=== PATIENT | female | born 1960 | race Caucasian/White ===

== ENCOUNTER → 2017-09-02 10:33 | Outpatient (CLI) | payer OTHER, SELFPAY ==
[2017-09-02 10:50] LABS: Potassium 5.1 mmol/L (3.5-5.1)
== END ==
PROVIDERS: Family Provider Internal Medicine; PCP Internal Medicine; Visit Provider Internal Medicine
DX: E87.5 Hyperkalemia (principal)
CPT/HCPCS: 84132

== ENCOUNTER 2017-10-19 11:31 | Emergency (ER) | payer OTHER, SELFPAY ==
[2017-10-19 11:33] VITALS: BP 125/74; PULSE 93; RESP 22; TEMP 36.5; O2SAT 97; BMI 22.4
--- NOTE | 2017-10-19 11:58 | US_ITS ---
STUDY: ABDOMINAL ULTRASOUND - RIGHT UPPER QUADRANT REASON FOR VISIT: Female, 57 years old. Abdominal pain. Nausea and vomiting. TECHNIQUE: Ultrasound evaluation of the right upper quadrant was performed with real-time and static hopper-scale imaging. TECHNICAL QUALITY: Adequate. COMPARISON: None. FINDINGS: Liver: The liver measures 12.0 cm. There is normal echogenicity of the liver. The bile ducts are within normal limits. There is hepatic color flow. The direction of portal flow is hepatopetal. There is no demonstrated mass lesion. Gallbladder: Normal distended gallbladder. The gallbladder wall measures 2.4 mm. There is a negative sonographic Stuart's sign. There is no pericholecystic fluid. There are no gallstones. Common Bile Duct (C.B.D.): The common bile duct measures 5.3 mm. Pancreas: Normal size of the head, body of the pancreas. The tail portion was obscured due to overlying bowel gas. There is normal echogenicity of the pancreas. There is no demonstrated pancreatic mass or cyst. Right Kidney: Normal size of the right kidney. The right kidney measures 10.4 cm x 4.4 cm x 5.6 cm. Normal renal cortex. The right cortex measures 1.6 cm. There is no demonstrated renal mass or cyst. There is no right hydronephrosis. US/Gallbladder IMPRESSION: Normal right upper quadrant ultrasound examination. Electronically Signed: Harsh Almeida MD at 12:56 EDT Tel [phone], Service support ,
[2017-10-19] MEDS: proMETHazine 25 MG/ML Syringe 12.5 MG IV (12:04)
[2017-10-19] MEDS: Ketorolac 30 MG/ML Syringe 15 MG IV (12:07)
[2017-10-19] MEDS: Morphine 4 MG/ML Syringe IV (12:07)
[2017-10-19 12:11] LABS: Absolute Lymphocyte Count 1.53 X10^3/ul (0.83-4.51); Absolute Neutrophil Count 8.6 X10^3/uL (2.0-7.7); Basophil# 0.02 X10^3/uL; Basophil% 0.2 % (0-1); Eosinophil# 0.02 X10^3/uL; Eosinophils% 0.2 % (0-5); Hemoglobin 15.5 g/dl (12.0-15.0); Lymphocyte # 1.53 X10^3/ul (4.0); Lymphocyte % 14.1 % (19-41); Mean Corp Hgb Conc 33.7 g/gl (32-36); Mean Corpuscular Hgb 27.3 pg (27.0-32.0); Mean Corpuscular Volume 81.1 fL (81-99); Mean Platelet Vol. 10.5 fl (6.2-12.0); Monocyte# 0.66 X10^3/uL; Monocyte% 6.1 % (0-10); Neutrophil # 8.59 X10^3/uL (2.7-7.7); Platelet Count 282 K/mm3 (150-450); RBC Distribution Width CV 14.3 % (11.6-14.6); RBC Distribution Width SD 42.7 fl (35.1-43.9); Red Blood Count 5.67 M/mm3 (4.2-5.4); White Blood Count 10.9 K/mm3 (4.4-11.0)
[2017-10-19] MEDS: 0.9% Normal Saline 1,000 ML 1000 ML IV (12:14)
--- NOTE | 2017-10-19 12:15 | ED.DCSUM_ITS ---
History of Present Illness Chief Complaint: Abd Pain Informant: Patient Onset: Days - 2 Context: Sudden Onset - woke her up at 1 AM Timing: Continuous Quality: dull. constant w/ colicky exac's at times. Location: RUQ Current Severity: Severe Maximum Severity: Severe Worsened by: nothing. has not been eating. Relieved by: nothing. has tried no meds. Associated Symptoms: n/v/d Narrative: Patient states the day before the onset, she felt bloated and decreased appetite , and some heartburn which she has a history of and takes no medication for. That night, 2 nights ago, she woke up in the middle the night with this pain that she did not have before, as well as intense vomiting. Yesterday she basically ate nothing but a cracker, when she ate that she vomited immediately but it did not do much more pain. Her pain has worsened however. She denies any radiation into the back or shoulder. She has had a prior but no other prior abdominal surgeries or excisions. No chest discomfort now. No dyspnea. Prior similar symptoms: No - Past Medical History (1) DM type 2 (diabetes mellitus, type 2) Status: Chronic (2) GERD (gastroesophageal reflux disease) Status: Chronic (3) COPD (chronic obstructive pulmonary disease) Status: Chronic (4) Factor V Leiden Status: Chronic Past Medical History - Allergies and Home Meds Allergies/Adverse Reactions: Allergies No Known Allergies Allergy (Verified 10/19/17 11:35) Home Medications: Home Medications Medication Instructions Recorded Sertraline HCl [Zoloft] 25 mg PO DAILY 01/31/17 Apixaban [Eliquis] 1 tab PO BID 03/10/17 Amlodipine [Norvasc] 2.5 mg PO DAILY 10/19/17 Budesonide/Formoterol 160/4.5 2 puff IH BID 10/19/17 [Symbicort 160/4.5 Mcg Inhaler (SP)] Empagliflozin [Jardiance] 1 tab PO DAILY 10/19/17 Metformin HCl 500 mg PO DAILY 10/19/17 Metformin HCl [Glucophage] 1,000 mg PO QHS 10/19/17 Omeprazole 20 mg PO DAILY #14 capsule. 10/19/17 Ondansetron [Zofran Odt] 8 mg PO Q8H PRN PRN #12 10/19/17 Risedronate Sodium [Risedronate 1 tab PO QMONTH 10/19/17 Sodium] Rosuvastatin Calcium 10 mg PO DAILY 10/19/17 Primary Care Physician: Rosemary Danielle DO [Primary Care Provider] - Surgical History: - - c-sections Smoking Status: Current every day smoker Drugs: None Review of Systems All systems negative except as indicated General: Reports: Malaise. Denies: Fever Cardiovascular: Denies: Chest pain Respiratory: Reports: Cough - chronic, no chg. Denies: Dyspnea Gastrointestinal: Reports: Abdominal pain, Nausea, Vomiting, Diarrhea. Denies: Melena, Hematochezia Genitourinary: Denies: Dysuria, Hematuria Musculoskeletal: Denies: Neck pain, Back pain Skin: Denies: Rash, Abscess Neurological: Denies: Headache, Weakness, Parasthesia, Numbness Psych: Denies: Suicidal thoughts, Suicidal ideations Endocrine: Denies: Polyuria, Polydipsia Hematologic: Denies: Easy bruising, Easy bleeding Physical Exam Vital Signs/Narrative: Vital Signs Temp Pulse Resp BP Pulse Ox 10/19/17 11:33 97.7 F L 93 22 H 125/74 H 97 Inital Vital Signs reviewed: Yes General: Well nourished, Well developed, - - in mild acute painful distress Head: Normocephalic, Atraumatic Eyes: Perrl, EOMI ENT: Moist mucous membranes, No rhinorrhea Neck: Supple, Nontender Cardiovascular: Regular rate, Regular rhythm, No murmurs Respiratory: No distress, CTA bilaterally, Chest nontender Abdomen: Soft, Nondistended, Normal bowel sounds, Tender - RUQ > epigast. otherwise, nontender., Guarding - RUQ. Negative for: Rebound tenderness Back: Nontender, Normal Inspection. Negative for: CVA tenderness Extremities: Nontender, No edema Skin: Normal color, No rash Neurological: Alert, Oriented x3, Cranial nerves II-XII grossly intact, Normal Strength, Normal Sensation Psychological: Normal affect Diagnostic/Tx/Re-eval Impressions Gallbladder Ultrasound 10/19/17 11:58 IMPRESSION: Normal right upper quadrant ultrasound examination. Electronically Signed: Harsh Almeida MD at 12:56 EDT Tel [phone], Service support , Abdomen/Pelvis CT 10/19/17 13:15 IMPRESSION: No acute abnormality is seen. Electronically Signed: Harsh Almeida MD at 14:13 EDT Tel [phone], Service support , 10/19/17 11:58 Gallbladder [US] Stat 10/19/17 13:15 CT Abd [Abdomen/Pelvis without Cont] [CT] Stat Laboratory Results 10/19/17 10/19/17 10/19/17 Range/Units 11:50 11:50 13:00 WBC 10.9 (4.4-11.0) K/mm3 RBC 5.67 H (4.2-5.4) M/mm3 Hgb 15.5 H (12.0-15.0) g/dl Hct 46.0 (37-47) % MCV 81.1 (81-99) fL MCH 27.3 (27.0-32.0) pg MCHC 33.7 (32-36) g/gl RDW 14.3 (11.6-14.6) % RDW Differential 42.7 (35.1-43.9) fl Plt Count 282 (150-450) K/mm3 MPV 10.5 (6.2-12.0) fl Immature Gran % (Auto) 0.400 (0.0-0.9) % Neut % (Auto) 79.0 H (47-70) % Lymph % (Auto) 14.1 L (19-41) % [place] % (Auto) 6.1 (0-10) % Eos % (Auto) 0.2 (0-5) % Baso % (Auto) 0.2 (0-1) % Absolute Neuts (auto) 8.6 H (2.0-7.7) X10^3/uL Absolute Lymphs (auto) 1.53 (0.83-4.51) X10^3/ul Total Counted Not Reportable Sodium 136 (136-145) mmol/L Potassium 3.8 (3.5-5.1) mmol/L Chloride 98 (98-107) mmol/L Carbon Dioxide 25.0 (21.0-32.0) mmol/L Anion Gap 13 (5-15) BUN 23 H (7-18) mg/dL Creatinine 0.88 (0.55-1.02) mg/dL Estim Creat Clear Calc 58.35 ml/min Est GFR (MDRD) Af Amer 85 (>60) mL/min Est GFR (MDRD) Non-Af 70 (>60) mL/min BUN/Creatinine Ratio 26.0 H (10-20) RATIO Glucose 164 H (74-106) mg/dL Calcium 9.1 (8.5-10.1) mg/dL Total Bilirubin 0.60 (0.20-1.00) mg/dL AST 14 L (15-37) U/L ALT 16 (13-56) U/L Alkaline Phosphatase 103 (45-117) U/L Total Protein 8.3 H (6.4-8.2) g/dL Albumin 3.7 (3.2-5.0) g/dL Globulin 4.6 H (2.2-4.2) g/dL Albumin/Globulin Ratio 0.8 L (0.9-2.4) RATIO Lipase 112 (73-393) U/L Urine Color Yellow (Yellow) Urine Clarity Sl. Cloudy (Clear) Urine pH 6.0 (5.0 - 8.0) Ur Specific [place] 1.020 (1.002-1.030) Urine Protein 100 H (Negative) mg/dl Urine Glucose (UA) 1000 H (Normal) mg/dl Urine Ketones 150 H (Negative) mg/dl Urine Occult Blood 250 H (Negative) /ul Urine Nitrite Negative (Negative) Urine Bilirubin Negative (Negative) mg/dL Urine Urobilinogen Normal (Normal) mg/dl Ur Leukocyte Esterase Negative (Negative) /ul Urine RBC 25-50 SEEN (0-5) /hpf Urine WBC 0-5 SEEN (0-5) /hpf Ur Squamous Epith Cells 0-5 SEEN (5-10) /hpf Urine Bacteria 0 SEEN (None Seen) /hpf Urine Mucus 0 SEEN (<or=2+) /hpf Urine Yeast 1+ (None Seen) /hpf - Medical Decision Making Labs are unremarkable, there is a slight leftward shift but the white blood count is within normal limits, and LFTs and lipase are all within normal limits. Urinalysis shows blood but no signs of infection. Right upper quadrant ultrasound is normal aside from a distended gallbladder, there is a negative sonographic Stuart's. No stones are seen. The right kidney is within normal limits. Patient was treated with morphine and Toradol and Phenergan, she is drastically improved on reevaluation. I sent her for CT, it shows no acute abnormalities except for some retroperitoneal lymphadenopathy. She is feeling much better drinking fluids without difficulty. She has history of reflux and it is untreated right now because she has not had many symptoms of that recently. Peptic ulcer/duodenal ulcer disease is in the differential diagnosis here, I think it is reasonable to put her on a two-week course of a PPI and advised that she follow-up with her doctor. She is comfortable with this plan. Of note, we also discussed the possibility of a calculus biliary pain, and the need for advanced outpatient testing in order to determine that. She does not have acute cholecystitis at this time. Also in the differential diagnosis is viral gastritis. ED Disposition - Plan for ED Patient: Disposition: Home or Assisted Living Chief Complaint: Abd Pain Diagnosis: RUQ abdominal pain, GERD (gastroesophageal reflux disease) Instructions: ED Abdominal Pain Unkn Cause Prescriptions: Ondansetron [Zofran Odt] 8 mg PO Q8H PRN PRN #12 PRN Reason: Nausea Omeprazole 20 mg PO DAILY #14 capsule. Referrals: Rosemary Danielle DO [Primary Care Provider] - 3-5 Days if not improving
[2017-10-19 12:16] LABS: POSITIVE COUNT NO; POSITIVE DIFFERENTIAL NO; POSITIVE MORPHOLOGY NO
[2017-10-19 12:20] LABS: ALB/GLOB Ratio 0.8 RATIO (0.9-2.4); AST(SGOT) 14 U/L (15-37); Alanine Aminotransfer ALT/SGPT 16 U/L (13-56); Albumin, Serum 3.7 g/dL (3.2-5.0); Alkaline Phosphatase 103 U/L (45-117); Anion Gap 13 (5-15); BUN 23 mg/dL (7-18); Calcium,Total 9.1 mg/dL (8.5-10.1); Chloride 98 mmol/L (98-107); Creatinine, Serum 0.88 mg/dL (0.55-1.02); EST Glomerular Filtration Rate 70 mL/min (>60); Est Glom Filt Rate - Afr Amer 85 mL/min (>60); Estimated Creatinine Clearance 58.35 ml/min; Globulin 4.6 g/dL (2.2-4.2); Glucose 164 mg/dL (74-106); Lipase 112 U/L (73-393); Potassium 3.8 mmol/L (3.5-5.1); Protein, Total 8.3 g/dL (6.4-8.2); Sodium Level 136 mmol/L (136-145)
[2017-10-19 13:09] LABS: Bacteria 0 SEEN /hpf (None Seen); Mucous, Urine 0 SEEN /hpf (<or=2+)
--- NOTE | 2017-10-19 13:15 | CT_ITS ---
STUDY: CT ABDOMEN AND PELVIS WITHOUT CONTRAST REASON FOR EXAM: Female, 57 years old. Right upper abdominal pain and nausea. Right flank pain. RADIATION DOSAGE (If Supplied By Facility): CTDIvol = ( 6.3 ) mGy, DLP = ( 276.91 ) mGycm TECHNIQUE: Transaxial images were obtained from the dome of the diaphragm to the symphysis pubis without oral contrast, and without intravenous contrast. Sagittal and coronal images were reconstructed. Individualized dose optimization techniques were used for this CT. COMPARISON: Comparison is made with prior study dated March 10, 2017. FINDINGS: The visualized lung bases are unremarkable. The visualized portions of the heart are within normal limits. Normal liver. Normal gallbladder and extrahepatic biliary system. Normal spleen. Normal pancreas. Normal bilateral adrenal glands. Normal right kidney. Normal left kidney. Normal visualized stomach. Normal small intestine. Normal colon. The appendix is visualized and appears normal. There is scattered atherosclerotic calcification of the abdominal aorta, without a demonstrated aneurysm. 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 There is borderline retroperitoneal lymphadenopathy with enlarged nodes no greater than 10mm in the short axis diameter. Normal urinary bladder. Findings in keeping with enlarged fibroid uterus. Normal abdominal wall. Normal osseous structures. CT/Abdomen/Pelvis without Cont IMPRESSION: No acute abnormality is seen. Electronically Signed: Harsh Almeida MD at 14:13 EDT Tel [phone], Service support ,
[2017-10-19 13:18] LABS: Color, Urine Yellow (Yellow); Glucose, Dipstick 1000 mg/dl (Normal); Leukocyte Esterase-Dipstick Negative /ul (Negative); Nitrite-Dipstick Negative (Negative); Occult Blood-Urine 250 /ul (Negative); Protein-Dipstick 100 mg/dl (Negative); Urine Bilirubin Dipstick Negative (Negative); Urine Clarity Sl. Cloudy (Clear); Urine Urobilinogen Normal (Normal)
[2017-10-19 13:19] LABS: Ketone-Dipstick 150 mg/dl (Negative)
--- NOTE | 2017-10-19 13:21 | ED.RN ---
DR. RIOS NOTIFIED OF CRITICAL LAB RESULTS. PT HAS 150 KETONES IN URINE. NO ORDERS RECEIVED.
[2017-10-19 13:27] LABS: Red Blood Cells-Urine 25-50 SEEN /hpf (0-5); Squamous Epithelial Cells - UA 0-5 SEEN /hpf (5-10); White Blood Cells 0-5 SEEN /hpf (0-5); Yeast-Urine 1+ /hpf (None Seen)
[2017-10-19 16:48] VITALS: BP 132/57; PULSE 81; RESP 16; O2SAT 96
== END 2017-10-19 16:50 | disposition home or self-care (01) ==
PROVIDERS: Emergency Provider Emergency Medicine; Family Provider Internal Medicine; PCP Internal Medicine
DX: K21.9 Gastro-esophageal reflux disease without esophagitis (principal); R10.11 Right upper quadrant pain; E11.9 Type 2 diabetes mellitus without complications; J44.9 Chronic obstructive pulmonary disease, unspecified; D68.51 Activated protein C resistance; F17.200 Nicotine dependence, unspecified, uncomplicated; Z79.02 Long term (current) use of antithrombotics/antiplatelets; Z79.51 Long term (current) use of inhaled steroids; Z79.84 Long term (current) use of oral hypoglycemic drugs; Z79.899 Other long term (current) drug therapy
CPT/HCPCS: 74176; 76705; 80053; 81001; 83690; 85025; 96361; 96374; 96375; 99284; J7030; A4216

== ENCOUNTER → 2017-10-20 13:52 | Outpatient (CLI) | payer OTHER, SELFPAY ==
[2017-10-20 14:12] LABS: Absolute Lymphocyte Count 1.84 X10^3/ul (0.83-4.51); Absolute Neutrophil Count 7.7 X10^3/uL (2.0-7.7); Basophil# 0.02 X10^3/uL; Basophil% 0.2 % (0-1); Eosinophil# 0.06 X10^3/uL; Eosinophils% 0.6 % (0-5); Hematocrit 44.5 % (37-47); Hemoglobin 14.6 g/dl (12.0-15.0); Lymphocyte # 1.84 X10^3/ul (4.0); Lymphocyte % 17.4 % (19-41); Mean Corp Hgb Conc 32.8 g/gl (32-36); Mean Corpuscular Hgb 27.1 pg (27.0-32.0); Mean Corpuscular Volume 82.6 fL (81-99); Monocyte# 0.99 X10^3/uL; Monocyte% 9.4 % (0-10); Neutrophil # 7.65 X10^3/uL (2.7-7.7); Neutrophil % 72.2 % (47-70); Platelet Count 258 K/mm3 (150-450); RBC Distribution Width CV 13.9 % (11.6-14.6); RBC Distribution Width SD 41.4 fl (35.1-43.9); Red Blood Count 5.39 M/mm3 (4.2-5.4); White Blood Count 10.6 K/mm3 (4.4-11.0)
[2017-10-20 14:13] LABS: POSITIVE COUNT NO; POSITIVE DIFFERENTIAL NO; POSITIVE MORPHOLOGY NO
[2017-10-20 14:26] LABS: AST(SGOT) 14 U/L (15-37); Alanine Aminotransfer ALT/SGPT 13 U/L (13-56); Albumin, Serum 3.2 g/dL (3.2-5.0); Alkaline Phosphatase 85 U/L (45-117); Anion Gap 9 (5-15); BUN 21 mg/dL (7-18); Calcium,Total 8.2 mg/dL (8.5-10.1); Chloride 102 mmol/L (98-107); EST Glomerular Filtration Rate 92 mL/min (>60); Est Glom Filt Rate - Afr Amer 111 mL/min (>60); Globulin 3.3 g/dL (2.2-4.2); Glucose 100 mg/dL (74-106); Potassium 4.3 mmol/L (3.5-5.1); Protein, Total 6.5 g/dL (6.4-8.2); Sodium Level 137 mmol/L (136-145)
== END ==
PROVIDERS: Family Provider Internal Medicine; PCP Internal Medicine; Visit Provider Internal Medicine
DX: R11.2 Nausea with vomiting, unspecified (principal)
CPT/HCPCS: 80053; 85025

== ENCOUNTER → 2018-02-17 13:08 | Outpatient (CLI) | payer OTHER, SELFPAY ==
[2018-02-17 13:15] LABS: Bacteria 0 SEEN /hpf (None Seen); Mucous, Urine 0 SEEN /hpf (<or=2+); White Blood Cells 0 SEEN /hpf (0-5)
[2018-02-17 13:18] LABS: Color, Urine Yellow (Yellow); Glucose, Dipstick 1000 mg/dl (Normal); Ketone-Dipstick Negative (Negative); Leukocyte Esterase-Dipstick Negative /ul (Negative); Nitrite-Dipstick Negative (Negative); Occult Blood-Urine 250 /ul (Negative); Protein-Dipstick 500 mg/dl (Negative); Urine Bilirubin Dipstick Negative (Negative); Urine Clarity Clear (Clear); Urine Urobilinogen Normal (Normal)
[2018-02-17 13:22] LABS: Absolute Lymphocyte Count 2.05 X10^3/ul (0.83-4.51); Absolute Neutrophil Count 7.1 X10^3/uL (2.0-7.7); Basophil# 0.03 X10^3/uL; Basophil% 0.3 % (0-1); Eosinophil# 0.14 X10^3/uL; Eosinophils% 1.4 % (0-5); Hematocrit 43.5 % (37-47); Hemoglobin 13.9 g/dl (12.0-15.0); Lymphocyte # 2.05 X10^3/ul (4.0); Lymphocyte % 20.7 % (19-41); Mean Corpuscular Hgb 27.4 pg (27.0-32.0); Mean Corpuscular Volume 85.8 fL (81-99); Mean Platelet Vol. 10.3 fl (6.2-12.0); Monocyte# 0.58 X10^3/uL; Monocyte% 5.9 % (0-10); Neutrophil % 71.6 % (47-70); POSITIVE COUNT NO; POSITIVE DIFFERENTIAL NO; POSITIVE MORPHOLOGY NO; Platelet Count 271 K/mm3 (150-450); RBC Distribution Width CV 14.6 % (11.6-14.6); RBC Distribution Width SD 45.4 fl (35.1-43.9); Red Blood Count 5.07 M/mm3 (4.2-5.4); White Blood Count 9.9 K/mm3 (4.4-11.0)
[2018-02-17 13:23] LABS: Red Blood Cells-Urine 0-5 SEEN /hpf (0-5); Squamous Epithelial Cells - UA 0-5 SEEN /hpf (5-10)
[2018-02-17 13:24] LABS: Fine Granular Cast- Urine 0-5 SEEN /lpf (0-5)
[2018-02-17 13:40] LABS: ALB/GLOB Ratio 0.8 RATIO (0.9-2.4); AST(SGOT) 15 U/L (15-37); Alanine Aminotransfer ALT/SGPT 20 U/L (13-56); Albumin, Serum 2.8 g/dL (3.2-5.0); Alkaline Phosphatase 105 U/L (45-117); Anion Gap 9 (5-15); BUN 15 mg/dL (7-18); BUN/Creat Ratio 20.2 RATIO (10-20); Calcium,Total 8.4 mg/dL (8.5-10.1); Chloride 99 mmol/L (98-107); Creatinine, Serum 0.74 mg/dL (0.55-1.02); EST Glomerular Filtration Rate 85 mL/min (>60); Est Glom Filt Rate - Afr Amer 103 mL/min (>60); Globulin 3.7 g/dL (2.2-4.2); Glucose 192 mg/dL (74-106); Potassium 4.1 mmol/L (3.5-5.1); Protein, Total 6.5 g/dL (6.4-8.2); Sodium Level 137 mmol/L (136-145); Thyroid Stim Hormone (TSH) 1.07 uIU/mL (0.358-3.74)
== END ==
PROVIDERS: Family Provider Internal Medicine; PCP Internal Medicine; Visit Provider Internal Medicine
DX: R60.9 Edema, unspecified (principal)
CPT/HCPCS: 80053; 81001; 83880; 84443; 85025

== ENCOUNTER → 2018-02-18 14:39 | Outpatient (CLI) | payer OTHER, SELFPAY ==
--- NOTE | 2018-02-18 14:42 | VDLE_ITS ---
Reason For Study: LEG SWELLING RIGHT LEFT GSV is normal. GSV is normal. CFV is partially compressible with bright CFV is partially compressible with bright intraluminal echoes consistant with chronic intraluminal echoes consistant with chronic clot. clot. FV is compressible, spontaneous, phasic, FV is compressible, spontaneous, phasic, competent and demonstrates normal competent and demonstrates normal augmentation. augmentation. POP V is compressible, spontaneous, phasic, POP V is compressible, spontaneous, phasic, competent and demonstrates normal competent and demonstrates normal augmentation. augmentation. T/P Trunk is compressible. T/P Trunk is compressible. PTV is compressible. PTV is compressible. RT PerV is compressible. LT PerV is compressible. Procedure Exam performed in department. A preliminary report was called and/or faxed to Dr. Danielle. Interpretation Summary Chronic venous changes are noted in the common femoral veins bilaterally, which are partially compressible and demonstrate bright intraluminal echogenicity. The remainder of the deep venous system is patent and compressible bilaterally. The femoral veins and popliteal veins are competent bilaterally. The greater saphenous veins appear bilaterally patent and compressible segmentally. Ordering Physician: Rosemary Danielle Referring Physician: Rosemary Danielle Performed By: Saritha Dominguez RVT
== END ==
PROVIDERS: Family Provider Internal Medicine; PCP Internal Medicine; Visit Provider Internal Medicine
DX: R60.9 Edema, unspecified (principal)
CPT/HCPCS: 93970

== ENCOUNTER → 2018-03-16 13:37 | Outpatient (CLI) | payer OTHER, SELFPAY ==
--- NOTE | 2018-03-16 13:40 | ECHOD_ITS ---
Reason For Study: Edema of both legs Procedure This was a 2D Doppler, Color Flow transthoracic echocardiogram. The exam was of adequate technical quality. Exam performed in department. Left Ventricle Normal LV size. Left ventricular systolic function is normal. The estimated ejection fraction is 65 %. Transmitral doppler flow suggestive of impaired relaxation of left ventricle. No regional wall motion abnormalities noted. Right Ventricle Normal RV size. Normal systolic function. Atria Normal left atrium. Normal right atrium. No doppler evidence for ASD. Mitral Valve There is no mitral annular calcification. Normal mitral valve. Trivial mitral valve insufficiency. Tricuspid Valve Normal tricuspid valve. Trivial tricuspid valve insufficiency. Right ventricular systolic pressure estimated to be 28 mmHg. Aortic Valve Trisinus/trileaflet aortic valve. Normal aortic valve. Pulmonic Valve The pulmonic valve is not well visualized. Great Vessels Normal sized aortic root. Pericardium/Pleural Trivial pericardial effusion. There are no echocardiographic indications of cardiac tamponade. MMode/2D Measurements & Calculations LVIDd: 4.9 cm IVSd: 1.0 cm LVOT diam: 2.0 cm LVIDs: 3.1 cm LVPWd: 1.0 cm LVOT area: 3.0 cm2 FS: 35.8 % Ao root diam: 3.0 cm LAV(MOD-bp): 53.7 ml LVAd ap4: 23.8 cm2 LA dimension: 3.5 cm LAV(MOD-bp) Indexed: 32.5 ml/m2 EDV(MOD-sp4): 67.9 ml LAV(MOD-sp2): 46.3 ml EDV(sp4-el): 70.0 ml LAV(MOD-sp4): 52.9 ml LVAs ap4: 12.2 cm2 ESV(MOD-sp4): 23.2 ml ESV(sp4-el): 22.4 ml EF(MOD-sp4): 65.8 % EF(sp4-el): 68.0 % SV(MOD-sp4): 44.7 ml SV(sp4-el): 47.6 ml LA A4 area: 17.0 cm2 RA A4 area: 14.6 cm2 Time Measurements MV dec time: 0.17 sec Doppler Measurements & Calculations MV E max allan: 77.2 cm/sec Lat Peak E' Allan: 11.4 cm/sec Med Peak E' Allan: 7.3 cm/sec MV A max allan: 101.4 cm/sec E/E' lat: 6.8 E/E' med: 10.6 MV E/A: 0.76 MV V2 max: 114.0 cm/sec MV P1/2t max allan: 96.6 cm/sec Ao V2 max: 143.8 cm/sec MV max P.2 mmHg MV P1/2t: 49.6 msec Ao max P.3 mmHg MV V2 mean: 75.0 cm/sec MV dec slope: 570.7 cm/sec2 Ao V2 mean: 92.3 cm/sec MV mean P.6 mmHg MVA(P1/2t): 4.4 cm2 Ao mean P.9 mmHg MV V2 VTI: 20.8 cm Ao V2 VTI: 29.2 cm MVA(VTI): 3.8 cm2 TRAVIS(I,D): 2.7 cm2 TRAVIS(V,D): 2.5 cm2 LV V1 max: 116.5 cm/sec SV(LVOT): 78.7 ml PA V2 max: 90.5 cm/sec LV V1 max P.4 mmHg LV V1 mean P.7 mmHg LV V1 mean: 77.5 cm/sec LV V1 VTI: 25.8 cm TR max allan: 251.4 cm/sec TR max P.3 mmHg Interpretation Summary Left ventricular systolic function is normal. The estimated ejection fraction is 65 %. Trivial mitral valve insufficiency. Trivial tricuspid valve insufficiency. Trivial pericardial effusion. There are no echocardiographic indications of cardiac tamponade. Right ventricular systolic pressure estimated to be 28 mmHg. Transmitral doppler flow suggestive of impaired relaxation of left ventricle Ordering Physician: Rosemary Danielle Referring Physician: Rosemary Danielle Performed By: Moris Perez RCS
== END ==
PROVIDERS: Family Provider Internal Medicine; PCP Internal Medicine; Referring Provider Internal Medicine; Visit Provider Internal Medicine
DX: R60.0 Localized edema (principal)
CPT/HCPCS: 93306

== ENCOUNTER → 2018-03-25 14:30 | Outpatient (CLI) | payer OTHER, SELFPAY ==
--- NOTE | 2018-03-25 14:31 | BI_ITS ---
MAMMOGRAPHY - BILATERAL SCREENING REASON FOR EXAM: Female, 58 years old. Routine annual screening examination. PERTINENT HISTORY: Non-contributory. TECHNIQUE: Digital bilateral breast thiago (3D mammographic acquisition) in the CC and MLO projections. 2-D mediolateral oblique (MLO) and craniocaudad (CC) views of both breasts were obtained. CAD: Full Field Digital Mammography with Computer Added Detection was performed. COMPARISON: Comparison is made with prior study dated March 24, 2017. FINDINGS: Breast Composition: There are scattered areas of fibroglandular density. There are no dominant masses or suspicious calcifications. No other significant abnormalities are identified. There has been no significant change since the prior study. BI/SCREENING MAMM (CAD), BILAT IMPRESSION: Stable bilateral screening mammogram. Yearly follow-up mammogram recommended. (A) ASSESSMENT CATEGORY: BIRADS Category 1: Negative. A letter regarding these results will be sent to the patient by the facility within 30 days. Approximately 10% of breast cancers are not detected by mammography. A normal mammogram should not delay biopsy of a clinically suspicious abnormality. [id number] Electronically Signed: Harsh Almeida MD at 10:29 EDT Tel [phone], Service support ,
== END ==
PROVIDERS: Family Provider Internal Medicine; PCP Internal Medicine; Referring Provider Internal Medicine; Visit Provider Internal Medicine
DX: Z12.31 Encounter for screening mammogram for malignant neoplasm of breast (principal)
CPT/HCPCS: 77063; 77067

== ENCOUNTER 2018-07-12 15:25 | Inpatient (IN) | payer OTHER, SELFPAY ==
[2018-07-12] VITALS (10 sets, daily range): BP systolic 98–145; BP diastolic 56–85; PULSE 92–115; RESP 16–31; TEMP 36.6–37.2; O2SAT 81–96; BMI 23.2; BMI 23.0
--- NOTE | 2018-07-12 15:34 | EKG12_ITS ---
Test Reason : Blood Pressure : / mmHG Vent. Rate : 095 BPM Atrial Rate : 095 BPM P-R Int : 138 ms QRS Dur : 088 ms QT Int : 368 ms P-R-T Axes : 071 -13 063 degrees QTc Int : 462 ms Normal sinus rhythm Normal ECG Confirmed by DANYELL LORA, BREN ([id number]), scientific editor PHILIPPE BARNES ([id number]) on 07/14/2018 2:00:20 PM Referred By: JOHNNY Confirmed By:BREN CHILD MD
--- NOTE | 2018-07-12 16:10 | RAD_ITS ---
STUDY: X-RAY CHEST REASON FOR EXAM: Female, 58 years old. Shortness of breath. Dyspnea. TECHNIQUE: Single AP portable view of the chest. COMPARISON: February 02, 2017. FINDINGS: There are reticulonodular and groundglass increased opacities of the lower lungs. There is no demonstrated pleural abnormality. Normal size heart. Normal mediastinum and eben. Normal visualized pulmonary arteries. Normal visualized aortic arch and descending thoracic aorta. Normal visualized thoracic spine. Normal visualized ribs, clavicles, and shoulders. There is no demonstrated abnormality of the visualized soft tissue structures of the upper abdomen. RAD/Chest 1 View (Portable) IMPRESSION: Lower lung infiltrates or edema. Electronically Signed: Jersey Pires MD at 16:54 EST , Service support ,
[2018-07-12 16:16] LABS: Anion Gap 10 (5-15); BUN 21 mg/dL (7-18); BUN/Creat Ratio 17.4 RATIO (10-20); Calcium,Total 8.2 mg/dL (8.5-10.1); Chloride 89 mmol/L (98-107); Creatinine, Serum 1.21 mg/dL (0.55-1.02); EST Glomerular Filtration Rate 49 mL/min (>60); Est Glom Filt Rate - Afr Amer 59 mL/min (>60); Estimated Creatinine Clearance 41.92 ml/min; Glucose 284 mg/dL (74-106); Potassium 3.9 mmol/L (3.5-5.1); Sodium Level 125 mmol/L (136-145)
[2018-07-12] MEDS: Ipratropium/Albuterol Sulfate 3 ML AMPUL.NEB INHALATION (16:16)
[2018-07-12] MEDS: MethylPREDNISolone 125 MG/2 ML Vial IV (16:23)
[2018-07-12] MEDS: 0.9% Normal Saline 1,000 ML 150 ML IV (16:23)
[2018-07-12 16:29] LABS: Lactic Acid 1.6 mmol/L (0.4-2.0)
[2018-07-12 16:32] LABS: Absolute Lymphocyte Count 0.83 X10^3/ul (0.83-4.51); Basophil# 0.01 X10^3/uL; Basophil% 0.1 % (0-1); Eosinophil# 0.01 X10^3/uL; Eosinophils% 0.1 % (0-5); Hematocrit 41.5 % (37-47); Hemoglobin 13.8 g/dl (12.0-15.0); Lymphocyte # 0.83 X10^3/ul (4.0); Lymphocyte % 6.4 % (19-41); Mean Corp Hgb Conc 33.3 g/gl (32-36); Mean Corpuscular Hgb 26.5 pg (27.0-32.0); Mean Corpuscular Volume 79.7 fL (81-99); Mean Platelet Vol. 10.3 fl (6.2-12.0); Monocyte# 0.97 X10^3/uL; Monocyte% 7.5 % (0-10); Neutrophil # 11.01 X10^3/uL (2.7-7.7); Neutrophil % 85.6 % (47-70); POSITIVE COUNT NO; POSITIVE DIFFERENTIAL NO; POSITIVE MORPHOLOGY NO; Platelet Count 205 K/mm3 (150-450); RBC Distribution Width CV 15.2 % (11.6-14.6); RBC Distribution Width SD 44.1 fl (35.1-43.9); Red Blood Count 5.21 M/mm3 (4.2-5.4); White Blood Count 12.9 K/mm3 (4.4-11.0)
[2018-07-12 16:35] LABS: Mucous, Urine 0 SEEN /hpf (<or=2+)
[2018-07-12 16:42] LABS: Color, Urine Yellow (Yellow); Glucose, Dipstick 1000 mg/dl (Normal); Ketone-Dipstick Negative (Negative); Leukocyte Esterase-Dipstick Negative /ul (Negative); Nitrite-Dipstick Negative (Negative); Occult Blood-Urine 150 /ul (Negative); Protein-Dipstick 500 mg/dl (Negative); Urine Bilirubin Dipstick Negative (Negative); Urine Clarity Sl. Cloudy (Clear); Urine Urobilinogen 1 mg/dl (Normal)
[2018-07-12 17:14] LABS: Red Blood Cells-Urine 0-5 SEEN /hpf (0-5); Squamous Epithelial Cells - UA 5-10 SEEN /hpf (5-10); White Blood Cells 0-5 SEEN /hpf (0-5)
[2018-07-12 17:15] LABS: Bacteria 2+ /hpf (None Seen); Fine Granular Cast- Urine 0-5 SEEN /lpf (0-5)
[2018-07-12] MEDS: levoFLOXacin IV 750 MG/150 ML BAG 100 MG IV (17:40)
--- NOTE | 2018-07-12 17:41 | HP.PCM_ITS ---
<Vani Hill - Last Filed: 07/12/18 17:56> Problem List (1) DM type 2 (diabetes mellitus, type 2) Status: Chronic (2) GERD (gastroesophageal reflux disease) Status: Chronic (3) COPD (chronic obstructive pulmonary disease) Status: Chronic (4) Factor V Leiden Status: Chronic (5) HTN (hypertension) Status: Chronic (6) Depression Status: Chronic (7) Tobacco dependence Status: Chronic (8) HLD (hyperlipidemia) Status: Chronic History of Present Illness Date of Admission: 07/12/18 Chief Complaint: Hypoxia, shortness of breath, cough. The patient is a 58 year old F who presents emergency room due to cough, shortness of breath since Thursday. Patient reports she has had increased fatigue. She states she has been caring for her granddaughter who has had an upper respiratory illness. She reports productive cough with green sputum. She denies fever, chills. Reports increased shortness of breath. Patient states she has oxygen available at home which she uses as needed. She has been wearing her oxygen at home but states she is not able to breathe through her nose and feels it is ineffective. Patient saw her primary care physician today and was reported to have significant hypoxia and referred to the emergency room for further evaluation. She has a past medical history of COPD with chronic hypoxic respiratory failure, tobacco dependence reporting she typically smokes up to 2 packs/day, hypertension, hyperlipidemia, factor V deficiency, type 2 diabetes mellitus, depression. Past Medical History Past Medical History (Chronic Problems): Chronic Problems DM type 2 (diabetes mellitus, type 2) (Chronic) GERD (gastroesophageal reflux disease) (Chronic) COPD (chronic obstructive pulmonary disease) (Chronic) Factor V Leiden (Chronic) HTN (hypertension) (Chronic) Depression (Chronic) Tobacco dependence (Chronic) HLD (hyperlipidemia) (Chronic) Allergies No Known Allergies Allergy (Verified 07/12/18 15:28) Home Medications: Ambulatory Orders Medication Instructions Recorded Apixaban [Eliquis] 1 tab PO BID 03/10/17 Amlodipine [Norvasc] 2.5 mg PO DAILY 10/19/17 Budesonide/Formoterol 160/4.5 2 puff IH BID 10/19/17 [Symbicort 160/4.5 Mcg Inhaler (SP)] Atorvastatin Calcium [Lipitor] 20 mg PO QHS 07/12/18 Empagliflozin [Jardiance] 25 mg PO DAILY 07/12/18 Furosemide [Lasix] 40 mg PO DAILY 07/12/18 Insulin Glargine [Lantus SoloStar 25 units SQ QHS 07/12/18 Pen] Lisinopril 5 mg PO DAILY 07/12/18 Metformin(XR) [Glucophage Xr] 1,000 mg PO DAILY 07/12/18 Metformin(XR) [Glucophage Xr] 500 mg PO QHS 07/12/18 Multivitamin [Multiple Vitamins] 1 each PO DAILY 07/12/18 Potassium Chloride [K-Dur] 20 meq PO DAILY 07/12/18 Sertraline HCl 50 mg PO DAILY 07/12/18 Surgical History: - - c-sections x3 Psychiatric History: Depression 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 Paternal History Items: - - Denies paternal cardiac history. Review of Systems Constitutional: Reports: Malaise, Fatigue. Denies: Chills, Fever, Weight Change HEENT: Reports: Nasal Congestion. Denies: Head Aches, Sinus Drainage, Sore Throat Cardiovascular: Denies: Chest Pain, Edema, Light Headedness, Palpitations, Syncope Respiratory: Reports: Cough, Shortness of Breath, Sputum production, Wheezing Gastrointestinal: Denies: Abdominal Pain, Nausea, Vomiting Genitourinary: Denies: Dysuria Musculoskeletal: Denies: Joint Pain, Joint Tenderness Skin: Denies: Rash, Wounds Neurological: Denies: Numbness, Tingling, Focal weakness Psychiatric: Reports: Depression Hematologic/ Lymphatic: Denies: Easy Bruising, Easy Bleeding VTE Information - Inpt Only VTE Present on Admission: No VTE Mechan Device Prophylaxis: None VTE Pharm Prophylaxis ordered?: Yes - Physical Exam General: Alert, Oriented x3, Cooperative HEENT: Atraumatic, PERRLA, EOMI, Normocephalic Neck: Supple, No JVD, Negative Carotid Bruits Lungs: Diminished, Rhonchi, Wheezes Cardiovascular: Regular rate, Regular Rhythm, Normal S1, Normal S2, No murmurs Abdomen: Bowel Sounds Present, Soft, Non Tender, Non-Distended Extremities: No clubbing, No cyanosis, No edema, Capillary Refill Less than 3 Seconds Skin: No rashes, No breakdown Musculoskeletal: No Tenderness to Palpation of Joints or Extremities Neurological: Cranial nerves II-XII grossly intact, Neuro grossly intact Psych/Mental Status: Normal Affect, Appropriate Vital Signs Temp Pulse Resp BP Pulse Ox 98.9 F 92 18 145/70 H 95 07/12/18 15:26 07/12/18 17:00 07/12/18 17:00 07/12/18 17:00 07/12/18 17:00 Oxygen Flow Rate (L/min) 2 Oxygen Delivery Method Nasal Cannula Weight: 131 lb 2.801 oz Body Mass Index (BMI) 23.2 Microbiology Past 72 Hours 07/12/18 16:20 Influenza Types A,B Direct FA (RACHEL) - Final Mucosa - Nose Laboratory Tests Past 24 Hrs 07/12/18 07/12/18 07/12/18 15:30 15:30 15:49 WBC 12.9 H RBC 5.21 Hgb 13.8 Hct 41.5 MCV 79.7 L MCH 26.5 L MCHC 33.3 RDW 15.2 H RDW Differential 44.1 H Plt Count 205 MPV 10.3 Immature Gran % (Auto) 0.300 Neut % (Auto) 85.6 H Lymph % (Auto) 6.4 L [place] % (Auto) 7.5 Eos % (Auto) 0.1 Baso % (Auto) 0.1 Absolute Neuts (auto) 11.0 H Absolute Lymphs (auto) 0.83 Total Counted Not Reportable Sodium 125 L Potassium 3.9 Chloride 89 L Carbon Dioxide 26.0 Anion Gap 10 BUN 21 H Creatinine 1.21 H Estim Creat Clear Calc 41.92 Est GFR (MDRD) Af Amer 59 L Est GFR (MDRD) Non-Af 49 L BUN/Creatinine Ratio 17.4 Glucose 284 H Lactic Acid 1.6 Calcium 8.2 L Urine Color Urine Clarity Urine pH Ur Specific [place] Urine Protein Urine Glucose (UA) Urine Ketones Urine Occult Blood Urine Nitrite Urine Bilirubin Urine Urobilinogen Ur Leukocyte Esterase Urine RBC Urine WBC Ur Squamous Epith Cells Urine Bacteria Fine Granular Casts Urine Mucus 07/12/18 16:30 WBC RBC Hgb Hct MCV MCH MCHC RDW RDW Differential Plt Count MPV Immature Gran % (Auto) Neut % (Auto) Lymph % (Auto) [place] % (Auto) Eos % (Auto) Baso % (Auto) Absolute Neuts (auto) Absolute Lymphs (auto) Total Counted Sodium Potassium Chloride Carbon Dioxide Anion Gap BUN Creatinine Estim Creat Clear Calc Est GFR (MDRD) Af Amer Est GFR (MDRD) Non-Af BUN/Creatinine Ratio Glucose Lactic Acid Calcium Urine Color Yellow Urine Clarity Sl. Cloudy Urine pH 5.0 Ur Specific [place] 1.020 Urine Protein 500 H Urine Glucose (UA) 1000 H Urine Ketones Negative Urine Occult Blood 150 H Urine Nitrite Negative Urine Bilirubin Negative Urine Urobilinogen 1 H Ur Leukocyte Esterase Negative Urine RBC 0-5 SEEN Urine WBC 0-5 SEEN Ur Squamous Epith Cells 5-10 SEEN Urine Bacteria 2+ Fine Granular Casts 0-5 SEEN Urine Mucus 0 SEEN Assessment/Plan 1. Acute hypoxic respiratory insufficiency on chronic hypoxic respiratory failure secondary to COPD exacerbation as a result of suspected community- acquired pneumonia with possible concurrent viral URI- Chest x-ray admission with lower lung infiltrates. Mild leukocytosis. Afebrile. Started on IV Levaquin in ER, continue. IV Solu-Medrol. Albuterol and DuoNeb aerosols. Continue supplement oxygen to maintain O2 at or above 90%. Patient will need walking pulse ox prior to discharge. She does have supplemental oxygen available at home. Check respiratory panel. Send sputum for culture. Urine for strep and Legionella. Check BNP, possible component of CHF? Echo in March 2018 with EF 65%. Patient does not currently follow-up with pulmonary medicine. Recommend outpatient follow-up with pulmonary medicine for repeat pulmonary function testing and ongoing management of COPD with chronic hypoxic respiratory failure. 2. Acute kidney injury-secondary to dehydration from poor oral intake. IV fluids. Trend BMP. 3. Hyponatremia, secondary to volume depletion-IV fluids. Trend BMP. 4. Tobacco dependence-continues to smoke up to 2 packs/day. Encourage smoking cessation. 5. Hypertension-stable, continue home amlodipine. Hold lisinopril given MARTHA. 6. Hyperlipidemia-continue statin. 7. Factor V deficiency-continue Eliquis regimen. 8. Type 2 diabetes [id number] ACHS with sliding scale insulin. C ontinue home metformin, Lantus, Jardiance regimen. 9. Depression-continue home sertraline regimen. DVT prophylaxis-Eliquis This patient was seen by Vani Sergio, MANAGER STYLE-C under the supervision of Dr. Armas. <Evangelina Armas - Last Filed: 07/12/18 20:53> History of Present Illness The patient is a 58 year old F [] Past Medical History Allergies No Known Allergies Allergy (Verified 07/12/18 15:28) - Physical Exam Vital Signs Temp Pulse Resp BP Pulse Ox 97.9 F 100 18 144/85 H 88 07/12/18 18:37 07/12/18 20:19 07/12/18 20:19 07/12/18 18:37 07/12/18 20:19 Oxygen Flow Rate (L/min) 4 Oxygen Delivery Method Room Air Weight: 58.967 kg Body Mass Index (BMI) 23.0 Microbiology Past 72 Hours 07/12/18 16:20 Influenza Types A,B Direct FA (RACHEL) - Final Mucosa - Nose Laboratory Tests Past 24 Hrs 07/12/18 07/12/18 07/12/18 15:30 15:30 15:49 WBC 12.9 H RBC 5.21 Hgb 13.8 Hct 41.5 MCV 79.7 L MCH 26.5 L MCHC 33.3 RDW 15.2 H RDW Differential 44.1 H Plt Count 205 MPV 10.3 Immature Gran % (Auto) 0.300 Neut % (Auto) 85.6 H Lymph % (Auto) 6.4 L [place] % (Auto) 7.5 Eos % (Auto) 0.1 Baso % (Auto) 0.1 Absolute Neuts (auto) 11.0 H Absolute Lymphs (auto) 0.83 Total Counted Not Reportable Sodium 125 L Potassium 3.9 Chloride 89 L Carbon Dioxide 26.0 Anion Gap 10 BUN 21 H Creatinine 1.21 H Estim Creat Clear Calc 41.92 Est GFR (MDRD) Af Amer 59 L Est GFR (MDRD) Non-Af 49 L BUN/Creatinine Ratio 17.4 Glucose 284 H Lactic Acid 1.6 Calcium 8.2 L B-Natriuretic Peptide Urine Color Urine Clarity Urine pH Ur Specific [place] Urine Protein Urine Glucose (UA) Urine Ketones Urine Occult Blood Urine Nitrite Urine Bilirubin Urine Urobilinogen Ur Leukocyte Esterase Urine RBC Urine WBC Ur Squamous Epith Cells Urine Bacteria Fine Granular Casts Urine Mucus 07/12/18 07/12/18 15:49 16:30 WBC RBC Hgb Hct MCV MCH MCHC RDW RDW Differential Plt Count MPV Immature Gran % (Auto) Neut % (Auto) Lymph % (Auto) [place] % (Auto) Eos % (Auto) Baso % (Auto) Absolute Neuts (auto) Absolute Lymphs (auto) Total Counted Sodium Potassium Chloride Carbon Dioxide Anion Gap BUN Creatinine Estim Creat Clear Calc Est GFR (MDRD) Af Amer Est GFR (MDRD) Non-Af BUN/Creatinine Ratio Glucose Lactic Acid Calcium B-Natriuretic Peptide 44.6 Urine Color Yellow Urine Clarity Sl. Cloudy Urine pH 5.0 Ur Specific [place] 1.020 Urine Protein 500 H Urine Glucose (UA) 1000 H Urine Ketones Negative Urine Occult Blood 150 H Urine Nitrite Negative Urine Bilirubin Negative Urine Urobilinogen 1 H Ur Leukocyte Esterase Negative Urine RBC 0-5 SEEN Urine WBC 0-5 SEEN Ur Squamous Epith Cells 5-10 SEEN Urine Bacteria 2+ Fine Granular Casts 0-5 SEEN Urine Mucus 0 SEEN Assessment/Plan This patient was seen in conjunction with Vani Hill NP. I have independently interviewed and examined the patient and reviewed pertinent historical, laboratory, and other data. Please refer to her note for patient's presentation, findings, and recommendations. 58-year-old female with past medical history of hypertension, type II DM, GERD, COPD, factor V [place], on Eliquis, hyperlipidemia, chronic smoker who comes in with progressive shortness of breath and cough as well as lethargy ongoing for about 5 days. Admits to sick contacts from her grandchildren. 1 of the grandchildren had croup, the other one had fever, upper respiratory infection but unknown etiology. She has been having progressive worsening shortness of breath, and lethargy. She denied any fever or chills. She has been producing initially clear sputum, now greenish in the ED. Denied any chest pain no dizziness or palpitations. She saw her primary care doctor and was found to have SPO2 of 81%, referred to the emergency department for further evaluation. Patient denies being on oxygen at home. She smokes about 2 packs of cigarettes a day. PMHx: as discussed per HPI PSHX: 3 sections FHX: No pertinent history SHX: , lives with her , smokes 2 packs of cigarettes a day, denies any use of alcohol or illicit drugs ROS: Per HPI except for ongoing fatigue, malaise, nasal congestion Physical Exam: Weight and vital show temperature of 98.9F, heart rate is 101, blood pressure of 98/61, respiratory rate was 24, she was saturating 81% on room air Gen: Looks in some discomfort, on 3 L of oxygen, not pale, not jaundiced, alert oriented x3 CVS:HS I +II, regular, tachycardic, no murmurs RESP: Diminished at lung bases, no wheezes heard GI: Bowel ounds present, soft, nontender, no palpable organs EXT:No edema Labs reviewed -RBC count is 12.9, hemoglobin 13.8, platelet is 205, sodium 125, potassium 3.9, chloride 89, bicarbonate 26, BUN 21, creatinine 1.21, glucose 284, BN pep 44.6, lactic acid 1.6 Influenza screen was negative ASSESSMENT: 1. Acute hypoxic respiratory failure 2. Possible community-acquired pneumonia vs atelectasis 3. Possible acute bronchitis 4. Leukocytosis 5. Hyponatremia 6. Acute kidney injury, previous creatinine was normal at 0.74 7. Hypertension 8. Type II DM 9. Nicotine dependence Plan: Admit to MedSurg floor, continue on oxygen therapy, Doubt pneumonia, started on IV Levaquin in the ED, will continue for now Doubt COPD exacerbation Droplet precautions, respiratory panel stat Repeat chest x-ray in the morning, DC antibiotics if patient does not have pneumonia We will not continue on IV steroids as no wheezes on exam; may resume steroids if patient has worsening wheezes Encourage use of incentive spirometer Breathing treatments as needed Continue IV fluids Repeat blood work in a.m. Continue on home blood pressure medications Continue on home insulin with insulin sliding scale with Accu-Cheks Advised to stop smoking, Nicotine patches; refused nicotine gum Code Visit Inpatient E&M: 61674 Init Hosp L3
--- NOTE | 2018-07-12 17:52 | ED.DCSUM_ITS ---
- ER Visit Summary Date of Service: 07/12/18 Chief Complaint: Cough and shortness of breath History of Present Illness: The patient is a [address] denton. She reports that she has cough and shortness of breath began approximate 5 days ago. She reports that the shortness of breath is mild at rest and severe while she is coughing. States is unchanged with exertion. Is relieved by oxygen and albuterol. Patient complains of subjective fever and chills. She reports that her cough is productive clear sputum without blood. She denies any chest pain. She has been nauseated. She denies abdominal pain or vomiting. She has dysuria that began today. Patient reports that she saw Dr. denton in the office and got a steroid shot IM before coming in today. She is also given prescription for nebulizer. She has 2 L of oxygen that she uses at night as needed. Physical Examination: Vitals: 98.9, 98/61, 101, 24, 81% on room air which is hypoxic.. General: Well-nourished and well-developed. Head: Normocephalic atraumatic. Neck: Supple, no lymphadenopathy. No JVD. Nontender. Cardiovascular: Regular rate and rhythm. No murmurs. Respiratory: No respiratory distress. Clear to auscultation bilaterally. Abdominal: Soft, nontender, nondistended, normal bowel sounds. No guarding, rebound, or peritoneal signs. Back: Nontender. Extremities: Nontender, no edema. Prominent clubbing. Skin: Normal color, no rash. Neurologic: Alert and oriented ?3. Cranial nerves II through XII are intact. Normal strength and sensation. Psych: Normal affect. Test Results: EKG is sinus at [address] changes. CBC is more for white count 12.9 with 86 7 neutrophils 6 lymphs lites. Chem-7 is more for sodium 125, chloride of 89, BUN 21, creatinine 1.21, glucose 284, calcium 8.2. Lactic acid is 1.6. UA is negative. Chest x-ray shows lower lung infiltrates. Emergency Department Course and Treatment: Patient was treated oxygen and albuterol/Atrovent aerosols. She was given Solu-Medrol IV. She was given Levaquin IV. Her pulse ox is in the low 90s on oxygen. She looks much improved. Treatment Plan: Patient will be discussed the hospitalist admitted for further evaluation and treatment. Disposition: Admitted in improved condition. Impression: 1. Pneumonia, community acquired. 2. Hypoxia. 3. Coagulopathy on Eliquis. This note was generated with [employer] dictation software. It may contain incorrect words, spelling, and punctuation that were not noted in review of the chart prior to signing
[2018-07-12 19:03] LABS: BNP,B-Type NATRIURETIC PEPTIDE 44.6 pg/mL (0-100)
[2018-07-12] MEDS: Budesonide Respules 0.5 MG/2 ML AMPUL.NEB. INHALATION (20:19)
[2018-07-12] MEDS: Albuterol 2.5 MG/3 ML VIAL.NEB. INHALATION (20:19)
--- NOTE | 2018-07-12 20:33 | CPS ---
pt placed on 2 lpm O2
[2018-07-12] MEDS: APIXABAN 2.5 MG TABLET PO (21:28)
[2018-07-12] MEDS: Atorvastatin Calcium 20 MG Tablet PO (21:28)
[2018-07-12] MEDS: Glucerna Shake 120 ML LIQUID PO (21:28)
[2018-07-12] MEDS: Fluticasone 0.05% 1 SPRAY NASAL.SRY NASAL (21:28)
[2018-07-12] MEDS: Insulin Lispro 100 UNIT/ML INSULN.PEN 16 UNIT SC (21:44)
[2018-07-12 21:51] LABS: Bedside Glucose > 500 mg/dL (70-110)
[2018-07-12 21:58] LABS: Glucose 554 mg/dL (74-106)
[2018-07-12 23:27] LABS: Bedside Glucose > 500 mg/dL (70-110)
[2018-07-13] VITALS (15 sets, daily range): BP systolic 112–140; BP diastolic 57–80; PULSE 82–110; RESP 18–22; TEMP 36.6–37.1; O2SAT 91–94
[2018-07-13] MEDS: 0.9% NaCl Peripheral Flush Adult/Peds IV ×3 (00:05→22:24)
[2018-07-13] MEDS: 0.9% Normal Saline 1,000 ML 150 ML IV ×2 (00:05→06:42)
[2018-07-13 00:20] LABS: Glucose 456 mg/dL (74-106)
[2018-07-13 05:52] LABS: Absolute Lymphocyte Count 0.49 X10^3/ul (0.83-4.51); Absolute Neutrophil Count 10.8 X10^3/uL (2.0-7.7); Basophil# 0.02 X10^3/uL; Basophil% 0.2 % (0-1); Hematocrit 38.2 % (37-47); Hemoglobin 12.6 g/dl (12.0-15.0); Lymphocyte # 0.49 X10^3/ul (4.0); Lymphocyte % 4.2 % (19-41); Mean Corpuscular Hgb 26.4 pg (27.0-32.0); Mean Corpuscular Volume 80.1 fL (81-99); Mean Platelet Vol. 10.5 fl (6.2-12.0); Monocyte% 2.6 % (0-10); Neutrophil # 10.79 X10^3/uL (2.7-7.7); Neutrophil % 92.7 % (47-70); Platelet Count 205 K/mm3 (150-450); RBC Distribution Width SD 43.3 fl (35.1-43.9); Red Blood Count 4.77 M/mm3 (4.2-5.4); White Blood Count 11.6 K/mm3 (4.4-11.0)
[2018-07-13 05:53] LABS: Differential Indicated SCAN CRITERIA MET; POSITIVE COUNT NO; POSITIVE DIFFERENTIAL YES; POSITIVE MORPHOLOGY NO
--- NOTE | 2018-07-13 05:55 | RAD_ITS ---
STUDY: X-RAY CHEST REASON FOR EXAM: Female, 58 years old. Cough. TECHNIQUE: PA and lateral views of the chest. COMPARISON: Comparison is made with prior study dated July 12, 2018. FINDINGS: EKG electrodes are seen. Increased markings at the lung bases. This has progressed as compared to prior study. Follow-up is recommended. Hyperinflation. There is no demonstrated pleural abnormality. Normal size heart. Normal mediastinum and eben. Normal visualized pulmonary arteries. Normal visualized aortic arch and descending thoracic aorta. Normal visualized thoracic spine. Normal visualized ribs, clavicles, and shoulders. There is no demonstrated abnormality of the visualized soft tissue structures of the upper abdomen. RAD/Chest PA and Lateral IMPRESSION: Progressive increased markings at the lung bases suggestive of early infiltrates. Follow-up is recommended. Electronically Signed: Harsh Almeida MD at 14:36 EST , Service support ,
[2018-07-13 06:14] LABS: Anion Gap 13 (5-15); BUN 20 mg/dL (7-18); Calcium,Total 8.2 mg/dL (8.5-10.1); Chloride 97 mmol/L (98-107); EST Glomerular Filtration Rate 61 mL/min (>60); Est Glom Filt Rate - Afr Amer 73 mL/min (>60); Estimated Creatinine Clearance 50.73 ml/min; Glucose 360 mg/dL (74-106); Potassium 4.3 mmol/L (3.5-5.1); Sodium Level 131 mmol/L (136-145)
[2018-07-13] MEDS: Insulin Lispro 100 UNIT/ML INSULN.PEN SQ ×4 (06:41→22:19)
[2018-07-13 06:47] LABS: Bedside Glucose 394 mg/dL (70-110)
[2018-07-13] MEDS: Budesonide Respules 0.5 MG/2 ML AMPUL.NEB. INHALATION ×2 (07:17→18:55)
[2018-07-13] MEDS: Albuterol 2.5 MG/3 ML VIAL.NEB. INHALATION ×3 (07:18→18:55)
--- NOTE | 2018-07-13 09:25 | CASEMGMT ---
FARHANA MENDIETA Face to Face with patient for initial transition planning/care coordination assessment. RN ANAM introduced self and role at [facility]. Patient lying in bed, alert and oriented. Patient willing to participate in assessment and is able to answer all questions appropriately. Care providers, pharmacy, and demographics verified. Patient wishes to discharge home, denies need for home health at this time. Patient states she has no further needs or concerns at this time. CM to follow for discharge planning needs that may arise. PCP: Shashi Specialists: None Preferred Pharmacy: [facility] Insurance: MMO Prescription Benefit: Yes Living Will/HPOA: yes but is old and states sister in law is HPOA LNOK: and children Living Arrangements: Patient lives with in 1 story home with 3 steps to enter the home. Patient independent at home. Transportation: self/ DME/HHC: Patient states that she has oxygen at home at night 2lpm that was setup with [facility] but believes was transferred to [place]. Dr Danielle just gave patient script for nebulizer machine that he is setting up. Updated patient that [facility] is in-network with insurance and could setup nebulizer, location information given for [facility]. Disposition Plan: Patient to discharge home with family support and follow-up plans in place. Will monitor for need for continuous home oxygen. Alanna PITTMAN, RN, CM
[2018-07-13] MEDS: Glucerna Shake 120 ML LIQUID PO ×4 (10:30→22:17)
[2018-07-13] MEDS: APIXABAN 2.5 MG TABLET PO ×2 (10:30→22:18)
[2018-07-13] MEDS: Sertraline 50 MG Tablet PO (10:30)
[2018-07-13] MEDS: amLODIPine 2.5 MG Tablet PO (10:30)
[2018-07-13] MEDS: Fluticasone 0.05% 1 SPRAY NASAL.SRY NASAL ×2 (10:31→22:17)
[2018-07-13 11:16] LABS: Bedside Glucose 280 mg/dL (70-110)
[2018-07-13] MEDS: Oseltamivir Phosphate 75 MG Capsule PO (14:49)
--- NOTE | 2018-07-13 15:10 | PCM.PROGNOTE ---
<Vani Hill - Last Filed: 07/13/18 15:16> Subjective: Patient seen and examined. Reports shortness of breath and cough is improved. Denies fever, chills. - Physical Exam General: Alert, Oriented x3, Cooperative HEENT: Atraumatic, PERRLA, EOMI, Normocephalic Neck: Supple, No JVD, Negative Carotid Bruits Lungs: Diminished, Wheezes Cardiovascular: Regular Rhythm, Normal S1, Normal S2, No murmurs, Tachycardic Abdomen: Bowel Sounds Present, Soft, Non Tender, Non-Distended Extremities: No clubbing, No cyanosis, No edema, Capillary Refill Less than 3 Seconds Skin: No rashes, No breakdown Musculoskeletal: No Tenderness to Palpation of Joints or Extremities Neurological: Cranial nerves II-XII grossly intact, Neuro grossly intact Psych/Mental Status: Normal Affect, Appropriate Vital Signs Temp Pulse Resp BP Pulse Ox 97.9 F 90 18 112/69 93 07/13/18 14:00 07/13/18 14:00 07/13/18 14:00 07/13/18 14:00 07/13/18 14:00 Oxygen Flow Rate (L/min) 3 Oxygen Delivery Method Nasal Cannula Weight: 132 lb 0.91 oz Body Mass Index (BMI) 23.0 Intake and Output for Last 24 Hours 07/11/18 07/12/18 07/13/18 23:59 23:59 23:59 Intake Total 4139 / 4139 Balance 4139 / 4139 Microbiology Past 72 Hours 07/12/18 16:30 Respiratory Panel (PCR) - Final Mucosa - Nasopharyngeal Influenza A (Subtype H3) 07/12/18 16:20 Influenza Types A,B Direct FA (RACHEL) - Final Mucosa - Nose Laboratory Tests Past 24 Hrs 07/12/18 07/12/18 07/12/18 15:30 15:30 15:49 WBC 12.9 H RBC 5.21 Hgb 13.8 Hct 41.5 MCV 79.7 L MCH 26.5 L MCHC 33.3 RDW 15.2 H RDW Differential 44.1 H Plt Count 205 MPV 10.3 Immature Gran % (Auto) 0.300 Neut % (Auto) 85.6 H Lymph % (Auto) 6.4 L [place] % (Auto) 7.5 Eos % (Auto) 0.1 Baso % (Auto) 0.1 Absolute Neuts (auto) 11.0 H Absolute Lymphs (auto) 0.83 Total Counted Not Reportable Differential Comment Sodium 125 L Potassium 3.9 Chloride 89 L Carbon Dioxide 26.0 Anion Gap 10 BUN 21 H Creatinine 1.21 H Estim Creat Clear Calc 41.92 Est GFR (MDRD) Af Amer 59 L Est GFR (MDRD) Non-Af 49 L BUN/Creatinine Ratio 17.4 Glucose 284 H Lactic Acid 1.6 Calcium 8.2 L B-Natriuretic Peptide Urine Color Urine Clarity Urine pH Ur Specific [place] Urine Protein Urine Glucose (UA) Urine Ketones Urine Occult Blood Urine Nitrite Urine Bilirubin Urine Urobilinogen Ur Leukocyte Esterase Urine RBC Urine WBC Ur Squamous Epith Cells Urine Bacteria Fine Granular Casts Urine Mucus 07/12/18 07/12/18 07/12/18 15:49 16:30 21:32 WBC RBC Hgb Hct MCV MCH MCHC RDW RDW Differential Plt Count MPV Immature Gran % (Auto) Neut % (Auto) Lymph % (Auto) [place] % (Auto) Eos % (Auto) Baso % (Auto) Absolute Neuts (auto) Absolute Lymphs (auto) Total Counted Differential Comment Sodium Potassium Chloride Carbon Dioxide Anion Gap BUN Creatinine Estim Creat Clear Calc Est GFR (MDRD) Af Amer Est GFR (MDRD) Non-Af BUN/Creatinine Ratio Glucose 554 H* Lactic Acid Calcium B-Natriuretic Peptide 44.6 Urine Color Yellow Urine Clarity Sl. Cloudy Urine pH 5.0 Ur Specific [place] 1.020 Urine Protein 500 H Urine Glucose (UA) 1000 H Urine Ketones Negative Urine Occult Blood 150 H Urine Nitrite Negative Urine Bilirubin Negative Urine Urobilinogen 1 H Ur Leukocyte Esterase Negative Urine RBC 0-5 SEEN Urine WBC 0-5 SEEN Ur Squamous Epith Cells 5-10 SEEN Urine Bacteria 2+ Fine Granular Casts 0-5 SEEN Urine Mucus 0 SEEN 07/12/18 07/13/18 07/13/18 23:50 05:24 05:24 WBC 11.6 H RBC 4.77 Hgb 12.6 Hct 38.2 MCV 80.1 L MCH 26.4 L MCHC 33.0 RDW 15.0 H RDW Differential 43.3 Plt Count 205 MPV 10.5 Immature Gran % (Auto) 0.300 Neut % (Auto) 92.7 H Lymph % (Auto) 4.2 L [place] % (Auto) 2.6 Eos % (Auto) 0.0 Baso % (Auto) 0.2 Absolute Neuts (auto) 10.8 H Absolute Lymphs (auto) 0.49 L Total Counted Not Reportable Differential Comment Sodium 131 L Potassium 4.3 Chloride 97 L Carbon Dioxide 21.0 Anion Gap 13 BUN 20 H Creatinine 1.00 Estim Creat Clear Calc 50.73 Est GFR (MDRD) Af Amer 73 Est GFR (MDRD) Non-Af 61 BUN/Creatinine Ratio 20.0 Glucose 456 H* 360 H Lactic Acid Calcium 8.2 L B-Natriuretic Peptide Urine Color Urine Clarity Urine pH Ur Specific [place] Urine Protein Urine Glucose (UA) Urine Ketones Urine Occult Blood Urine Nitrite Urine Bilirubin Urine Urobilinogen Ur Leukocyte Esterase Urine RBC Urine WBC Ur Squamous Epith Cells Urine Bacteria Fine Granular Casts Urine Mucus POC Glucose 07/13/18 07/13/18 07/12/18 11:06 06:39 23:22 POC Glucose 280 H 394 H > 500 H* 07/12/18 21:23 POC Glucose > 500 H* Medical Necessity - Tobacco Use Smoking Status: Current every day smoker Tobacco Use: Cigarettes Assessment/Plan 1. Acute hypoxic respiratory insufficiency on chronic hypoxic respiratory failure secondary to COPD exacerbation as a result of influenza A as well as suspected community-acquired pneumonia- Chest x-ray admission with lower lung infiltrates. Mild leukocytosis. Afebrile. Continue IV Levaquin in ER. Albuterol and DuoNeb aerosols. Continue supplement oxygen to maintain O2 at or above 90%. Patient will need walking pulse ox prior to discharge. She does have supplemental oxygen available at home. Patient does not currently follow-up with pulmonary medicine. Recommend outpatient follow-up with pulmonary medicine for repeat pulmonary function testing and ongoing management of COPD with chronic hypoxic respiratory failure. Tamiflu 30 mg twice daily added. Will add prednisone 40 mg x 5 days as well. 2. Acute kidney injury-secondary to dehydration from poor oral intake. IV fluids. Trend BMP. MARTHA resolved. 3. Hyponatremia, secondary to volume depletion-IV fluids. Trend BMP. Sodium improving. 4. Tobacco dependence-continues to smoke up to 2 packs/day. Encourage smoking cessation. 5. Hypertension-stable, continue home amlodipine. Hold lisinopril given MARTHA. 6. Hyperlipidemia-continue statin. 7. Factor V deficiency-continue Eliquis regimen. 8. Type 2 diabetes [id number] ACHS with sliding scale insulin. Continue home metformin, Lantus, Jardiance regimen. 9. Depression-continue home sertraline regimen. DVT prophylaxis-Eliquis This patient was seen by Vani Hill NP-C under the supervision of Dr. Lowe. <ChrissyKeesha E - Last Filed: 07/13/18 15:37> - Physical Exam Vital Signs Temp Pulse Resp BP Pulse Ox 97.9 F 84 20 H 112/69 93 07/13/18 14:00 07/13/18 14:00 07/13/18 14:00 07/13/18 14:00 07/13/18 14:00 Oxygen Flow Rate (L/min) 4 Oxygen Delivery Method Nasal Cannula Weight: 132 lb 0.91 oz Body Mass Index (BMI) 23.0 Intake and Output for Last 24 Hours 07/11/18 07/12/18 07/13/18 23:59 23:59 23:59 Intake Total 4139 / 4139 Balance 4139 / 4139 Microbiology Past 72 Hours 07/12/18 16:30 Respiratory Panel (PCR) - Final Mucosa - Nasopharyngeal Influenza A (Subtype H3) 07/12/18 16:20 Influenza Types A,B Direct FA (RACHEL) - Final Mucosa - Nose Laboratory Tests Past 24 Hrs 07/12/18 07/12/18 07/12/18 15:30 15:30 15:49 WBC 12.9 H RBC 5.21 Hgb 13.8 Hct 41.5 MCV 79.7 L MCH 26.5 L MCHC 33.3 RDW 15.2 H RDW Differential 44.1 H Plt Count 205 MPV 10.3 Immature Gran % (Auto) 0.300 Neut % (Auto) 85.6 H Lymph % (Auto) 6.4 L [place] % (Auto) 7.5 Eos % (Auto) 0.1 Baso % (Auto) 0.1 Absolute Neuts (auto) 11.0 H Absolute Lymphs (auto) 0.83 Total Counted Not Reportable Differential Comment Sodium 125 L Potassium 3.9 Chloride 89 L Carbon Dioxide 26.0 Anion Gap 10 BUN 21 H Creatinine 1.21 H Estim Creat Clear Calc 41.92 Est GFR (MDRD) Af Amer 59 L Est GFR (MDRD) Non-Af 49 L BUN/Creatinine Ratio 17.4 Glucose 284 H Lactic Acid 1.6 Calcium 8.2 L B-Natriuretic Peptide Urine Color Urine Clarity Urine pH Ur Specific [place] Urine Protein Urine Glucose (UA) Urine Ketones Urine Occult Blood Urine Nitrite Urine Bilirubin Urine Urobilinogen Ur Leukocyte Esterase Urine RBC Urine WBC Ur Squamous Epith Cells Urine Bacteria Fine Granular Casts Urine Mucus 07/12/18 07/12/18 07/12/18 15:49 16:30 21:32 WBC RBC Hgb Hct MCV MCH MCHC RDW RDW Differential Plt Count MPV Immature Gran % (Auto) Neut % (Auto) Lymph % (Auto) [place] % (Auto) Eos % (Auto) Baso % (Auto) Absolute Neuts (auto) Absolute Lymphs (auto) Total Counted Differential Comment Sodium Potassium Chloride Carbon Dioxide Anion Gap BUN Creatinine Estim Creat Clear Calc Est GFR (MDRD) Af Amer Est GFR (MDRD) Non-Af BUN/Creatinine Ratio Glucose 554 H* Lactic Acid Calcium B-Natriuretic Peptide 44.6 Urine Color Yellow Urine Clarity Sl. Cloudy Urine pH 5.0 Ur Specific [place] 1.020 Urine Protein 500 H Urine Glucose (UA) 1000 H Urine Ketones Negative Urine Occult Blood 150 H Urine Nitrite Negative Urine Bilirubin Negative Urine Urobilinogen 1 H Ur Leukocyte Esterase Negative Urine RBC 0-5 SEEN Urine WBC 0-5 SEEN Ur Squamous Epith Cells 5-10 SEEN Urine Bacteria 2+ Fine Granular Casts 0-5 SEEN Urine Mucus 0 SEEN 07/12/18 07/13/18 07/13/18 23:50 05:24 05:24 WBC 11.6 H RBC 4.77 Hgb 12.6 Hct 38.2 MCV 80.1 L MCH 26.4 L MCHC 33.0 RDW 15.0 H RDW Differential 43.3 Plt Count 205 MPV 10.5 Immature Gran % (Auto) 0.300 Neut % (Auto) 92.7 H Lymph % (Auto) 4.2 L [place] % (Auto) 2.6 Eos % (Auto) 0.0 Baso % (Auto) 0.2 Absolute Neuts (auto) 10.8 H Absolute Lymphs (auto) 0.49 L Total Counted Not Reportable Differential Comment Sodium 131 L Potassium 4.3 Chloride 97 L Carbon Dioxide 21.0 Anion Gap 13 BUN 20 H Creatinine 1.00 Estim Creat Clear Calc 50.73 Est GFR (MDRD) Af Amer 73 Est GFR (MDRD) Non-Af 61 BUN/Creatinine Ratio 20.0 Glucose 456 H* 360 H Lactic Acid Calcium 8.2 L B-Natriuretic Peptide Urine Color Urine Clarity Urine pH Ur Specific [place] Urine Protein Urine Glucose (UA) Urine Ketones Urine Occult Blood Urine Nitrite Urine Bilirubin Urine Urobilinogen Ur Leukocyte Esterase Urine RBC Urine WBC Ur Squamous Epith Cells Urine Bacteria Fine Granular Casts Urine Mucus POC Glucose 07/13/18 07/13/18 07/12/18 11:06 06:39 23:22 POC Glucose 280 H 394 H > 500 H* 07/12/18 21:23 POC Glucose > 500 H* Assessment/Plan Hospitalist note: I am seeing this patient in conjunction with Vani Hill. I independently seen and examined the patient. Progress note above, laboratory data and imaging studies reviewed and I concur with the above treatment plan. Patient seen and examined today. Reported some improvement in her shortness of breath, still having cough. Denies fever chills. She has been afebrile, blood pressure and heart rate are stable, pulse ox is 92% on 3 L. - Physical Exam General: Alert, Oriented x3, Cooperative, minimally short of breath. HEENT: Atraumatic, PERRLA, EOMI. Neck: Supple, No JVD, Negative Carotid Bruits, Trachea Midline, Thyroid Normal. Lungs: Decreased breath sounds bilateral, occasional wheezes, No rhonchi, No rales. Cardiovascular: Regular rate, Regular Rhythm, Normal S1, Normal S2, PMI Normal. Abdomen: Bowel Sounds Present, Soft, Non Tender, Non-Distended, No Hepato-splenomegaly. Extremities: No clubbing, No cyanosis, No edema Skin: No rashes, No breakdown Neurological: Neuro grossly intact Assessment and plan: #1 acute hypoxic respiratory insufficiency on chronic hypoxic respiratory failure: Multifactorial secondary to COPD exacerbation, influenza A and suspected pneumonia. She is on IV Levaquin and bronchodilators as well as p.o. steroids. She reported mild improvement of her symptoms. She remains on oxygen at 3 L, other vital signs are stable. She is on Tamiflu for influenza A. Plan to continue same treatment, possible DC home tomorrow. #2 COPD exacerbation: She is on IV steroids, antibiotics and bronchodilators. Plan as above. #3 suspected community acquired pneumonia: She is on IV Levaquin. Chest x-ray reviewed. She has been afebrile, white blood cell count is trending down. Blood and urine cultures are pending. #4 acute kidney injury/hyponatremia: Most recent creatinine was 0.74, admission creatinine was 1.21 she has been on IV fluids, both serum creatinine and sodium are improving. #5 other chronic medical problems: Stable, continue current medications as above. This note was generated with [employer] dictation software. It may contain incorrect words, spelling, and punctuation that were not noted in checking the note before signing. Code Visit Inpatient E&M: 79572 Subs Hosp L2
[2018-07-13] MEDS: predniSONE 20 MG Tablet 40 MG PO (15:45)
--- NOTE | 2018-07-13 15:57 | CHAPLAIN ---
Type of Pastoral Visit _x__ Initial Visit ___ Follow-up Visit ___ On-call Visit ___ General Patient Visit ___ Spiritual Assessment ___ Family Conference ___ Bereavement ___ Rapid Response ___ Code Blue ___ Other (describe below) Pastoral Care Referral From _x__ Patient ___ Family ___ Nurse ___ Physician ___ Aviation Operations Specialist ___ Public Relations Officer ___ Other (describe below) Sacrament/Intervention _x__ Active listening ___ Anointing ___ Gnosticist ___ Bereavement ___ Communion ___ Namita exploration ___ _x__ Life review _x__ Prayer ___ Reconciliation ___ Sacrament of Sick ___ Supportive presence ___ Wedding ___ Other (describe below) Pastoral Comments
[2018-07-13 16:41] LABS: Bedside Glucose 312 mg/dL (70-110)
[2018-07-13] MEDS: MELATONIN 10 MG TABLET 5 MG PO (22:17)
[2018-07-13] MEDS: Oseltamivir Phosphate 30 MG Capsule PO (22:18)
[2018-07-13] MEDS: Atorvastatin Calcium 20 MG Tablet PO (22:18)
[2018-07-13 22:31] LABS: Bedside Glucose 332 mg/dL (70-110)
[2018-07-14] VITALS (9 sets, daily range): BP systolic 128–144; BP diastolic 69–79; PULSE 77–98; RESP 18–20; TEMP 36.9–38; O2SAT 90–95
[2018-07-14 06:11] LABS: Hematocrit 37.7 % (37-47); Hemoglobin 12.5 g/dl (12.0-15.0); Mean Corp Hgb Conc 33.2 g/gl (32-36); Mean Corpuscular Hgb 26.4 pg (27.0-32.0); Mean Corpuscular Volume 79.7 fL (81-99); Platelet Count 248 K/mm3 (150-450); RBC Distribution Width CV 15.2 % (11.6-14.6); RBC Distribution Width SD 44.6 fl (35.1-43.9); Red Blood Count 4.73 M/mm3 (4.2-5.4); White Blood Count 16.7 K/mm3 (4.4-11.0)
[2018-07-14 06:20] LABS: Scan Indicated on CBC? Y/N NO
[2018-07-14 06:39] LABS: Anion Gap 8 (5-15); BUN 23 mg/dL (7-18); BUN/Creat Ratio 27.7 RATIO (10-20); Chloride 102 mmol/L (98-107); Creatinine, Serum 0.83 mg/dL (0.55-1.02); EST Glomerular Filtration Rate 75 mL/min (>60); Est Glom Filt Rate - Afr Amer 91 mL/min (>60); Estimated Creatinine Clearance 61.12 ml/min; Glucose 202 mg/dL (74-106); Potassium 4.3 mmol/L (3.5-5.1); Sodium Level 135 mmol/L (136-145)
[2018-07-14] MEDS: Insulin Lispro 100 UNIT/ML INSULN.PEN SQ ×2 (06:44→11:47)
[2018-07-14 06:52] LABS: Bedside Glucose 176 mg/dL (70-110)
[2018-07-14] MEDS: Albuterol 2.5 MG/3 ML VIAL.NEB. INHALATION (07:01)
[2018-07-14] MEDS: Budesonide Respules 0.5 MG/2 ML AMPUL.NEB. INHALATION (07:01)
[2018-07-14] MEDS: predniSONE 20 MG Tablet 40 MG PO (07:51)
[2018-07-14] MEDS: Fluticasone 0.05% 1 SPRAY NASAL.SRY NASAL (09:54)
[2018-07-14] MEDS: amLODIPine 2.5 MG Tablet PO (09:55)
[2018-07-14] MEDS: Oseltamivir Phosphate 30 MG Capsule PO (09:55)
[2018-07-14] MEDS: APIXABAN 2.5 MG TABLET PO (09:55)
[2018-07-14] MEDS: Sertraline 50 MG Tablet PO (09:56)
--- NOTE | 2018-07-14 11:23 | DCINST_ITS ---
- Discharge Diagnoses Current Active Problems: Current Active and Chronic Problems HTN (hypertension) (Chronic) Depression (Chronic) Tobacco dependence (Chronic) HLD (hyperlipidemia) (Chronic) You will use the following diet at home:: Other - Carb control. Discharge Activity: Return to Normal Activity, - - Use oxygen as needed to maintain O2 at or above 90%. Call your doctor if you observe: Fever of 101 or Higher, Shortness of breath, Dizziness, Fainting spells Allergies/Adverse Reactions: Allergies No Known Allergies Allergy (Verified 07/12/18 15:28) Medications to take at Discharge Apixaban [Eliquis] 1 tab PO BID 03/10/17 Amlodipine [Norvasc] 2.5 mg PO DAILY 10/19/17 Budesonide/Formoterol 160/4.5 [Symbicort 160/4.5 Mcg Inhaler (SP)] 2 puff IH BID 10/19/17 Atorvastatin Calcium [Lipitor] 20 mg PO QHS 07/12/18 Empagliflozin [Jardiance] 25 mg PO DAILY 07/12/18 Furosemide [Lasix] 40 mg PO DAILY 07/12/18 Insulin Glargine [Lantus SoloStar Pen] 25 units SQ QHS 07/12/18 Lisinopril 5 mg PO DAILY 07/12/18 Metformin(XR) [Glucophage Xr] 1,000 mg PO DAILY 07/12/18 Metformin(XR) [Glucophage Xr] 500 mg PO QHS 07/12/18 Multivitamin [Multiple Vitamins] 1 each PO DAILY 07/12/18 Potassium Chloride [K-Dur] 20 meq PO DAILY 07/12/18 Sertraline HCl 50 mg PO DAILY 07/12/18 Albuterol Aerosols [Ventolin Aerosols] 2.5 mg INHALATION Q2H PRN #90 vial.neb. 07/14/18 Levofloxacin [Levaquin] 750 mg PO DAILY #5 tablet 07/14/18 Oseltamivir Phosphate [Tamiflu] 30 mg PO BID #7 capsule 07/14/18 predniSONE tablet 40 mg PO DAILY@0800 #6 tablet 07/14/18 The following prescriptions were given: Albuterol Aerosols [Ventolin Aerosols] 2.5 mg INHALATION Q2H PRN #90 vial.neb. PRN Reason: Shortness Of Breath Levofloxacin [Levaquin] 750 mg PO DAILY #5 tablet predniSONE tablet 40 mg PO DAILY@0800 #6 tablet Oseltamivir Phosphate [Tamiflu] 30 mg PO BID #7 capsule Primary Care Physician: Rosemary Danielle DO [Primary Care Provider] - Please follow up with your Primary Care Physician in: 1 Week Test Results: Test results from this visit will be discussed in further detail at your follow- up appointment, if applicable. Proposed Discharge Date: 07/14/18
--- NOTE | 2018-07-14 11:28 | DS.PCM_ITS ---
<Vani Hill - Last Filed: 07/14/18 11:35> Discharge Date and Diagnosis Date of Admission: 07/12/18 Date of Discharge: 07/14/18 - Primary Discharge Diagnosis 1. Acute hypoxic respiratory insufficiency on chronic hypoxic respiratory failure secondary to COPD exacerbation as a result of influenza A as well as suspected community-acquired pneumonia 2. Acute kidney injury 3. Hyponatremia, secondary to volume depletion 4. Tobacco dependence 5. Hypertension 6. Hyperlipidemia 7. Factor V deficiency 8. Type 2 diabetes mellitus 9. Depression - Secondary Discharge Diagnosis Chronic Problems DM type 2 (diabetes mellitus, type 2) (Chronic) GERD (gastroesophageal reflux disease) (Chronic) COPD (chronic obstructive pulmonary disease) (Chronic) Factor V Leiden (Chronic) HTN (hypertension) (Chronic) Depression (Chronic) Tobacco dependence (Chronic) HLD (hyperlipidemia) (Chronic) Hospital Course and Treatment Imaging Results: Diagnostic Data Chest X-Ray 07/13/18 05:55 IMPRESSION: Progressive increased markings at the lung bases suggestive of early infiltrates. Follow-up is recommended. Electronically Signed: Harsh Almeida MD at 14:36 EST , Service support , Operations: None Procedures: None Summary of Care Provided: The patient is a 58 year old F admitted 07/12/18 due to hypoxia, shortness of breath, cough. 1. Acute hypoxic respiratory insufficiency on chronic hypoxic respiratory failu re secondary to COPD exacerbation as a result of influenza A as well as suspected community-acquired pneumonia- Chest x-ray admission with lower lung infiltrates. Breathing improved. Patient has supplemental oxygen available at home. Walking pulse ox prior to discharge demonstrated stable oxygen on room air with ambulation and at rest. Patient can continue supplement oxygen as needed to maintain O2 at or above 90%. Discharge on oral Levaquin X5 days. Patient recently obtained a nebulizer order from primary care physician. Given albuterol nebulizer solution for as needed use for shortness of breath. Continue Tamiflu course. Continue prednisone 40 mg x 5 days. Recommend follow- up with pulmonary medicine at discharge given no recent pulmonary function testing. Follow-up with primary care physician in 1 week. 2. Acute kidney injury-secondary to dehydration from poor oral intake. MARTHA resolved. 3. Hyponatremia, secondary to volume depletion-Resolved. 4. Tobacco dependence-continues to smoke up to 2 packs/day. Encouraged smoking cessation. 5. Hypertension-stable, continue home amlodipine, lisinopril regimen. 6. Hyperlipidemia-continue statin. 7. Factor V deficiency-continue Eliquis regimen. 8. Type 2 diabetes mellitus- Continue home metformin, Lantus, Jardiance, metformin regimen. 9. Depression-continue home sertraline regimen. General: Alert, Oriented x3, Cooperative HEENT: Atraumatic, PERRLA, EOMI, Normocephalic Neck: Supple, No JVD, Negative Carotid Bruits Lungs: Diminished, Wheezes Cardiovascular: Regular Rhythm, regular rate, normal S1, Normal S2, No murmurs Abdomen: Bowel Sounds Present, Soft, Non Tender, Non-Distended Extremities: No clubbing, No cyanosis, No edema, Capillary Refill Less than 3 Seconds Skin: No rashes, No breakdown Musculoskeletal: No Tenderness to Palpation of Joints or Extremities Neurological: Cranial nerves II-XII grossly intact, Neuro grossly intact Psych/Mental Status: Normal Affect, Appropriate Patient seen and examined prior to discharge. Physical assessment as noted above. Patient is stable for discharge with follow up recommendations as noted above. This patient was seen by NESTOR Ahumada under the supervision of Dr. Lowe. - Physical Exam Vital Signs Temp Pulse Resp BP Pulse Ox 98.5 F 82 18 144/79 H 93 07/14/18 07:49 07/14/18 07:49 07/14/18 07:49 07/14/18 07:49 07/14/18 09:21 Oxygen Flow Rate (L/min) 1 Oxygen Delivery Method Nasal Cannula Weight: 131 lb 6.328 oz Body Mass Index (BMI) 23.0 Intake and Output for Last 24 Hours 07/12/18 07/13/18 07/14/18 23:59 23:59 23:59 Intake Total 5039 / 5039 1130 / 1130 Balance 5039 / 5039 1130 / 1130 Microbiology Past 72 Hours 07/12/18 16:30 Urine Culture - Final Urine, Clean Catch Mixed Gram Positive Organisms 07/12/18 16:30 Respiratory Panel (PCR) - Final Mucosa - Nasopharyngeal Influenza A (Subtype H3) 07/12/18 16:20 Influenza Types A,B Direct FA ([facility]) - Final Mucosa - Nose Laboratory Tests Past 24 Hrs 07/14/18 07/14/18 06:00 06:00 WBC 16.7 H RBC 4.73 Hgb 12.5 Hct 37.7 MCV 79.7 L MCH 26.4 L MCHC 33.2 RDW 15.2 H RDW Differential 44.6 H Plt Count 248 MPV 10.0 Sodium 135 L Potassium 4.3 Chloride 102 Carbon Dioxide 25.0 Anion Gap 8 BUN 23 H Creatinine 0.83 Estim Creat Clear Calc 61.12 Est GFR (MDRD) Af Amer 91 Est GFR (MDRD) Non-Af 75 BUN/Creatinine Ratio 27.7 H Glucose 202 H Calcium 8.0 L POC Glucose 07/14/18 07/13/18 07/13/18 06:41 22:15 16:36 POC Glucose 176 H 332 H 312 H Discharge Diet: Carb Control Diet Discharge Activity: Return to Normal Activity, - - Use oxygen as needed to maintain O2 at or above 90%. Call your doctor if you observe: Fever of 101 or Higher, Shortness of breath, Dizziness, Fainting spells Home Medications: Medications to take at Discharge Apixaban [Eliquis] 1 tab PO BID 03/10/17 Amlodipine [Norvasc] 2.5 mg PO DAILY 10/19/17 Budesonide/Formoterol 160/4.5 [Symbicort 160/4.5 Mcg Inhaler (SP)] 2 puff IH BID 10/19/17 Atorvastatin Calcium [Lipitor] 20 mg PO QHS 07/12/18 Empagliflozin [Jardiance] 25 mg PO DAILY 07/12/18 Furosemide [Lasix] 40 mg PO DAILY 07/12/18 Insulin Glargine [Lantus SoloStar Pen] 25 units SQ QHS 07/12/18 Lisinopril 5 mg PO DAILY 07/12/18 Metformin(XR) [Glucophage Xr] 1,000 mg PO DAILY 07/12/18 Metformin(XR) [Glucophage Xr] 500 mg PO QHS 07/12/18 Multivitamin [Multiple Vitamins] 1 each PO DAILY 07/12/18 Potassium Chloride [K-Dur] 20 meq PO DAILY 07/12/18 Sertraline HCl 50 mg PO DAILY 07/12/18 Albuterol Aerosols [Ventolin Aerosols] 2.5 mg INHALATION Q2H PRN #90 vial.neb. 07/14/18 Levofloxacin [Levaquin] 750 mg PO DAILY #5 tablet 07/14/18 Oseltamivir Phosphate [Tamiflu] 30 mg PO BID #7 capsule 07/14/18 predniSONE tablet 40 mg PO DAILY@0800 #6 tablet 07/14/18 Following Prescrptions Were Given to Patient: Albuterol Aerosols [Ventolin Aerosols] 2.5 mg INHALATION Q2H PRN #90 vial.neb. PRN Reason: Shortness Of Breath Levofloxacin [Levaquin] 750 mg PO DAILY #5 tablet predniSONE tablet 40 mg PO DAILY@0800 #6 tablet Oseltamivir Phosphate [Tamiflu] 30 mg PO BID #7 capsule Primary Care Physician: Rosemary Danielle DO [Primary Care Provider] - Please follow up with your Primary Care Physician in: 1 Week Please Follow Up With: Rj Guaman MD When: Please call to establish with Pulmonary Medicine Disposition: Home Minutes spent on discharge:: 35 Patient Condition:: Stable Medical Necessity - Tobacco Use Smoking Status: Current every day smoker Tobacco Use: Cigarettes Meaningful Use Info Meaningful Use Diagnoses (Choose all that apply): None applicable <Keesha Lowe E - Last Filed: 07/14/18 12:39> Discharge Date and Diagnosis - Secondary Discharge Diagnosis Chronic Problems DM type 2 (diabetes mellitus, type 2) (Chronic) GERD (gastroesophageal reflux disease) (Chronic) COPD (chronic obstructive pulmonary disease) (Chronic) Factor V Leiden (Chronic) HTN (hypertension) (Chronic) Depression (Chronic) Tobacco dependence (Chronic) HLD (hyperlipidemia) (Chronic) Hospital Course and Treatment Summary of Care Provided: Hospitalist note: Discharge summary above reviewed and I agree with above discharge and treatment plan. Patient was admitted for shortness of breath, cough and she was found to have acute hypoxic respiratory insufficiency on chronic hypoxic respiratory failure secondary to COPD exacerbation triggered by influenza A as well as suspected community acquired pneumonia. Initial chest x-ray upon admission revealed questionable left lower lung infiltrate. She was found to have acute kidney injury with hypovolemic hyponatremia which was treated with IV fluids. She was treated with bronchodilators, IV steroids and Levaquin. Respiratory panel for viruses came back positive for influenza A which was treated with Tamiflu. Blood culture showed no growth up to the time of discharge. With IV fluid therapy, her serum creatinine and serum sodium improved and creatinine came back to normal. With steroids, antibiotics and bronchodilators, her symptoms improved and she was able to come off oxygen. Today, walking pulse oximeter was 92% on room air with ambulation and she did not qualify for home oxygen. Patient discharged home in a stable medical condition, discharged on oral Levaquin to complete 7 days of treatment, discharged on fixed dose of prednisone for total of 5 days, discharged on Tamiflu to complete 5 days of treatment, recommended follow-up with PCP in 1 week and follow-up with pulmonology in 4-6 weeks. - Physical Exam General: Alert, Oriented x3, Cooperative, minimally short of breath. HEENT: Atraumatic, PERRLA, EOMI. Neck: Supple, No JVD, Negative Carotid Bruits, Trachea Midline, Thyroid Normal. Lungs: Decreased breath sounds bilateral, occasional wheezes, No rhonchi, No rales. Cardiovascular: Regular rate, Regular Rhythm, Normal S1, Normal S2, PMI Normal. Abdomen: Bowel Sounds Present, Soft, Non Tender, Non-Distended, No Hepato- splenomegaly. Extremities: No clubbing, No cyanosis, No edema Skin: No rashes, No breakdown Neurological: Neuro grossly intact. This note was generated with [employer] dictation software. It may contain incorrect words, spelling, and punctuation that were not noted in checking the note before signing. - Physical Exam Vital Signs Temp Pulse Resp BP Pulse Ox 98.6 F 84 18 128/69 H 93 07/14/18 11:23 07/14/18 11:23 07/14/18 11:23 07/14/18 11:23 07/14/18 11:23 Oxygen Flow Rate (L/min) 1 Oxygen Delivery Method Room Air Weight: 131 lb 6.328 oz Body Mass Index (BMI) 23.0 Intake and Output for Last 24 Hours 07/12/18 07/13/18 07/14/18 23:59 23:59 23:59 Intake Total 5039 / 5039 1130 / 1130 Balance 5039 / 5039 1130 / 1130 Microbiology Past 72 Hours 07/12/18 16:30 Urine Culture - Final Urine, Clean Catch Mixed Gram Positive Organisms 07/12/18 16:30 Respiratory Panel (PCR) - Final Mucosa - Nasopharyngeal Influenza A (Subtype H3) 07/12/18 16:20 Influenza Types A,B Direct FA ([facility]) - Final Mucosa - Nose Laboratory Tests Past 24 Hrs 07/14/18 07/14/18 06:00 06:00 WBC 16.7 H RBC 4.73 Hgb 12.5 Hct 37.7 MCV 79.7 L MCH 26.4 L MCHC 33.2 RDW 15.2 H RDW Differential 44.6 H Plt Count 248 MPV 10.0 Sodium 135 L Potassium 4.3 Chloride 102 Carbon Dioxide 25.0 Anion Gap 8 BUN 23 H Creatinine 0.83 Estim Creat Clear Calc 61.12 Est GFR (MDRD) Af Amer 91 Est GFR (MDRD) Non-Af 75 BUN/Creatinine Ratio 27.7 H Glucose 202 H Calcium 8.0 L POC Glucose 07/14/18 07/14/18 07/13/18 11:29 06:41 22:15 POC Glucose 262 H 176 H 332 H 07/13/18 16:36 POC Glucose 312 H Disposition: Home Minutes spent on discharge:: 32 Patient Condition:: Stable Meaningful Use Info Meaningful Use Diagnoses (Choose all that apply): None applicable Code Visit Inpatient E&M: 97648 Disch Hosp
[2018-07-14 11:37] LABS: Bedside Glucose 262 mg/dL (70-110)
== END 2018-07-14 12:15 | disposition home or self-care (01) | DRG 190 ==
LOC: ED 16:48 → MS2 17:35
PROVIDERS: Emergency Medicine; Family Medicine; Nurse Practitioner Family; Admitting Provider Internal Medicine; Emergency Provider Emergency Medicine; Family Provider Internal Medicine; PCP Internal Medicine; Visit Provider Hospitalist
DX: J44.1 Chronic obstructive pulmonary disease with (acute) exacerbation (principal); J96.01 Acute respiratory failure with hypoxia; J96.11 Chronic respiratory failure with hypoxia; N17.9 Acute kidney failure, unspecified; E87.1 Hypo-osmolality and hyponatremia; D68.2 Hereditary deficiency of other clotting factors; J09.X2 Influenza due to identified novel influenza A virus with other respiratory manifestations; E86.0 Dehydration; I10 Essential (primary) hypertension; E78.5 Hyperlipidemia, unspecified; E11.9 Type 2 diabetes mellitus without complications; F32.9 Major depressive disorder, single episode, unspecified; Z79.02 Long term (current) use of antithrombotics/antiplatelets; Z79.4 Long term (current) use of insulin; Z79.899 Other long term (current) drug therapy; F17.210 Nicotine dependence, cigarettes, uncomplicated; D72.829 Elevated white blood cell count, unspecified
CPT/HCPCS: 36415; 71045; 71046; 80048; 81001; 82947; 82962; 83605; 83880; 85025; 85027; 87040; 87086; 87088; 87633; 87804; 93005; 94640; 94760; 97802; 99285; 99406; J7030; A4216

== ENCOUNTER 2019-06-09 13:09 | Emergency (ER) | payer OTHER, SELFPAY ==
[2018-07-12 18:37] VITALS: BMI 23.0
[2019-06-09 13:10] VITALS: BP 140/74; PULSE 81; RESP 17; TEMP 36.6; O2SAT 94; BMI 24.3
--- NOTE | 2019-06-09 13:45 | RAD_ITS ---
STUDY: X-RAY - UNILATERAL RIBS ( RIGHT ) WITH CHEST REASON FOR EXAM: Female, 59 years old. FALL LAST WEEK RT AXILLARY RIB PAIN FROM HITTING TABLE TECHNIQUE - RIBS: 3 view(s) of the ribs. TECHNIQUE - CHEST: Single PA view. COMPARISON: Chest exam dated July 13, 2018. FINDINGS - RIBS: Transverse irregular fracture lucency involves the anterolateral right sixth rib. FINDINGS - CHEST: There is new, linear, obliquely oriented opacity overlying the left lung base. There is no evident pleural effusion or pneumothorax. Normal size heart. There is no demonstrated mediastinal lymphadenopathy or mediastinal mass lesion. Normal visualized pulmonary arteries. Normal visualized aortic arch and descending thoracic aorta. Normal visualized thoracic spine. There is no demonstrated abnormality of the visualized soft tissue structures of the upper abdomen. RAD/Ribs Uni Min 3V w/PA Chest IMPRESSION: RIBS: Nondisplaced fracture of the anterolateral right sixth rib. CHEST: Subsegmental atelectasis versus early pneumonia within the left lung base. Electronically Signed: Hai England MD at 14:34 EST , Service support ,
[2019-06-09 15:23] VITALS: PULSE 84; RESP 18; TEMP 36.9; O2SAT 94
--- NOTE | 2019-06-09 15:24 | ED.VISSUMM ---
- ER Visit Summary Date of Service: 06/09/19 Chief Complaint: Right rib pain History of Present Illness: The patient is a 59 F who presents with right rib pain that began after a fall 1 week ago. Patient states she landed on the right side of her chest. Patient states the pain is over the right lower chest area. Patient states her pain is worse with coughing and deep breathing. Patient describes her pain is constant aching but sharp at times. Patient denies any head injury or loss of consciousness. Patient denies any other injuries. Physical Examination: Vital signs are stable. Patient is afebrile. Patient is in no acute distress. Oral mucosa is pink and moist. Neck is supple. Trachea is midline. There is no JVD. Heart was regular rate and rhythm. Lungs were clear and equal bilaterally. There is tenderness over the right lower chest wall. There is no bony crepitance or step-off. Abdomen is soft. Bowel sounds are normal. There is no tenderness. Cranial nerves II through XII are intact. There are no focal motor or sensory deficits noted. There is full range of motion of all extremities. Test Results: X-rays of the right ribs were obtained. There is a fracture of the right sixth rib. There is left basilar atelectasis versus infiltrate. This was interpreted by the radiologist and myself. Emergency Department Course and Treatment: Since the patient is afebrile and has only a mild cough, I do not feel the atelectasis is an infiltrate. Patient was given a prescription for [place]. Patient was given an incentive spirometer. Patient was instructed to take 10-15 deep breaths every hour while awake to prevent atelectasis and pneumonia. Patient was instructed to follow-up with her primary care physician in 5 to 7 days. Patient understood and was agreeable with the plan. All questions were answered. Disposition: Discharge home Impression: Right rib fracture This note was generated with [employer] dictation software. It may contain incorrect words, spelling, and punctuation that were not noted in review of the chart prior to signing ED Disposition - Plan for ED Patient: Disposition: Home or Assisted Living Diagnosis: Right rib fracture Instructions: FRACTURE, Rib Prescriptions: Hydrocodone Bitart/Apap 5-325 [[place] 5MG-325MG] 1 tab PO Q6H PRN PRN 3 Days #10 tab PRN Reason: Pain Prescription Printed Referrals: Fast,Rosemary, DO [Primary Care Provider] - 3-5 Days
[2019-06-09] MEDS: HYDROcodone Bitartrate/Apap 5/325 Tablet PO (15:49)
[2019-06-09 15:50] VITALS: PULSE 84; RESP 18; O2SAT 94
== END 2019-06-09 15:52 | disposition home or self-care (01) ==
PROVIDERS: Emergency Provider Emergency Medicine; Family Provider Internal Medicine; PCP Internal Medicine
DX: S22.31XA Fracture of one rib, right side, initial encounter for closed fracture (principal); W19.XXXA Unspecified fall, initial encounter; Y93.9 Activity, unspecified; Y92.9 Unspecified place or not applicable; J44.9 Chronic obstructive pulmonary disease, unspecified; E11.9 Type 2 diabetes mellitus without complications; D68.9 Coagulation defect, unspecified; Z79.4 Long term (current) use of insulin; Z79.84 Long term (current) use of oral hypoglycemic drugs; Z79.01 Long term (current) use of anticoagulants; Z79.899 Other long term (current) drug therapy; Z72.0 Tobacco use
CPT/HCPCS: 71101; 99283

== ENCOUNTER → 2019-07-06 13:38 | Outpatient (CLI) | payer OTHER, SELFPAY ==
[2019-06-09 13:10] VITALS: BMI 24.3
--- NOTE | 2019-07-06 14:02 | US_ITS ---
STUDY: THYROID ULTRASOUND REASON FOR EXAM: Female, 59 years old. NODULES TECHNIQUE: Ultrasound evaluation of the thyroid was performed with real-time and static hopper-scale imaging. COMPARISON: 04/27/2017 FINDINGS: RIGHT LOBE: The right lobe of the thyroid gland measures 4.7 x 1.5 x 2.1 cm. There is a homogeneous echotexture. There are very small anechoic dominant nodules of the right thyroid lobe measuring up to 4 mm. No suspicious, solid nodule identified. LEFT LOBE: The left lobe of the thyroid gland measures 4.7 x 1.5 x 1.5 cm. There is a dominant hypoechoic nodule of the left thyroid lobe measures 8 x 9 x 7 mm, not substantially changed since the prior study. Additional very small hypoechoic nodules measuring 6-7 mm are also stable. No suspicious solid or enlarging nodule. ISTHMUS: The isthmus measures 3 mm. The regional lymph nodes are normal. US/Thyroid IMPRESSION: 1. Stable bilateral thyroid nodules. No new, enlarging or suspicious thyroid nodule. Electronically Signed: Jamil Munoz MD (Brooks) at 10:22 EST , Service support ,
--- NOTE | 2019-07-06 14:02 | CT_ITS ---
STUDY: CT CHEST WITHOUT CONTRAST REASON FOR EXAM: Female, 59 years old. Lung nodule for follow-up, smokes 1 pack a day. Fall one month ago with right rib pain and fracture. RADIATION DOSAGE (If Supplied By Facility): CTDIvol = ( 8.25 ) mGy, DLP = ( 298.44 ) mGycm TECHNIQUE: Transaxial imaging was performed without the administration of intravenous contrast material. Individualized dose optimization techniques were used for this CT. COMPARISON: CT chest March 25, 2017. Chest x-ray July 12, 2018. Thyroid ultrasound July 06, 2019 and April 27, 2017. FINDINGS: Lungs are hyperinflated. Mild emphysematous changes best appreciated in the upper lobes. No focal infiltrates or effusions. No pneumothorax. Scattered tiny peripheral 1 mm noncalcified lung nodules in the upper lobes and left lower lobe not significantly changed on the right axial image 64 series 4 and on the left axial image 67, 126, 143, 160, 161. 3 mm density right lung apex probably representing scar , axial image 33 series 4 using lung windows. Minimal peripheral areas of fibrosis. Normal heart and pericardium. Scattered small mediastinal lymph nodes which are not pathologic by size criteria. Normal hilar regions. Normal unenhanced pulmonary arteries. Normal aorta arch and descending thoracic aorta. Heterogeneous appearance of the thyroid gland secondary to nodules and cysts in both lobes noted on the recent thyroid ultrasound. Old minimally displaced right sixth posterior rib fracture in the mid axillary line axial image 126 series 2, new since the CT of March 2017. There is no demonstrated abnormality of the visualized upper abdomen. CT/Chest without Contrast IMPRESSION: Multiple very small noncalcified lung nodules bilaterally not significantly changed. For patients low risk for malignancy no follow-up is required. For patients high risk for malignancy, optional CT follow-up in 12 months from the initial exam. Since the initial study was performed in March 2017 and there has been no significant change in greater than 2 years later, no follow-up is required. Very small focus of scar right lung apex. Emphysematous changes. Old right sixth posterior rib fracture. Electronically Signed: Chris Tello MD at 8:11 EST , Service support ,
== END ==
PROVIDERS: PCP Internal Medicine; Referring Provider Internal Medicine; Visit Provider Internal Medicine
DX: R91.1 Solitary pulmonary nodule (principal); E04.1 Nontoxic single thyroid nodule
CPT/HCPCS: 71250; 76536

== ENCOUNTER → 2019-07-27 10:19 | Outpatient (CLI) | payer OTHER, SELFPAY ==
--- NOTE | 2019-07-27 10:23 | BI_ITS ---
MAMMOGRAPHY - BILATERAL SCREENING REASON FOR EXAM: Female, 59 years old. Routine annual screening examination. PERTINENT HISTORY: Non-contributory. TECHNIQUE: Digital bilateral breast ayden (3D mammographic acquisition) in the CC and MLO projections. 2-D mediolateral oblique (MLO) and craniocaudad (CC) views of both breasts were obtained. CAD: Full Field Digital Mammography with Computer Added Detection was performed. COMPARISON: Comparison is made with prior examination dated March 25, 2018 and March 24, 2017. FINDINGS: Breast Composition: There are scattered areas of fibroglandular density. There are no dominant masses or suspicious calcifications. No other significant abnormalities are identified. There has been no significant change since the prior study. BI/SCREEN MAMM (CAD) W/AYDEN BILAT IMPRESSION: Stable bilateral screening mammogram. Yearly follow-up mammogram recommended. (A) ASSESSMENT CATEGORY: BIRADS Category 1: Negative. A letter regarding these results will be sent to the patient by the facility within 30 days. Approximately 10% of breast cancers are not detected by mammography. A normal mammogram should not delay biopsy of a clinically suspicious abnormality. [id number] Electronically Signed: Harsh Almeida, at 13:38 EST , Service support ,
--- NOTE | 2019-07-27 10:26 | BD_ITS ---
STUDY: DUAL ENERGY X-RAY ABSORPTIOMETRY / DXA REASON FOR EXAM: Female, 59 years old. AUTOMATION TESTER -- TYPE 2 DIABETIC- TAKES METFORMIN -- SMOKER -- USES STEROID INHALER -- DOES NO EXERCISE -- RECENT RIB FX -- ROC OF 1.5 INCHES TECHNIQUE: Bone Mineral Density (BMD) measurements of lumbar spine and bilateral hips were obtained. COMPARISON: Comparison is made with prior examination dated March 24, 2017. FINDINGS: Lumbar Spine (L1-L4): g/cm2 (0.923) / T-score (-2.1) / Z-score (-1.0) Findings are suggestive of osteopenia with a high fracture risk. Left Femur Total: g/cm2 (0.762) / T-score (-2.0) / Z-score (-1.1) Left Femoral Neck: g/cm2 (0.731) / T-score (-2.2) / Z-score (-1.0) Right Femur Total: g/cm2 (0.754) / T-score (-2.0) / Z-score (-1.1) Right Femoral Neck: g/cm2 (0.742) / T-score (-2.1) / Z-score (-0.9) The T-Scores on the most recent prior examination were: Lumbar Spine (L1-L4): There has been worsening of bone density since the previous examination. Left Femur Total: which represents a worsening of 4.8%. Right Femur Total: which represents a worsening of 7.1%. BD/Dexa Bone Density Study IMPRESSION: The patient is considered osteopenic as outlined below according to [employer] Organization (WHO) criteria with a high fracture risk. There has been worsening of bone density since the previous examination. Reference Information: The T-score is the number of standard deviations above or below the standard which is normal for young adults at their peak bone mineral density. The World Health Organization (WHO) interprets the T-scores as follows: Above -1 Normal bone density Between -1 and -2.5 Osteopenia Equal to / or below -2.5 Osteoporosis As a practical clinical guideline, osteopenia may be graded as follows: Mild -1 through -1.5 Moderate -1.6 through -2.0 Severe -2.1 through -2.4 The Z-score is the number of standard deviations above or below age-matched controls. A Z-score of less than -1.5 would be considered abnormal. References: 1. NIH Osteoporosis and Related Bone Diseases http://www.osteo.org 2. International Society for Clinical Densitometry http://www.iscd.org 3. National Osteoporosis Foundation http://www.nof.org Electronically Signed: Harsh Almeida, at 12:33 EST , Service support ,
== END ==
PROVIDERS: PCP Internal Medicine; Referring Provider Internal Medicine; Visit Provider Internal Medicine
DX: Z12.31 Encounter for screening mammogram for malignant neoplasm of breast (principal); Z78.0 Asymptomatic menopausal state
CPT/HCPCS: 77063; 77067; 77080

== ENCOUNTER → 2019-12-05 15:31 | Outpatient (CLI) | payer OTHER, SELFPAY ==
[2019-12-05 16:27] LABS: Absolute Lymphocyte Count 1.25 X10^3/uL (0.83-4.51); Absolute Neutrophil Count 7.5 X10^3/uL (2.0-7.7); Basophil# 0.04 X10^3/uL; Basophil% 0.4 % (0-1); Eosinophil# 0.01 X10^3/uL; Eosinophils% 0.1 % (0-5); Hematocrit 43.7 % (37-47); Hemoglobin 14.2 g/dL (12.0-15.0); Lymphocyte # 1.25 X10^3/ul (4.0); Lymphocyte % 13.1 % (19-41); Mean Corp Hgb Conc 32.5 g/dL (32-36); Mean Corpuscular Hgb 27.4 pg (27.0-32.0); Mean Corpuscular Volume 84.4 fL (81-99); Mean Platelet Vol. 10.9 fl (6.2-12.0); Monocyte# 0.71 X10^3/uL; Monocyte% 7.5 % (0-10); NRBC Flagged by Analyzer 0 % (0-5); Neutrophil # 7.45 X10^3/uL (2.7-7.7); Neutrophil % 78.4 % (47-70); Platelet Count 275 K/mm3 (150-450); RBC Distribution Width CV 13.2 % (11.6-14.6); RBC Distribution Width SD 40.5 fl (35.1-43.9); Red Blood Count 5.18 M/mm3 (4.2-5.4); White Blood Count 9.5 K/mm3 (4.4-11.0)
[2019-12-05 16:31] LABS: ALB/GLOB Ratio 0.9 RATIO (0.9-2.4); AST(SGOT) 11 U/L (15-37); Alanine Aminotransfer ALT/SGPT 16 U/L (13-56); Albumin, Serum 3.3 g/dL (3.2-5.0); Alkaline Phosphatase 106 U/L (45-117); Amylase 19 U/L (25-115); Anion Gap 5 (5-15); BUN 27 mg/dL (7-18); BUN/Creat Ratio 27.5 RATIO (10-20); Calcium,Total 8.5 mg/dL (8.5-10.1); Chloride 102 mmol/L (98-107); Creatinine, Serum 0.98 mg/dL (0.55-1.02); EST Glomerular Filtration Rate 62 mL/min (>60); Est Glom Filt Rate - Afr Amer 74 mL/min (>60); Globulin 3.6 g/dL (2.2-4.2); Glucose 310 mg/dL (74-106); Lipase 98 U/L (73-393); Potassium 5.1 mmol/L (3.5-5.1); Protein, Total 6.9 g/dL (6.4-8.2); Sodium Level 137 mmol/L (136-145)
== END ==
PROVIDERS: PCP Internal Medicine; Referring Provider Internal Medicine; Visit Provider Internal Medicine
DX: E86.0 Dehydration (principal)
CPT/HCPCS: 80053; 82150; 83690; 85025

== ENCOUNTER 2019-12-07 07:09 | Emergency (ER) | payer OTHER, SELFPAY ==
[2019-12-07 07:10] VITALS: BP 113/66; PULSE 88; RESP 16; TEMP 36.2; O2SAT 94; BMI 24.1
--- NOTE | 2019-12-07 07:26 | CT_ITS ---
STUDY: CT ABDOMEN AND PELVIS WITH CONTRAST REASON FOR EXAM: Female, 59 years old. ABD PAIN. NAUSEA SINCE SAT. WORSE TODAY RADIATION DOSAGE (If Supplied By Facility): CTDIvol = ( 13.16 ) mGy, DLP = ( 432.15 ) mGycm TECHNIQUE: Transaxial images were obtained from the dome of the diaphragm to the symphysis pubis with oral contrast. Oral and amp; IV Breeza and amp; 100mL Isovue-300 was administered. Sagittal and coronal images were reconstructed. Individualized dose optimization techniques were used for this CT. COMPARISON: Comparison is made with prior examination dated October 19, 2017. FINDINGS: The visualized lung bases are unremarkable. The visualized portions of the heart are within normal limits. There is decreased attenuation of the liver consistent with steatosis. Normal gallbladder and extrahepatic biliary system. Normal spleen. There is diffuse atrophy of the pancreas. Normal bilateral adrenal glands. Normal right kidney. Normal left kidney. Normal visualized stomach. Normal small intestine. Large amount of fecal material is seen in the colon. The appendix is visualized and appears normal. There is scattered atherosclerotic calcification of the abdominal aorta, without a demonstrated aneurysm. 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 Normal retroperitoneum. The urinary bladder is distended. Calcified fibroid uterus. Normal abdominal wall. Normal osseous structures. CT/Abdomen/Pelvis WITH Contrast IMPRESSION: Fatty filtration of the liver. Large amount of fecal material is seen in the colon. Left-sided inferior vena cava. Electronically Signed: Harsh Almeida, at 9:38 EDT , Service support ,
--- NOTE | 2019-12-07 07:27 | ED.VISSUMM ---
- ER Visit Summary Date of Service: 12/07/19 Chief Complaint: Abdominal pain History of Present Illness: The patient is a 59 F who presents with abdominal pain is been getting worse over the past 5 days. Patient states the pain has been constant. Patient describes her pain as throbbing. Patient states it also feels like there is some burning when she tries to eat anything. Patient admits to constant nausea. Patient had one episode of vomiting but denies any further vomiting. Patient admits to some constipation. Patient denies any melena or hematochezia. Patient denies any dysuria or hematuria. Patient denies any radiation of the pain. Patient admits to subjective chills but denies any fevers. Patient denies any chest pain or shortness of breath. Physical Examination: Vital signs are stable. Patient is afebrile. Patient is in no acute distress. Oral mucosa is pink and moist. Neck is supple. Trachea is midline. There is no JVD. Heart was regular rate and rhythm. Lungs are clear and equal bilaterally. Abdomen is soft. There is upper abdominal tenderness. There is no rebound or guarding noted. Bowel sounds are normal. Extremities are intact. There is no calf tenderness or edema. Cranial nerves II through XII are intact. There are no focal motor or sensory deficits. Test Results: CBC was normal. Comprehensive metabolic profile showed an elevated glucose of 440. Sodium was slightly low at 129. Anion gap was normal. Urinalysis does not show any evidence of urinary tract infection. CT scan of the abdomen pelvis was obtained. There is large amount of fecal material in the colon. There is no acute intra-abdominal process. There is distention of the urinary bladder. This was interpreted by the radiologist and reviewed by myself. Emergency Department Course and Treatment: Patient was given IV fluids, morphine, and Zofran. After the patient returned from CT she was able to urinate and stated she urinated a large amount. Bladder scan was obtained and only showed 175 mL's in the bladder. Patient was also given a dose of Humalog. Repeat BGT was obtained and was 213. Patient is feeling better on reevaluation. Patient was given a prescription for Prilosec and Zofran. Patient was instructed to follow-up with her primary care physician in 5 to 7 days. Patient understood and was agreeable with the plan. All questions were answered. Disposition: Discharge home Impression: 1. Abdominal pain 2. Hyperglycemia This note was generated with [employer] dictation software. It may contain incorrect words, spelling, and punctuation that were not noted in review of the chart prior to signing ED Disposition - Plan for ED Patient: Disposition: Home or Assisted Living Diagnosis: Abdominal pain Instructions: ED Abdominal Pain Unkn Cause Fem Prescriptions: Omeprazole [Prilosec] 20 mg PO DAILY #30 cap Prescription Printed Ondansetron [Zofran Odt] 4 mg PO Q8H PRN PRN #10 tab PRN Reason: Nausea Prescription Printed Referrals: Rosemary Danielle DO [Primary Care Provider] - 5-7 Days
[2019-12-07 07:36] LABS: Absolute Lymphocyte Count 1.56 X10^3/uL (0.83-4.51); Absolute Neutrophil Count 6.4 X10^3/uL (2.0-7.7); Basophil# 0.06 X10^3/uL; Basophil% 0.7 % (0-1); Eosinophils% 1.1 % (0-5); Hemoglobin 15.2 g/dL (12.0-15.0); Lymphocyte # 1.56 X10^3/ul (4.0); Lymphocyte % 17.3 % (19-41); Mean Corpuscular Hgb 27.4 pg (27.0-32.0); Mean Platelet Vol. 9.9 fl (6.2-12.0); Monocyte# 0.83 X10^3/uL; Monocyte% 9.2 % (0-10); NRBC Flagged by Analyzer 0 % (0-5); Neutrophil # 6.41 X10^3/uL (2.7-7.7); Neutrophil % 71.3 % (47-70); Platelet Count 278 K/mm3 (150-450); RBC Distribution Width CV 12.7 % (11.6-14.6); RBC Distribution Width SD 37.9 fl (35.1-43.9); Red Blood Count 5.54 M/mm3 (4.2-5.4)
[2019-12-07 07:39] LABS: Bacteria 0 SEEN /hpf (None Seen); Mucous, Urine 0 SEEN /hpf (<or=2+); White Blood Cells 0 SEEN /hpf (0-5)
[2019-12-07] MEDS: 0.9% Normal Saline 1,000 ML 1000 ML IV (07:39)
[2019-12-07] MEDS: Morphine 4 MG/ML Syringe IV (07:40)
[2019-12-07] MEDS: Ondansetron 4 MG/2 ML Vial IV (07:42)
[2019-12-07 07:52] LABS: ALB/GLOB Ratio 0.8 RATIO (0.9-2.4); AST(SGOT) 8 U/L (15-37); Alanine Aminotransfer ALT/SGPT 17 U/L (13-56); Albumin, Serum 3.4 g/dL (3.2-5.0); Alkaline Phosphatase 104 U/L (45-117); Anion Gap 6 (5-15); BUN 15 mg/dL (7-18); Calcium,Total 8.4 mg/dL (8.5-10.1); Chloride 94 mmol/L (98-107); Creatinine, Serum 0.94 mg/dL (0.55-1.02); EST Glomerular Filtration Rate 65 mL/min (>60); Est Glom Filt Rate - Afr Amer 79 mL/min (>60); Estimated Creatinine Clearance 50.97 ml/min; Globulin 4.1 g/dL (2.2-4.2); Glucose 440 mg/dL (74-106); Lipase 128 U/L (73-393); Potassium 3.6 mmol/L (3.5-5.1); Protein, Total 7.5 g/dL (6.4-8.2); Sodium Level 129 mmol/L (136-145)
[2019-12-07 08:27] LABS: Color, Urine Yellow (Yellow); Glucose, Dipstick 1000 mg/dl (Normal); Ketone-Dipstick Negative (Negative); Leukocyte Esterase-Dipstick Negative /ul (Negative); Nitrite-Dipstick Negative (Negative); Occult Blood-Urine 50 /ul (Negative); Protein-Dipstick 500 mg/dl (Negative); Specific Gravity, Urine 1.015 (1.002-1.030); Urine Bilirubin Dipstick Negative (Negative); Urine Clarity Sl. Cloudy (Clear); Urine Urobilinogen Normal (Normal)
[2019-12-07 08:34] LABS: Red Blood Cells-Urine 0-5 SEEN /hpf (0-5); Squamous Epithelial Cells - UA 0-5 SEEN /hpf (5-10)
[2019-12-07] MEDS: Insulin Lispro 100 UNIT/ML INSULN.PEN 10 UNIT SC (08:55)
[2019-12-07 09:27] VITALS: BP 160/73; PULSE 73; RESP 16; O2SAT 100
[2019-12-07 10:05] VITALS: BP 99/50; PULSE 78; RESP 18; O2SAT 99
[2019-12-07 10:11] LABS: Bedside Glucose 213 mg/dL (70-110)
== END 2019-12-07 10:10 | disposition home or self-care (01) ==
PROVIDERS: Emergency Provider Emergency Medicine; PCP Internal Medicine
DX: R10.9 Unspecified abdominal pain (principal); E11.65 Type 2 diabetes mellitus with hyperglycemia; F17.200 Nicotine dependence, unspecified, uncomplicated; Z79.84 Long term (current) use of oral hypoglycemic drugs; Z79.4 Long term (current) use of insulin
CPT/HCPCS: 74177; 80053; 81001; 82962; 83690; 85025; 96374; 96375; 99284; J7030; Q9967; A4216; J2405

== ENCOUNTER 2021-08-28 14:03 | Outpatient (CLI) | payer OTHER, SELFPAY ==
--- NOTE | 2021-08-28 14:07 | VDLE_ITS ---
Reason For Study: Pain RIGHT LEFT GSV is normal. CFV is partially compressible with bright CFV is partially compressible with bright intraluminal echoes consistent with Chronic intraluminal echoes consistent with Chronic DVT. Normal venous flow noted. DVT. Normal venous flow noted. FV prox-mid is partially compressible with bright intraluminal echoes consistent with Chronic DVT. Normal venous flow noted. PTV is compressible Acute deep vein thrombosis is noted in the right FV distal, PopV, T/P trunk, PeroV. Procedure This is a venous duplex using B-mode, color flow and spectral Doppler. Exam performed in department. A preliminary report was called and/or faxed to [facility]. VL/Venous Duplex US, Unilateral Interpretation Summary Acute deep vein thrombosis is noted in the right distal femoral vein. Acute kyle p vein thrombosis is noted in the right popliteal vein. Acute deep vein thrombosis is noted in the r ight tibio-peroneal trunk. Acute deep vein thrombosis is noted in the right peroneal vein. Chronic venous changes are noted in the right common femoral vein, and the proximal and mid-femoral vein. The right posterior tibial vein is patent and compressible. The right great saphenous vein is paten t and compressible. Chronic venous changes are noted in the left common femoral vein. Ordering Physician: Rosemary Danielle Referring Physician: Rosemary Danielle Performed By: Aalnna Oliver RVT
[2021-08-28 15:24] LABS: Absolute Lymphocyte Count 2.15 X10^3/uL (0.83-4.51); Absolute Neutrophil Count 7.1 X10^3/uL (2.0-7.7); Basophil# 0.07 X10^3/uL; Basophil% 0.7 % (0-1); Eosinophil# 0.15 X10^3/uL; Eosinophils% 1.5 % (0-5); Hematocrit 42.2 % (37-47); Hemoglobin 14.2 g/dL (12.0-15.0); Lymphocyte # 2.15 X10^3/ul (0.83-4.51); Lymphocyte % 21.2 % (19-41); Mean Corp Hgb Conc 33.6 g/dL (32-36); Mean Corpuscular Hgb 26.7 pg (27.0-32.0); Mean Corpuscular Volume 79.3 fL (81-99); Mean Platelet Vol. 10.5 fl (6.2-12.0); Monocyte# 0.65 X10^3/uL; Monocyte% 6.4 % (0-10); NRBC Flagged by Analyzer 0 % (0-5); Neutrophil # 7.07 X10^3/uL (2.7-7.7); Neutrophil % 69.9 % (47-70); Platelet Count 298 K/mm3 (150-450); RBC Distribution Width CV 13.4 % (11.6-14.6); RBC Distribution Width SD 38.5 fl (35.1-43.9); Red Blood Count 5.32 M/mm3 (4.2-5.4); White Blood Count 10.1 K/mm3 (4.4-11.0)
[2021-08-28 15:56] LABS: Microalbumin:Creatinine Ratio 480.3 mg/g CRE (<30 mg/g CRE)
[2021-08-28 16:00] LABS: Hemoglobin A1c 13.8 % (3.8-5.6)
[2021-08-28 16:15] LABS: ALB/GLOB Ratio 0.6 RATIO (0.9-2.4); AST(SGOT) 11 U/L (15-37); Alanine Aminotransfer ALT/SGPT 16 U/L (13-56); Albumin, Serum 3.2 g/dL (3.2-5.0); Alkaline Phosphatase 135 U/L (45-117); Anion Gap 6 (5-15); BUN 20 mg/dL (7-18); BUN/Creat Ratio 15.5 RATIO (10-20); Calcium,Total 9.2 mg/dL (8.5-10.1); Chloride 91 mmol/L (98-107); Cholesterol 308 mg/dL (200); Creatinine, Serum 1.29 mg/dL (0.55-1.02); EST Glomerular Filtration Rate 45 mL/min (>60); Est Glom Filt Rate - Afr Amer 54 mL/min (>60); Globulin 5.1 g/dL (2.2-4.2); Glucose 430 mg/dL (74-106); High Density Lipoprotein 31 mg/dL; Potassium 5.3 mmol/L (3.5-5.1); Protein, Total 8.3 g/dL (6.4-8.2); Sodium Level 129 mmol/L (136-145); Triglycerides 321 mg/dL; Very Low Density Lipoprotein 64 mg/dL (5-40); Vitamin D,25 Hydroxy 17.7 ng/mL
== END 2021-08-28 23:59 | disposition home or self-care (01) ==
LOC: CVS 14:06
PROVIDERS: PCP Internal Medicine; Referring Provider Internal Medicine; Visit Provider Internal Medicine
DX: M79.604 Pain in right leg (principal); E11.65 Type 2 diabetes mellitus with hyperglycemia; E78.5 Hyperlipidemia, unspecified; M81.0 Age-related osteoporosis without current pathological fracture; E55.9 Vitamin D deficiency, unspecified
CPT/HCPCS: 36415; 80053; 80061; 82043; 82306; 82570; 83036; 84443; 85025; 93971

== ENCOUNTER → 2021-10-14 | Outpatient (CLI) | payer OTHER, SELFPAY ==
--- NOTE | 2021-10-14 13:22 | CT_ITS ---
STUDY: CT CHEST WITHOUT CONTRAST REASON FOR EXAM: Female, 61 years old. SMOKER AND LUNG NODULES HIGH RISK RADIATION DOSAGE (If Supplied By Facility): CTDIvol = ( 6.51 ) mGy, DLP = ( 229.30 ) mGycm TECHNIQUE: Transaxial imaging was performed without the administration of intravenous contrast material. Multiplanar coronal and sagittal images were reformatted. Individualized dose optimization techniques were used for this CT. COMPARISON: Comparison is made with prior study dated 07/06/2019. FINDINGS: CHEST Stable small benign-appearing bilateral axillary lymph nodes. Hyperinflation. Emphysematous changes slightly worse in the upper lobes. Since prior study, there has been slight increase in size of the nodule in the superior segment of the left lower lobe as seen on axial image #66. It presently measures approximately 3 mm. Stable tiny nodules in the upper lobes. There is no demonstrated pleural abnormality. There are mild calcifications of the coronary arteries. Minimal anterior pericardial thickening. There are multiple small lymph nodes within the mediastinum, which are normal in size and morphology most compatible with reactive lymph hyperplasia. Normal hilar regions. Normal unenhanced pulmonary arteries. There is atherosclerotic calcification of the aortic arch with tortuosity and elongation of the aortic arch and descending thoracic aorta. There are multi-level degenerative changes of the thoracic spine. There is no demonstrated abnormality of the visualized upper abdomen. CT/Chest without Contrast IMPRESSION: Slight increase in size of a noncalcified nodule in the superior segment of the left lower lobe. A 3 month follow-up examination is recommended. Electronically Signed: Harsh Almeida MD at 14:24 EDT ,
== END | disposition home or self-care (01) ==
LOC: CT 13:20
PROVIDERS: PCP Internal Medicine; Referring Provider Internal Medicine; Visit Provider Internal Medicine
DX: R91.1 Solitary pulmonary nodule (principal)
CPT/HCPCS: 71250

== ENCOUNTER → 2022-06-10 | Outpatient (CLI) | payer OTHER, SELFPAY ==
--- NOTE | 2022-06-10 13:12 | BI_ITS ---
MAMMOGRAPHY - BILATERAL SCREENING REASON FOR EXAM: Female, 62 years old. Routine annual screening examination. PERTINENT HISTORY: Non-contributory. TECHNIQUE: Digital bilateral breast ayden (3D mammographic acquisition) in the CC and MLO projections. 2-D mediolateral oblique (MLO) and craniocaudad (CC) views of both breasts were obtained. CAD: Full Field Digital Mammography with Computer Added Detection was performed. COMPARISON: Comparison is made with prior study dated 07/27/2019 and 03/25/2018. FINDINGS: Breast Composition: There are scattered areas of fibroglandular density. There are no dominant masses or suspicious calcifications. No other significant abnormalities are identified. There has been no significant change since the prior study. BI/SCRN MAMM (CAD)W/AYDEN BILAT IMPRESSION: Stable bilateral screening mammogram. Yearly follow-up mammogram recommended. (A) ASSESSMENT CATEGORY: BIRADS Category 1: Negative. A letter regarding these results will be sent to the patient by the facility within 30 days. Approximately 10% of breast cancers are not detected by mammography. A normal mammogram should not delay biopsy of a clinically suspicious abnormality. [id number] Electronically Signed: Harsh Almeida MD at 14:37 EST ,
--- NOTE | 2022-06-10 13:33 | US_ITS ---
STUDY: THYROID ULTRASOUND REASON FOR EXAM: Female, 62 years old. Follow up on thyroid nodule TECHNIQUE: Ultrasound evaluation of the thyroid was performed with real-time and static hopper-scale imaging. COMPARISON: Comparison is made with prior study dated 2019. FINDINGS: RIGHT LOBE: The right lobe of the thyroid gland measures 4.4 cm x 1.4 cm x 2 cm. There is a homogeneous echotexture. Stable small multiple subcentimeters cysts. The largest measures 3 mm x 3 mm x 2 mm. LEFT LOBE: The left lobe of the thyroid gland measures 4.6 cm x 1.5 cm x 2.1 cm. There is a homogeneous echotexture. Multiple small cystic and hypoechoic nodules are seen. The largest measures 8 mm x 8 mm x 5 mm. There has been no change. ISTHMUS: The isthmus measures 2 mm. The regional lymph nodes are normal. US/Thyroid IMPRESSION: Stable multiple subcentimeter cysts in the right lobe as well as small hypoechoic nodules in the left lobe. Electronically Signed: Harsh Almeida MD at 12:20 EST ,
--- NOTE | 2022-06-10 13:34 | BD_ITS ---
STUDY: DUAL ENERGY X-RAY ABSORPTIOMETRY / DXA REASON FOR EXAM: Female, 62 years old. Z780 -- postmenopausal TECHNIQUE: Bone Mineral Density (BMD) measurements of lumbar spine and bilateral hips were obtained. COMPARISON: Comparison is made with prior study dated 07/27/2019. FINDINGS: Lumbar Spine (L1-L4): g/cm2 (0.793) / T-score (-2.3) / Z-score (0.7) Findings are suggestive of osteopenia with a high fracture risk. Left Femur Total: g/cm2 (0.714) / T-score (-1.9) / Z-score (0.8) Left Femoral Neck: g/cm2 (0.545) / T-score (-2.7) / Z-score (-1.4) Right Femur Total: g/cm2 (0.679) / T-score (-2.2) / Z-score (-1.1) Right Femoral Neck: g/cm2 (0.559) / T-score (-2.6) / Z-score (-1.2) The T-Scores on the most recent prior examination were: Lumbar Spine (L1-L4): There has been worsening of bone density since the previous examination. Left Femur Total: which represents an improvement of 1.7%. Right Femur Total: which represents a worsening of 2.3%. BD/Dexa Bone Density Study IMPRESSION: The patient is considered osteoporotic as outlined below according to [employer] (WHO) criteria with a high fracture risk. There has been worsening of bone density since the previous examination. Reference Information: The T-score is the number of standard deviations above or below the standard which is normal for young adults at their peak bone mineral density. The World Health Organization (WHO) interprets the T-scores as follows: Above -1 Normal bone density Between -1 and -2.5 Osteopenia Equal to / or below -2.5 Osteoporosis As a practical clinical guideline, osteopenia may be graded as follows: Mild -1 through -1.5 Moderate -1.6 through -2.0 Severe -2.1 through -2.4 The Z-score is the number of standard deviations above or below age-matched controls. A Z-score of less than -1.5 would be considered abnormal. References: 1. NIH Osteoporosis and Related Bone Diseases www osteo.org 2. International Society for Clinical Densitometry www iscd.org 3. National Osteoporosis Foundation www nof.org Electronically Signed: Harsh Almeida MD at 8:43 EST ,
== END | disposition home or self-care (01) ==
LOC: OPBD 13:09
PROVIDERS: PCP Internal Medicine; Visit Provider Internal Medicine
DX: Z12.31 Encounter for screening mammogram for malignant neoplasm of breast (principal); M81.0 Age-related osteoporosis without current pathological fracture; Z78.0 Asymptomatic menopausal state; M85.80 Other specified disorders of bone density and structure, unspecified site; E04.1 Nontoxic single thyroid nodule
CPT/HCPCS: 76536; 77063; 77067; 77080

== ENCOUNTER → 2023-10-14 | Outpatient (CLI) | payer OTHER, SELFPAY ==
--- NOTE | 2023-10-14 07:24 | US_ITS ---
STUDY: THYROID ULTRASOUND REASON FOR EXAM: Female, 63 years old. Thyroid nodules. TECHNIQUE: Ultrasound evaluation of the thyroid was performed with real-time and static hopper-scale imaging. COMPARISON: Comparison is made with prior study dated June 10, 2022. FINDINGS: RIGHT LOBE: The right lobe of the thyroid gland measures 4.5 cm x 1.4 cm x 1.4 cm. There is a homogeneous echotexture. Once again, multiple small subcentimeter hypoechoic nodules are seen. The largest measures 3 mm x 3 mm x 3 mm. These are in the upper and midpole regions. LEFT LOBE: The left lobe of the thyroid gland measures 4.6 cm x 1.6 cm x 1.8 cm. There is a homogeneous echotexture. Stable appearance of the scattered nodules. The largest measures 9 mm x 9 mm x 7 mm. ISTHMUS: The isthmus measures 3 mm. The regional lymph nodes are normal. US/Thyroid IMPRESSION: Stable examination. Electronically Signed: Harsh Almeida MD at 14:15 EDT ,
--- NOTE | 2023-10-14 07:24 | US_ITS ---
STUDY: ABDOMINAL ULTRASOUND - RIGHT UPPER QUADRANT REASON FOR VISIT: Female, 63 years old fatty liver TECHNIQUE: Ultrasound evaluation of the right upper quadrant was performed with real-time and static hopper-scale imaging. TECHNICAL QUALITY: Adequate. COMPARISON: Comparison is made with prior study October 19, 2017. FINDINGS: Liver: The liver measures 13.9 cm. There is normal echogenicity of the liver. The bile ducts are within normal limits. There is hepatic color flow. The direction of portal flow is hepatopetal. There is no demonstrated mass lesion. Gallbladder: Normal distended gallbladder. The gallbladder wall measures 2.0 mm. There is a negative sonographic Stuart''s sign. There is no pericholecystic fluid. There are no gallstones. Common Bile Duct (C.B.D.): The common bile duct measures 5.4 mm. Pancreas: Normal size of the head, body and tail of the pancreas. There is increased echogenicity of the pancreas. There is no demonstrated pancreatic mass or cyst. Right Kidney: Normal size of the right kidney. The right kidney measures 9.9 cm x 4.5 cm x 4.4 cm. Normal renal cortex. The right cortex measures 1.3 cm. There is no demonstrated renal mass or cyst. There is no right hydronephrosis. US/Abdomen Limited IMPRESSION: Normal right upper quadrant ultrasound examination. Electronically Signed: Harsh Almeida MD at 13:00 EDT ,
--- NOTE | 2023-10-14 07:24 | CT_ITS ---
STUDY: CT CHEST WITHOUT CONTRAST REASON FOR EXAM: Female, 63 years old. No nodule. RADIATION DOSAGE (If Supplied By Facility): CTDIvol = ( 6.79 ) mGy, DLP = ( 262.84 ) mGycm TECHNIQUE: Transaxial imaging was performed without the administration of intravenous contrast material. Multiplanar coronal and sagittal images were reformatted. Individualized dose optimization techniques were used for this CT. COMPARISON: Comparison is made with prior study dated October 14, 2021. FINDINGS: CHEST Hyperinflation. Emphysematous changes more prominent in the upper lobes. There is a new 9 mm spiculated nodule in the posterior aspect of the right upper lobe as seen on axial image #38 and coronal image #158 new linear scarring in the anterior medial aspect of the right middle lobe. Mild scarring in the peripheral lateral aspect of the right lower lung. Linear scarring in the anterior medial aspect of the left upper lobe. The previously seen 3 mm nodule in the peripheral lateral aspect of the left lower lobe is not seen at this time.. There is no demonstrated pleural abnormality. There are calcifications of the coronary arteries. There are small lymph nodes within the mediastinum, which are normal in size and morphology most compatible with reactive lymph hyperplasia. Normal hilar regions. Normal unenhanced pulmonary arteries. There is atherosclerotic calcification of the aortic arch. There are mild degenerative changes of the thoracic spine. There is no demonstrated abnormality of the visualized upper abdomen. CT/Chest without Contrast IMPRESSION: New 9 mm suspected nodule in the posterior aspect of the right upper lobe as seen on axial image #38 and coronal image #158. Correlation with a PET scan is recommended. Hyperinflation and emphysematous changes. Electronically Signed: Harsh Almeida MD at 10:17 EDT ,
== END | disposition home or self-care (01) ==
LOC: CT 07:22
PROVIDERS: PCP Internal Medicine; Referring Provider Internal Medicine; Visit Provider Internal Medicine
DX: E04.1 Nontoxic single thyroid nodule (principal); R91.1 Solitary pulmonary nodule
CPT/HCPCS: 71250; 76536; 76705

== ENCOUNTER → 2023-11-10 | Outpatient (CLI) | payer OTHER, SELFPAY ==
--- NOTE | 2023-11-10 08:00 | PET_ITS ---
EXAMINATION: FDG PET-CT INDICATIONS: A 63-year-old female with a history of pulmonary nodularity. COMPARISON EXAMINATION: CT of the chest dated 10/14/23. TECHNIQUE: Following the intravenous administration of 14.3 mCi of F-18 deoxyglucose via the right antecubital fossa, multiplanar image acquisitions of the head, neck, chest, abdomen and pelvis to level of mid-thigh, lower extremities obtained at one hour post radiopharmaceutical administration contemporaneously interpreted with the current CT of the head, neck, chest, abdomen and pelvis to level of mid-thigh, lower extremities dated 11/10/[address] of the chest dated 10/14/23 reveal: SERUM GLUCOSE LEVEL: 121 mg/dl. HEIGHT: 62 inches. WEIGHT: 129 lbs. FINDINGS: Head/Neck: There is no evidence of abnormal increased glucose metabolism in the pharyngeal mucosal space, parapharyngeal space, bilateral-lateral and anterior neck, hypopharynx and distribution of the laryngeal structures. The visualized portion of the cerebral cortical-subcortical structures demonstrate symmetric and preserved glucose metabolism. CHEST: There is no quantitative scintigraphic evidence of abnormal increased glucose metabolism within the context of the bilateral hemithorax pulmonary parenchyma, right and left hemithoracic pleural interface, mediastinal structures and thoracic perihilum.? Prominent radiopharmaceutical concentration is identified in the left ventricular myocardium commensurate with the [place]. Pertinent chest CT findings are as follows. Emphysematous changes are defined in the bilateral upper-mid hemithorax pulmonary parenchyma. Parenchymal densities defined in the right and left hemithorax reveal no evidence of quantitatively significant increased FDG uptake. Mediastinal and bilateral axillary soft tissue densities are ametabolic. Abdomen/Pelvis: Normal physiologic distribution of the radiopharmaceutical is apparent in the hepatic and splenic parenchyma, both renal units, bladder and visualized intestinal tract. Diffuse radiopharmaceutical concentration is noted in all four quadrants of the abdomen and pelvis. Abdomen and pelvis CT findings are as follows. Right and left inguinal soft tissue densities are non-glucose avid. There is atherosclerotic calcification defined in the abdominal aorta without evidence of dilatation-aneurysm formation. Pelvic arterial calcification is observed. Calcification is defined in the abdominal aorta and pelvic arterial calcification is observed. Dystrophic calcification is defined in the lower pelvis associated with the uterus. Skeletal: Degenerative changes are noted in the cervical, thoracic and lumbar spine. PET/PET/CT Tumor Base -Thigh Init IMPRESSION: 1. NEGATIVE EXAMINATION. There is no definitive quantitative scintigraphic evidence of viable neoplasm. 2. Parenchymal densities noted primarily in the bilateral hemithorax fulfill no evidence of increased tracer uptake. 3. Metabolic and/or anatomic stability may be ensured in the bilateral hemithorax pulmonary parenchymal abnormality with repeat FDG PET study and/or CT of the thorax in three-six months. (Xiu, Journal of Nuclear Medicine 45:88, P2004 Krishna, Seminars in Thoracic and Cardiovascular Surgery 14:292, 2001) Electronic Signature Don Vega D.O. Accurate Quantification of SUVs for this report are calculated using the exclusive [employer], (U.S. Patent No. [id number] [phone] [id number] [phone] [place] patent [id number] [phone] ). Standardization and correction of the FDG SUV metric exclusively available with [employer] intellectual property, allow for vendor non-specific objective quantitative sequential FDG PET-CT comparison and otherwise unobtainable optimization of the sensitivity and specificity of the examination. [email or web address] Electronically Signed: Don Vega DO at 7:30 EDT ,
== END | disposition home or self-care (01) ==
PROVIDERS: PCP Internal Medicine; Referring Provider Internal Medicine; Visit Provider Internal Medicine
DX: R91.1 Solitary pulmonary nodule (principal)
CPT/HCPCS: 78815; A9552

== ENCOUNTER → 2024-03-09 | Outpatient (CLI) | payer OTHER, SELFPAY ==
--- NOTE | 2024-03-09 08:38 | CT_ITS ---
STUDY: CT CHEST WITHOUT CONTRAST REASON FOR EXAM: Female, [address] OF CHEST WITHOUT CONTRAST Due in March -- Lung nodule RADIATION DOSAGE (If Supplied By Facility): CTDIvol = ( 7.02 ) mGy, DLP = ( 280.51 ) mGycm TECHNIQUE: Transaxial imaging was performed without the administration of intravenous contrast material. Multiplanar coronal and sagittal images were reformatted. Individualized dose optimization techniques were used for this CT. COMPARISON: Comparison is made with prior study of October 14, 2023. FINDINGS: CHEST Stable small benign-appearing bilateral axillary lymph nodes. Mild degree of the biapical pleural thickening. Hyperinflation. Diffuse emphysematous changes with bullous formation more prominent in the upper lobes. The previously seen nodule in the posterior aspect of the right upper lobe has decreased in size as compared to prior study. Presently measures 6.5 mm axial and axial image #40. This most likely represents scarring. Stable linear scarring in the anteromedial aspect of the left upper lobe. There is no demonstrated pleural abnormality. There are calcifications of the coronary arteries. There are small lymph nodes within the mediastinum, which are normal in size and morphology most compatible with reactive lymph hyperplasia. Normal hilar regions. Normal unenhanced pulmonary arteries. There is atherosclerotic calcification of the aortic arch. There are mild degenerative changes of the thoracic spine. There is no demonstrated abnormality of the visualized upper abdomen. CT/Chest without Contrast IMPRESSION: Hyperinflation and emphysematous changes. Interval decrease in size of the nodular density in the posterior-lateral aspect of the right upper lobe. Electronically Signed: Harsh Almeida MD at 15:08 EDT ,
== END | disposition home or self-care (01) ==
PROVIDERS: PCP Internal Medicine; Referring Provider Internal Medicine; Visit Provider Internal Medicine
DX: R91.1 Solitary pulmonary nodule (principal)
CPT/HCPCS: 71250

== ENCOUNTER 2024-06-15 07:42 | Emergency (ER) | payer OTHER, SELFPAY ==
[2024-06-15 07:42] VITALS: BP 138/84; PULSE 89; RESP 22; TEMP 36.2; O2SAT 92
[2024-06-15 07:44] VITALS: BMI 22.1
--- NOTE | 2024-06-15 08:09 | EX.ED.DYSGE1 ---
HPI History of Present Illness Chief Complaint: Nausea/Vomiting/Diarrhea Informant: patient Narrative Narrative: 64-year-old female presenting to the emergency room with a chief complaint of vomiting and abdominal cramps of 2-day duration. Patient states symptoms began on Thursday and she has had difficulty maintaining anything by mouth. She states she has not been taking her meds because she cannot get out of bed. She notes her last bowel movement was Thursday. No bowel movement since. She denies any fever but notes that she gets chilled and hot and sweaty at times. No change in her chronic cough from smoking. She denies any significant rhinorrhea or headache. No rashes. Prior abdominal surgeries include C-sections. [facility] Medical History (Updated 06/15/24 @ 10:[address] Luciano Bermudez, ) Tobacco dependence DM type 2 (diabetes mellitus, type 2) COPD (chronic obstructive pulmonary disease) GERD (gastroesophageal reflux disease) HTN (hypertension) Factor V Leiden Depression HLD (hyperlipidemia) Infected dental caries Home Medications ?Medication ?Instructions ?Recorded ?Last Taken ?Type amlodipine 2.5 mg tablet 2.5 mg PO DAILY blood pressure 10/19/17 07/11/18 History budesonide-formoterol HFA 160 2 puff IH BID copd 10/19/17 07/11/18 History mcg-4.5 mcg/actuation aerosol inhaler (Symbicort) atorvastatin 20 mg tablet (Lipitor) 20 mg PO QHS cholesterol 07/12/18 07/11/18 History empagliflozin 25 mg tablet 25 mg PO DAILY diabetes 07/12/18 07/11/18 History (Jardiance) furosemide 40 mg tablet 40 mg PO DAILY diuretic/water pill 07/12/18 07/11/18 History insulin glargine 100 unit/mL (3 25 units SQ QHS diabetes 07/12/18 07/09/18 History mL) subcutaneous pen (Lantus Solostar U-100 Insulin) lisinopril 5 mg tablet 5 mg PO DAILY blood pressure 07/12/18 07/11/18 History metformin 500 mg tablet,extended 1,000 mg PO DAILY diabetes 07/12/18 07/11/18 History release 24 hr metformin 500 mg tablet,extended 500 mg PO QHS diabetes 07/12/18 07/11/18 History release 24 hr multivitamin (Multiple Vitamins 1 ea PO DAILY supplement 07/12/18 07/11/18 History tablet) potassium chloride 20 mEq 20 meq PO DAILY supplement 07/12/18 07/11/18 History tablet,extended release(part/cryst) (Klor-Con M) sertraline 50 mg tablet 150 mg PO DAILY depression 07/12/18 Unknown History omeprazole 20 mg capsule,delayed 20 mg PO DAILY #30 caps 12/07/19 Unknown Rx release ondansetron 4 mg disintegrating 4 mg PO Q8H PRN PRN Nausea #10 tabs 12/07/19 Unknown Rx tablet risedronate 150 mg tablet 150 mg PO Q30D 12/07/19 Unknown History amoxicillin 500 mg tablet 500 mg PO TID #30 tabs 04/13/24 Unknown Rx dicyclomine 20 mg tablet 20 mg PO TID PRN abdominal pain 06/15/24 Unknown Rx #30 tabs ondansetron 4 mg disintegrating 4 mg PO Q6H PRN PRN Nausea #15 tabs 06/15/24 Unknown Rx tablet Allergy/AdvReac Type Severity Reaction Status Date / Time No Known Allergies Allergy Verified 06/15/24 07:44 Social History Smoking Status: Current every day smoker tobacco type: cigarettes ROS ROS ED Constitutional Constitutional ED: Reports chills and sweats; Denies weight loss Eyes Eyes: Denies change in vision or diplopia ENT ENT ED: Reports other Details: Dry mouth ; Denies ear pain, rhinorrhea or sore throat Cardiovascular Cardiovascular: Denies chest pain, orthopnea, palpitations or racing heartbeat Respiratory/Chest Respiratory/Chest: Reports other Details: Chronic cough no change ; Denies dyspnea or orthopnea Gastrointestinal Gastrointestinal: Reports abdominal pain, nausea, vomiting and other; Denies diarrhea Genitourinary Genitourinary ED: Reports other Details: Decreased urination ; Denies dysuria, hematuria or urinary frequency Musculoskeletal Musculoskeletal: Denies arthralgias or myalgias Integumentary Denies abscess or rash Neurologic Neurologic: Denies headache(s) or weakness Psychiatric Psychiatric: Denies anxiety, depression, suicidal ideation or suicidal thoughts Endocrine Endocrinology: Denies polydipsia, polyphagia or polyuria Allergic/Immunologic Allergic/Immunologic ED: Denies mouth swelling, tongue swelling or urticaria EXAM Physical Exam Narrative Exam Narrative: Patient is laying on her right side moaning Const Vital Signs: 06/15/24 07:42 06/15/24 09:42 Temperature 97.2 F L Temperature Source Temporal Pulse Rate 89 77 Respiratory Rate 22 H 16 Blood Pressure 138/84 H 152/79 H Blood Pressure Mean 102 103 Pulse Ox 92 92 Oxygen Delivery Method Room Air Room Air Positive well nourished and well developed General Appearance ED: well developed and NAD HEENT Reports normocephalic, head/scalp atraumatic and moist mucous membranes Eyes PERRL and EOMs intact bilaterally Neck no lymphadenopathy, supple and no JVD Resp normal respiratory effort and clear to auscultation bilaterally Cardio regular rate, regular rhythm and no murmurs GI GI Narrative: Mild diffuse tenderness to palpation. The abdomen is still soft. Inspection: Negative for abdominal distention Auscultation: hyperactive bowel sounds Palpation: soft; Negative for guarding or rebound tenderness present Back/Spine no CVA tenderness and normal ROM Extremity normal to inspection General Extremety ED: Negative for edema General Extremity: Negative for edema Neuro oriented x3 and CN's II-XII intact bilaterally Sensorium / Orientation: alert Motor Exam: strength 5/5 throughout Psych mental status grossly normal Mood & Affect: Negative for depressed or tearful Skin no rashes or lesions noted and no wounds MDM MDM MDM Narrative Medical decision making narrative: Differential diagnosis includes but not limited to gastritis viral illness gastroenteritis dehydration electrolyte abnormalities pancreatitis biliary colic bowel obstruction Patient's white count 9.3 hemoglobin 16.3 platelet count 284. There is a slight elevation of her hemoglobin compared to baseline may be due to hemoconcentration. Sodium slightly low at 131 potassium 4.1 anion gap of 7 serum CO2 is 28 BUN of 27 creatinine 1.16. Glucose is 257 lipase is 27 normal LFTs urinalysis demonstrates no overt infection. Patient received Zofran and 2 L of IV fluids. Has not had any further vomiting no diarrhea. He is not tachycardic or hypotensive. She states that Zofran did help with the nausea is coming back. Will give her another dose. Unguinal write for her to have some Bentyl and Zofran at home. Would recommend oral hydration return if worsening not improving History & Record Review Discussion w/independent historian: Patient Additional record(s) reviewed:: Prior labs Lab Data Attestation: I reviewed the patient's lab results. Labs: Laboratory Results - last 24 hr 06/15/24 06/15/24 07:58 09:41 WBC 9.3 RBC 6.14 H Hgb 16.3 H Hct 50.2 H MCV 81.8 MCH 26.5 L MCHC 32.5 RDW Std Deviation 43.5 RDW Coeff of Esperanza 14.6 Plt Count 284 MPV 10.3 Immature Gran % (Auto) 0.500 Neut % (Auto) 81.2 H Lymph % (Auto) 11.4 L Dale % (Auto) 6.3 Eos % (Auto) 0.0 Baso % (Auto) 0.6 Absolute Neuts (auto) 7.6 Absolute Lymphs (auto) 1.06 Nucleated RBC % 0 Sodium 131 L Potassium 4.1 Chloride 96 L Carbon Dioxide 28.0 Anion Gap 7 BUN 27 H Creatinine 1.16 H Estim Creat Clear Calc 38.75 Est GFR (MDRD) Af Amer 60 Est GFR (MDRD) Non-Af 50 L BUN/Creatinine Ratio 23.3 H Glucose 257 H Calcium 9.3 Magnesium 2.3 Total Bilirubin 0.80 Direct Bilirubin 0.09 AST 19 ALT 19 Alkaline Phosphatase 92 Total Protein 8.1 Albumin 3.5 Globulin 4.6 H Lipase 27 Urine Color Yellow Urine Clarity Sl. Cloudy Urine pH 6.5 Ur Specific Lyle 1.015 Urine Protein 100 H Urine Glucose (UA) 1000 H Urine Ketones 15 H Urine Occult Blood 50 H Urine Nitrite Negative Urine Bilirubin Negative Urine Urobilinogen Normal Ur Leukocyte Esterase Negative Urine RBC 0-5 SEEN Urine WBC 0 SEEN Ur Squamous Epith Cells 0-5 SEEN Urine Bacteria 1+ Urine Mucus 0 SEEN Discharge Plan Triage Chief Complaint: Nausea/Vomiting/Diarrhea ED Provider: Luciano Bermudez Dx/Rx/DC Orders Clinical Impression: Vomiting, Mild dehydration, Abdominal cramping Instructions: ED Vomiting (Adult) Prescriptions: New dicyclomine 20 mg tablet 20 mg PO TID PRN (Reason: abdominal pain) Qty: 30 0RF ondansetron 4 mg tablet,disintegrating 4 mg PO Q6H PRN PRN (Reason: Nausea) Qty: 15 0RF No Action amoxicillin 500 mg tablet 500 mg PO TID Qty: 30 0RF amlodipine 2.5 MG tablet 2.5 mg PO DAILY Patient Comments: TAKE 1 TABLET DAILY budesonide-formoterol [Symbicort] 1 INHALER inhaler 2 puff IH BID Patient Comments: inhale 2 puffs twice a day furosemide 40 MG tablet 40 mg PO DAILY atorvastatin [Lipitor] 20 MG tablet 20 mg PO QHS potassium chloride [Klor-Con M20] 20 MEQ tablet 20 meq PO DAILY lisinopril 5 MG tablet 5 mg PO DAILY metformin 500 MG tablet 1,000 mg PO DAILY metformin 500 MG tablet 500 mg PO QHS sertraline 50 MG tablet 150 mg PO DAILY insulin glargine [Lantus Solostar U-100 Insulin] 100/ML insulin pen 25 units SQ QHS empagliflozin [Jardiance] 25 MG tablet 25 mg PO DAILY multivitamin [Multiple Vitamins] 1 EACH tablet 1 ea PO DAILY risedronate 150 MG tablet 150 mg PO Q30D omeprazole 20 MG capsule 20 mg PO DAILY Qty: 30 0RF ondansetron 4 MG tablet 4 mg PO Q8H PRN PRN (Reason: Nausea) Qty: 10 0RF Primary Care Provider: Rosemary Danielle Referrals: Rosemary Danielle DO [Primary Care Provider] - As Needed Print Language: Portuguese Disposition Disposition: Home, Self Care
[2024-06-15 08:19] LABS: Absolute Lymphocyte Count 1.06 X10^3/uL (0.83-4.51); Absolute Neutrophil Count 7.6 X10^3/uL (2.0-7.7); Basophil# 0.06 X10^3/uL; Basophil% 0.6 % (0-1); Hematocrit 50.2 % (37-47); Hemoglobin 16.3 g/dL (12.0-15.0); Lymphocyte # 1.06 X10^3/ul (0.83-4.51); Lymphocyte % 11.4 % (19-41); Mean Corp Hgb Conc 32.5 g/dL (32-36); Mean Corpuscular Hgb 26.5 pg (27.0-32.0); Mean Corpuscular Volume 81.8 fL (81-99); Mean Platelet Vol. 10.3 fl (6.2-12.0); Monocyte# 0.59 X10^3/uL; Monocyte% 6.3 % (0-10); NRBC Flagged by Analyzer 0 % (0-5); Neutrophil # 7.55 X10^3/uL (2.7-7.7); Neutrophil % 81.2 % (47-70); Platelet Count 284 K/mm3 (150-450); RBC Distribution Width CV 14.6 % (11.6-14.6); RBC Distribution Width SD 43.5 fl (35.1-43.9); Red Blood Count 6.14 M/mm3 (4.2-5.4); White Blood Count 9.3 K/mm3 (4.4-11.0)
[2024-06-15] MEDS: 0.9% Normal Saline (1000mL) 1,000 ML 1000 ML IV (08:19)
[2024-06-15] MEDS: Ondansetron 4 MG/2 ML Vial IV ×2 (08:19→10:34)
[2024-06-15 08:56] LABS: AST(SGOT) 19 U/L (15-37); Alanine Aminotransfer ALT/SGPT 19 U/L (13-56); Albumin, Serum 3.5 g/dL (3.2-5.0); Alkaline Phosphatase 92 U/L (45-117); Anion Gap 7 (5-15); BUN 27 mg/dL (7-18); BUN/Creat Ratio 23.3 RATIO (10-20); Bilirubin, Direct 0.09 mg/dL (0.00-0.30); Calcium,Total 9.3 mg/dL (8.5-10.1); Chloride 96 mmol/L (98-107); Creatinine, Serum 1.16 mg/dL (0.55-1.02); EST Glomerular Filtration Rate 50 mL/min (>60); Est Glom Filt Rate - Afr Amer 60 mL/min (>60); Estimated Creatinine Clearance 38.75 ml/min; Globulin 4.6 g/dL (2.2-4.2); Glucose 257 mg/dL (74-106); Lipase 27 U/L (13-75); Magnesium 2.3 mg/dL (1.6-2.6); Potassium 4.1 mmol/L (3.5-5.1); Protein, Total 8.1 g/dL (6.4-8.2); Sodium Level 131 mmol/L (136-145)
[2024-06-15 09:42] VITALS: BP 152/79; PULSE 77; RESP 16; O2SAT 92
[2024-06-15 09:44] LABS: Mucous, Urine 0 SEEN /hpf (<or=2+); White Blood Cells 0 SEEN /hpf (0-5)
[2024-06-15] MEDS: 0.9% Normal Saline (1000mL) 1,000 ML 999 ML IV (09:44)
[2024-06-15 09:46] LABS: Color, Urine Yellow (Yellow); Glucose, Dipstick 1000 mg/dl (Normal); Ketone-Dipstick 15 mg/dl (Negative); Leukocyte Esterase-Dipstick Negative /ul (Negative); Nitrite-Dipstick Negative (Negative); Occult Blood-Urine 50 /ul (Negative); Protein-Dipstick 100 mg/dl (Negative); Specific Gravity, Urine 1.015 (1.002-1.030); Urine Bilirubin Dipstick Negative (Negative); Urine Clarity Sl. Cloudy (Clear); Urine Urobilinogen Normal (Normal); Urine pH 6.5 (5.0 - 8.0)
[2024-06-15 09:54] LABS: Red Blood Cells-Urine 0-5 SEEN /hpf (0-5); Squamous Epithelial Cells - UA 0-5 SEEN /hpf (5-10)
[2024-06-15 09:55] LABS: Bacteria 1+ /hpf (None Seen)
[2024-06-15 10:38] VITALS: BP 148/76; PULSE 74; RESP 16; TEMP 36.8; O2SAT 94
== END 2024-06-15 10:39 | disposition home or self-care (01) ==
PROVIDERS: Emergency Provider Emergency Medicine; PCP Internal Medicine; Visit Provider Emergency Medicine
DX: R11.2 Nausea with vomiting, unspecified (principal); J44.9 Chronic obstructive pulmonary disease, unspecified; E11.9 Type 2 diabetes mellitus without complications; Z79.4 Long term (current) use of insulin; R10.9 Unspecified abdominal pain; R19.7 Diarrhea, unspecified; E86.0 Dehydration; I10 Essential (primary) hypertension; E78.5 Hyperlipidemia, unspecified; K21.9 Gastro-esophageal reflux disease without esophagitis; D68.51 Activated protein C resistance; F32.A Depression, unspecified; F17.210 Nicotine dependence, cigarettes, uncomplicated; Z79.899 Other long term (current) drug therapy; Z79.84 Long term (current) use of oral hypoglycemic drugs
CPT/HCPCS: 80048; 80076; 81001; 83690; 83735; 85025; 96361; 96374; 96376; 99283; A4216; J2405

== ENCOUNTER 2024-06-19 10:17 | Inpatient (IN) | payer OTHER, SELFPAY ==
[2024-06-19] VITALS (8 sets, daily range): BP systolic 81–136; BP diastolic 59–72; PULSE 75–89; RESP 16–22; TEMP 36.4–37.2; O2SAT 85–98; BMI 24.2; BMI 21.4
--- NOTE | 2024-06-19 11:14 | CT_ITS ---
HISTORY: pain, constipation. TECHNIQUE: Helically acquired images were obtained of the abdomen and pelvis after the intravenous administration of 100 mL Isovue-370. A radiation dose optimization technique was used for this scan. 371 images. COMPARISON: PET-CT 11/10/2023. FINDINGS: LOWER CHEST: Mild emphysema with 2 mm lower lobe pulmonary nodules again seen. New 4 mm groundglass nodule in the left lower lobe on image 3/102. BOWEL: Bowel including appendix nondilated. Moderate stool in the colon. PERITONEUM: No significant ascites. LIVER: No enhancing mass. Fatty infiltration with sparing at the gallbladder fossa. GALLBLADDER/BILIARY TREE: Gallbladder present. SPLEEN/PANCREAS: Homogeneous and nonenlarged. ADRENAL GLANDS/KIDNEYS: Unremarkable. VESSELS: Mild atherosclerosis. Mildly ectatic 2.3 cm infrarenal abdominal aorta. Chronic distention of the left gonadal vein with mixing artifact limiting evaluation. PELVIC ORGANS: Enlarged lobulated uterus with calcified lesions. Obscuration of the left adnexa. ABDOMINAL WALL: Collateral vessels again seen in the left groin. BONES: Degenerative change of the lower lumbar spine. CT/Abdomen/Pelvis W IV Cont ONLY IMPRESSION: Mild pulmonary emphysema with pulmonary nodules measuring up to 4 mm. Presence of pulmonary emphysema on CT is an independent risk factor for lung cancer. Consider LDCT lung cancer screening in the future. Moderate stool in the colon. Hepatic steatosis. Enlarged leiomyomatous uterus with calcified lesions, obscuring the left ovary. Electronically Signed: Lavern Escalera MD at 13:34 EST ,
--- NOTE | 2024-06-19 11:16 | EDS_ITS ---
HPI <GIANFRANCO Rivero - Last Filed: 06/19/24 17:22> History of Present Illness Chief Complaint: Abd Pain Narrative Narrative: 64-year-old female with past medical history of HTN, HLD, COPD, DM 2 presents with chief complaint of constipation x 1 week. She states she was here 4 days ago for vomiting and abdominal cramps and had normal blood work. She has not had vomiting since she left but she still has generalized abdominal cramping and has not had a bowel movement. This morning she had the urge to go and had to manually disimpact a small piece of stool. She tried a fleets enema but did not have another full bowel movement. She is passing gas. She is tolerating p.o. intake. She has a history of x 3 but no other surgeries and no history of bowel obstruction. She has never had a colonoscopy. [facility] <GIANFRANCO Rivero - Last Filed: 06/19/24 17:22> [facility] Medical History Anxiety and depression Tobacco dependence DM type 2 (diabetes mellitus, type 2) COPD (chronic obstructive pulmonary disease) GERD (gastroesophageal reflux disease) HTN (hypertension) Factor V Leiden HLD (hyperlipidemia) Home Medications ?Medication ?Instructions ?Recorded ?Last Taken ?Type amlodipine 2.5 mg tablet 2.5 mg PO DAILY blood pressure 10/19/17 06/18/24 History atorvastatin 20 mg tablet (Lipitor) 20 mg PO QHS cholesterol 07/12/18 06/18/24 History insulin glargine 100 unit/mL (3 30 units subcut BID diabetes 07/12/18 06/18/24 History mL) subcutaneous pen (Lantus Solostar U-100 Insulin) lisinopril 5 mg tablet 5 mg PO DAILY blood pressure 07/12/18 06/18/24 History sertraline 50 mg tablet 150 mg PO DAILY depression 07/12/18 06/18/24 History ondansetron 4 mg disintegrating 4 mg PO Q8H PRN PRN Nausea #10 tabs 12/07/19 Unknown Rx tablet dicyclomine 20 mg tablet 20 mg PO TID PRN abdominal pain 06/15/24 06/18/24 Rx #30 tabs ondansetron 4 mg disintegrating 4 mg PO Q6H PRN PRN Nausea #15 tabs 06/15/24 Unknown Rx tablet apixaban 2.5 mg tablet (Eliquis) 2.5 mg PO BID 06/19/24 06/19/24 History Allergy/AdvReac Type Severity Reaction Status Date / Time No Known Allergies Allergy Verified 06/19/24 10:22 Surgical History H/O section Social History household members: spouse Smoking Status: Current every day smoker tobacco type: cigarettes Smoking packs per day: 1 Smoking cigarettes per day: 20.0 alcohol intake: current alcohol intake frequency: holidays/special occasions only substance use type: does not use EXAM <GIANFRANCO Rivero - Last Filed: 06/19/24 17:22> Physical Exam Narrative Exam Narrative: CONST: Patient sitting in no acute distress. EYES: Normal inspection. NECK: Normal inspection. RESP: No respiratory distress, CTAB. CVS: Regular rate and rhythm, no murmur, no gallop. ABD: Soft with epigastric and periumbilical tenderness, no guarding or rebound, nondistended, no hepatosplenomegaly. Back: Normal inspection, no CVA tenderness. LANE: No stool in rectal vault, no external hemorrhoids or signs of bleeding. SKIN: Color normal, no rash, warm, dry, intact. EXTREMITIES: Normal appearance, no pedal edema. NEURO: Alert and answering questions appropriately. PSYCH: Normal affect. Const Vital Signs: 06/19/24 10:18 06/19/24 10:20 06/19/24 12:20 Temperature 97.5 F L 97.5 F L 98 F Temperature Source Oral Oral Temporal Pulse Rate 87 87 89 Respiratory Rate 18 16 18 Blood Pressure 81/59 L 81/59 L 118/69 Blood Pressure Mean 66 66 85 Pulse Ox 90 93 98 Oxygen Delivery Method Room Air Room Air Room Air 06/19/24 13:00 06/19/24 14:00 Temperature 97.6 F L 97.6 F L Temperature Source Temporal Temporal Pulse Rate 89 78 Respiratory Rate 16 16 Blood Pressure 136/70 H 107/72 Blood Pressure Mean 92 83 Pulse Ox 90 90 Oxygen Delivery Method Room Air Room Air <Dr. Clifford Hearn DO - Last Filed: 06/19/24 16:16> Physical Exam Const Vital Signs: 06/19/24 10:18 06/19/24 10:20 06/19/24 12:20 Temperature 97.5 F L 97.5 F L 98 F Temperature Source Oral Oral Temporal Pulse Rate 87 87 89 Respiratory Rate 18 16 18 Blood Pressure 81/59 L 81/59 L 118/69 Blood Pressure Mean 66 66 85 Pulse Ox 90 93 98 Oxygen Delivery Method Room Air Room Air Room Air 06/19/24 13:00 06/19/24 14:00 Temperature 97.6 F L 97.6 F L Temperature Source Temporal Temporal Pulse Rate 89 78 Respiratory Rate 16 16 Blood Pressure 136/70 H 107/72 Blood Pressure Mean 92 83 Pulse Ox 90 90 Oxygen Delivery Method Room Air Room Air MDM <GIANFRANCO Rivero - Last Filed: 06/19/24 17:22> [facility] Narrative Medical decision making narrative: 64-year-old female was evaluated for 1 week of nausea and vomiting, abdominal pain, and constipation. She appears uncomfortable but nontoxic. She was hypotensive 81/51 with otherwise normal vital signs. She has dry mucous membranes. Abdomen is soft with periumbilical and epigastric/RUQ tenderness. Labs show WBC of 11.9, hemoconcentration at 16.2, chronic hyponatremia at 128, creatinine 1.37, Leukos 240, normal LFTs and lipase. CT scan showed moderate stool in the colon but no other acute findings. Since patient is tender in the RUQ a gallbladder ultrasound was ordered. It shows biliary sludge with gallbladder wall thickening raising concern for acalculous cholecystitis. CBD is mildly dilated to 8 mm. I discussed the case with on-call surgeon Dr. Ryan who agreed to admit the patient under his service, covered with antibiotics, and will order HIDA scan tomorrow. Differential includes but not limited to constipation, obstruction, cholecystitis, GERD, gastritis Consults: General Surgery I have personally performed a face to face assessment of the patient and have reviewed the SIOBHAN Note. I performed a substantive portion of the visit including all aspects of the following. My montano findings include: History is [patient presents with abdominal pain as her week ago. She was seen in the emergency department 4 days ago and was given fluids and had blood work but no imaging. She states eventually the nausea improved and last night she states that some of the discomfort had improved as well and was able to get 4 hours of sleep. This morning she had some dry heaves and continues to have abdominal pain. She has not had a bowel movement in over a week. This morning she had a small piece of stool that was extruding from her rectum that she was able to remove and she tried an enema but could not get much fluid in to the rectum. She denies fevers although she had some sweats a few days ago. Prior abdominal surgeries include C-sections but she still has her gallbladder and appendix. She describes the pain as right upper abdomen. Food does not really seem to make her pain worse.] Exam is [HEENT-PERRLA, EOMI. Cranial nerves II through XII grossly intact. TMs clear. Mucous membranes moist. No adenopathy. Cardiovascular-regular rate and rhythm without murmur or ectopy Lungs-clear to auscultation, chest wall stable without crepitus or subcu emphysema Abdomen-somewhat diminished bowel sounds. Patient has tenderness palpation over the right upper quadrant with a positive Stuart sign. Patient has a mild guarding. There is no rebound or rigidity. No significant tenderness over McBurney's. Extremities-intact ?4, normal range of motion, normal pulses, atraumatic] Medical Decison Making [patient presents with upper abdominal pain as well as nausea and dry heaves. Initially mildly hypotensive. IV line established on arrival. She had a recent visit to the ER but no imaging. She was ordered a liter normal same fluid bolus. She has a positive Stuart sign on exam. Ended in the differential would be acute cholecystitis. Other acute intra-abdominal process also in the differential such as bowel obstruction or colitis. CBC with differential obtained showed a slightly elevated white count 11.9 with hemoglobin 16.2 and platelet count of 267. Chemistries unremarkable. BUN 22 and creatinine 1.37. LFTs were normal. Lactate normal at 0.8. Lipase normal at 31. CT scan of the abdomen pelvis showed no acute significant findings. Patient had a gallbladder ultrasound that showed sludge in the gallbladder with a thickened gallbladder wall and slightly dilated common bile duct. Positive Stuart sign was noted and in the differential would be a calculus cholecystitis. We discussed case with general surgeon on-call and we were asked admit the medicine and obtain a HIDA scan tomorrow for further evaluation. Case will be discussed with hospitalist to evaluate patient for admission] Other additions or changes: [None] Lab Data Labs: Laboratory Results - last 24 hr 06/19/24 06/19/24 06/19/24 10:32 11:49 11:49 WBC 11.9 H RBC 6.07 H Hgb 16.2 H Hct 49.1 H MCV 80.9 L MCH 26.7 L MCHC 33.0 RDW Std Deviation 40.8 RDW Coeff of Esperanza 13.8 Plt Count 267 MPV 10.4 Immature Gran % (Auto) 0.500 Neut % (Auto) 78.7 H Lymph % (Auto) 12.6 L [place] % (Auto) 7.5 Eos % (Auto) 0.3 Baso % (Auto) 0.4 Absolute Neuts (auto) 9.4 H Absolute Lymphs (auto) 1.51 Nucleated RBC % 0 Sodium 128 L Potassium 3.9 Chloride 92 L Carbon Dioxide 30.0 Anion Gap 6 BUN 22 H Creatinine 1.37 H Estim Creat Clear Calc 32.81 Est GFR (MDRD) Af Amer 50 L Est GFR (MDRD) Non-Af 41 L BUN/Creatinine Ratio 16.1 Glucose 240 H Lactic Acid 0.8 Cancelled Calcium 8.5 Total Bilirubin 0.60 AST 19 ALT 18 Alkaline Phosphatase 81 Total Protein 7.0 Albumin 3.2 Globulin 3.8 Albumin/Globulin Ratio 0.8 L Lipase 31 Urine Color Urine Clarity Urine pH Ur Specific [place] Urine Protein Urine Glucose (UA) Urine Ketones Urine Occult Blood Urine Nitrite Urine Bilirubin Urine Urobilinogen Ur Leukocyte Esterase Urine RBC Urine WBC Ur Squamous Epith Cells Urine Bacteria Urine Mucus 06/19/24 12:26 WBC RBC Hgb Hct MCV MCH MCHC RDW Std Deviation RDW Coeff of [place]per[place] Plt Count MPV Immature Gran % (Auto) Neut % (Auto) Lymph % (Auto) [place] % (Auto) Eos % (Auto) Baso % (Auto) Absolute Neuts (auto) Absolute Lymphs (auto) Nucleated RBC % Sodium Potassium Chloride Carbon Dioxide Anion Gap BUN Creatinine Estim Creat Clear Calc Est GFR (MDRD) Af Amer Est GFR (MDRD) Non-Af BUN/Creatinine Ratio Glucose Lactic Acid Calcium Total Bilirubin AST ALT Alkaline Phosphatase Total Protein Albumin Globulin Albumin/Globulin Ratio Lipase Urine Color Yellow Urine Clarity Clear Urine pH 6.0 Ur Specific [place] 1.010 Urine Protein 30 H Urine Glucose (UA) 250 H Urine Ketones Negative Urine Occult Blood 25 H Urine Nitrite Negative Urine Bilirubin Negative Urine Urobilinogen Normal Ur Leukocyte Esterase Negative Urine RBC 0-5 SEEN Urine WBC 0-5 SEEN Ur Squamous Epith Cells 0-5 SEEN Urine Bacteria 0 SEEN Urine Mucus 0 SEEN Radiography Diagnostic Testing: Clinical Impression(s) from Imaging Studies Abdomen/Pelvis CT 06/19/24 11:14 IMPRESSION: Mild pulmonary emphysema with pulmonary nodules measuring up to 4 mm. Presence of pulmonary emphysema on CT is an independent risk factor for lung cancer. Consider LDCT lung cancer screening in the future. Moderate stool in the colon. Hepatic steatosis. Enlarged leiomyomatous uterus with calcified lesions, obscuring the left ovary. Electronically Signed: Lavern Escalera MD at 13:34 EST , Gallbladder Ultrasound 06/19/24 13:40 IMPRESSION: No sonographic evidence of cholelithiasis. Biliary sludge with gallbladder wall thickening and positive sonographic Stuart sign, raising the possibility of acalculus cholecystitis in the appropriate clinical setting. Mildly dilated common bile duct. Consider correlation with ERCP or MRCP to evaluate for choledocholithiasis or other obstructing lesion. Hepatic steatosis. Electronically Signed: Lavern Escalera MD at 15:52 EST , <Dr. Clifford Hearn, DO - Last Filed: 06/19/24 16:16> [facility] Narrative Medical decision making narrative: 64-year-old female was evaluated for 1 week of nausea and vomiting, abdominal pain, and constipation. She appears uncomfortable but nontoxic. She was hypotensive 81/51 with otherwise normal vital signs. She has dry mucous membranes. Abdomen is soft with periumbilical and epigastric/RUQ tenderness. Labs show WBC of 11.9, hemoconcentration at 16.2, chronic hyponatremia at 128, creatinine 1.37, Leukos 240, normal LFTs and lipase. CT scan showed moderate stool in the colon but no other acute findings. Since patient is tender in the RUQ a gallbladder ultrasound was ordered. It shows biliary sludge with gallbladder wall thickening raising concern for acalculous cholecystitis. CBD is mildly dilated to 8 mm. I discussed the case with on-call surgeon Dr. Ryan who recommended admission to medicine and HIDA scan tomorrow. If it is positive he can remove her gallbladder tomorrow. I have personally performed a face to face assessment of the patient and have reviewed the SIOBHAN Note. I performed a substantive portion of the visit including all aspects of the following. My montano findings include: History is [patient presents with abdominal pain as her week ago. She was seen in the emergency department 4 days ago and was given fluids and had blood work but no imaging. She states eventually the nausea improved and last night she states that some of the discomfort had improved as well and was able to get 4 hours of sleep. This morning she had some dry heaves and continues to have abdominal pain. She has not had a bowel movement in over a week. This morning she had a small piece of stool that was extruding from her rectum that she was able to remove and she tried an enema but could not get much fluid in to the rectum. She denies fevers although she had some sweats a few days ago. Prior abdominal surgeries include C-sections but she still has her gallbladder and appendix. She describes the pain as right upper abdomen. Food does not really seem to make her pain worse.] Exam is [HEENT-PERRLA, EOMI. Cranial nerves II through XII grossly intact. TMs clear. Mucous membranes moist. No adenopathy. Cardiovascular-regular rate and rhythm without murmur or ectopy Lungs-clear to auscultation, chest wall stable without crepitus or subcu emphysema Abdomen-somewhat diminished bowel sounds. Patient has tenderness palpation over the right upper quadrant with a positive Stuart sign. Patient has a mild guarding. There is no rebound or rigidity. No significant tenderness over McBurney's. Extremities-intact ?4, normal range of motion, normal pulses, atraumatic] Medical Decison Making [patient presents with upper abdominal pain as well as nausea and dry heaves. Initially mildly hypotensive. IV line established on arrival. She had a recent visit to the ER but no imaging. She was ordered a liter normal same fluid bolus. She has a positive Stuart sign on exam. Ended in the differential would be acute cholecystitis. Other acute intra-abdominal process also in the differential such as bowel obstruction or colitis. CBC with differential obtained showed a slightly elevated white count 11.9 with hemoglobin 16.2 and platelet count of 267. Chemistries unremarkable. BUN 22 and creatinine 1.37. LFTs were normal. Lactate normal at 0.8. Lipase normal at 31. CT scan of the abdomen pelvis showed no acute significant findings. Patient had a gallbladder ultrasound that showed sludge in the gallbladder with a thickened gallbladder wall and slightly dilated common bile duct. Positive Stuart sign was noted and in the differential would be a calculus cholecystitis. We discussed case with general surgeon on-call and we were asked admit the medicine and obtain a HIDA scan tomorrow for further evaluation. Case will be discussed with hospitalist to evaluate patient for admission] Other additions or changes: [None] Lab Data Labs: Laboratory Results - last 24 hr 06/19/24 06/19/24 06/19/24 10:32 11:49 11:49 WBC 11.9 H RBC 6.07 H Hgb 16.2 H Hct 49.1 H MCV 80.9 L MCH 26.7 L MCHC 33.0 RDW Std Deviation 40.8 RDW Coeff of Esperanza 13.8 Plt Count 267 MPV 10.4 Immature Gran % (Auto) 0.500 Neut % (Auto) 78.7 H Lymph % (Auto) 12.6 L [place] % (Auto) 7.5 Eos % (Auto) 0.3 Baso % (Auto) 0.4 Absolute Neuts (auto) 9.4 H Absolute Lymphs (auto) 1.51 Nucleated RBC % 0 Sodium 128 L Potassium 3.9 Chloride 92 L Carbon Dioxide 30.0 Anion Gap 6 BUN 22 H Creatinine 1.37 H Estim Creat Clear Calc 32.81 Est GFR (MDRD) Af Amer 50 L Est GFR (MDRD) Non-Af 41 L BUN/Creatinine Ratio 16.1 Glucose 240 H Lactic Acid 0.8 Cancelled Calcium 8.5 Total Bilirubin 0.60 AST 19 ALT 18 Alkaline Phosphatase 81 Total Protein 7.0 Albumin 3.2 Globulin 3.8 Albumin/Globulin Ratio 0.8 L Lipase 31 Urine Color Urine Clarity Urine pH Ur Specific [place] Urine Protein Urine Glucose (UA) Urine Ketones Urine Occult Blood Urine Nitrite Urine Bilirubin Urine Urobilinogen Ur Leukocyte Esterase Urine RBC Urine WBC Ur Squamous Epith Cells Urine Bacteria Urine Mucus 06/19/24 12:26 WBC RBC Hgb Hct MCV MCH MCHC RDW Std Deviation RDW Coeff of [place] Plt Count MPV Immature Gran % (Auto) Neut % (Auto) Lymph % (Auto) [place] % (Auto) Eos % (Auto) Baso % (Auto) Absolute Neuts (auto) Absolute Lymphs (auto) Nucleated RBC % Sodium Potassium Chloride Carbon Dioxide Anion Gap BUN Creatinine Estim Creat Clear Calc Est GFR (MDRD) Af Amer Est GFR (MDRD) Non-Af BUN/Creatinine Ratio Glucose Lactic Acid Calcium Total Bilirubin AST ALT Alkaline Phosphatase Total Protein Albumin Globulin Albumin/Globulin Ratio Lipase Urine Color Yellow Urine Clarity Clear Urine pH 6.0 Ur Specific [place] 1.010 Urine Protein 30 H Urine Glucose (UA) 250 H Urine Ketones Negative Urine Occult Blood 25 H Urine Nitrite Negative Urine Bilirubin Negative Urine Urobilinogen Normal Ur Leukocyte Esterase Negative Urine RBC 0-5 SEEN Urine WBC 0-5 SEEN Ur Squamous Epith Cells 0-5 SEEN Urine Bacteria 0 SEEN Urine Mucus 0 SEEN Radiography Diagnostic Testing: Clinical Impression(s) from Imaging Studies Abdomen/Pelvis CT 06/19/24 11:14 IMPRESSION: Mild pulmonary emphysema with pulmonary nodules measuring up to 4 mm. Presence of pulmonary emphysema on CT is an independent risk factor for lung cancer. Consider LDCT lung cancer screening in the future. Moderate stool in the colon. Hepatic steatosis. Enlarged leiomyomatous uterus with calcified lesions, obscuring the left ovary. Electronically Signed: Lavern Escalera MD at 13:34 EST , Gallbladder Ultrasound 06/19/24 13:40 IMPRESSION: No sonographic evidence of cholelithiasis. Biliary sludge with gallbladder wall thickening and positive sonographic Stuart sign, raising the possibility of acalculus cholecystitis in the appropriate clinical setting. Mildly dilated common bile duct. Consider correlation with ERCP or MRCP to evaluate for choledocholithiasis or other obstructing lesion. Hepatic steatosis. Electronically Signed: Lavern Escalera MD at 15:52 EST , Discharge Plan Dx/Rx/DC Orders Clinical Impression: Abdominal pain, Vomiting, Constipation, Gallbladder sludge, Thickening of wall of gallbladder Disposition Disposition: Acute Care Hospital [facility] Discharge Date/Time: 06/19/24 17:13
[2024-06-19] MEDS: 0.9% Normal Saline (1000mL) 1,000 ML 999 ML IV (11:34)
[2024-06-19 12:03] LABS: Absolute Lymphocyte Count 1.51 X10^3/uL (0.83-4.51); Absolute Neutrophil Count 9.4 X10^3/uL (2.0-7.7); Basophil# 0.05 X10^3/uL; Basophil% 0.4 % (0-1); Eosinophil# 0.04 X10^3/uL; Eosinophils% 0.3 % (0-5); Hematocrit 49.1 % (37-47); Hemoglobin 16.2 g/dL (12.0-15.0); Lymphocyte # 1.51 X10^3/ul (0.83-4.51); Lymphocyte % 12.6 % (19-41); Mean Corpuscular Hgb 26.7 pg (27.0-32.0); Mean Corpuscular Volume 80.9 fL (81-99); Mean Platelet Vol. 10.4 fl (6.2-12.0); Monocyte# 0.89 X10^3/uL; Monocyte% 7.5 % (0-10); NRBC Flagged by Analyzer 0 % (0-5); Neutrophil # 9.39 X10^3/uL (2.7-7.7); Neutrophil % 78.7 % (47-70); Platelet Count 267 K/mm3 (150-450); RBC Distribution Width CV 13.8 % (11.6-14.6); RBC Distribution Width SD 40.8 fl (35.1-43.9); Red Blood Count 6.07 M/mm3 (4.2-5.4); White Blood Count 11.9 K/mm3 (4.4-11.0)
[2024-06-19 12:12] LABS: ALB/GLOB Ratio 0.8 RATIO (0.9-2.4); AST(SGOT) 19 U/L (15-37); Alanine Aminotransfer ALT/SGPT 18 U/L (13-56); Albumin, Serum 3.2 g/dL (3.2-5.0); Alkaline Phosphatase 81 U/L (45-117); Anion Gap 6 (5-15); BUN 22 mg/dL (7-18); BUN/Creat Ratio 16.1 RATIO (10-20); Calcium,Total 8.5 mg/dL (8.5-10.1); Chloride 92 mmol/L (98-107); Creatinine, Serum 1.37 mg/dL (0.55-1.02); EST Glomerular Filtration Rate 41 mL/min (>60); Est Glom Filt Rate - Afr Amer 50 mL/min (>60); Estimated Creatinine Clearance 32.81 ml/min; Globulin 3.8 g/dL (2.2-4.2); Glucose 240 mg/dL (74-106); Lipase 31 U/L (13-75); Potassium 3.9 mmol/L (3.5-5.1); Sodium Level 128 mmol/L (136-145)
[2024-06-19 12:17] LABS: Lactic Acid 0.8 mmol/L (0.4-1.9)
[2024-06-19 12:30] LABS: Bacteria 0 SEEN /hpf (None Seen); Mucous, Urine 0 SEEN /hpf (<or=2+)
[2024-06-19 12:33] LABS: Color, Urine Yellow (Yellow); Glucose, Dipstick 250 mg/dl (Normal); Ketone-Dipstick Negative (Negative); Leukocyte Esterase-Dipstick Negative /ul (Negative); Nitrite-Dipstick Negative (Negative); Occult Blood-Urine 25 /ul (Negative); Protein-Dipstick 30 mg/dl (Negative); Urine Bilirubin Dipstick Negative (Negative); Urine Clarity Clear (Clear); Urine Urobilinogen Normal (Normal)
[2024-06-19 12:48] LABS: Red Blood Cells-Urine 0-5 SEEN /hpf (0-5); Squamous Epithelial Cells - UA 0-5 SEEN /hpf (5-10); White Blood Cells 0-5 SEEN /hpf (0-5)
--- NOTE | 2024-06-19 13:40 | US_ITS ---
HISTORY: abdominal pain, RUQ. TECHNIQUE: Delacruz scale and color doppler imaging was performed of the right upper quadrant. 167 images. COMPARISON: CT same day. FINDINGS: LIVER: 15.1 cm in length. Mildly echogenic without focal lesion demonstrated. No intrahepatic ductal dilatation. MAIN PORTAL VEIN: Patent with flow in the appropriate direction. COMMON BILE DUCT: 8 mm in diameter. GALLBLADDER: Sludge without shadowing gallstones. 5 mm wall thickness. No pericholecystic fluid. Sonographic Stuart sign positive. PANCREAS: Visualized proximal portion unremarkable. RIGHT KIDNEY: 9.2 cm in length with a cortical thickness 1.7 cm. No hydronephrosis or gross renal mass demonstrated. US/Gallbladder IMPRESSION: No sonographic evidence of cholelithiasis. Biliary sludge with gallbladder wall thickening and positive sonographic Stuart sign, raising the possibility of acalculus cholecystitis in the appropriate clinical setting. Mildly dilated common bile duct. Consider correlation with ERCP or MRCP to evaluate for choledocholithiasis or other obstructing lesion. Hepatic steatosis. Electronically Signed: Lavern Escalera MD at 15:52 EST ,
--- NOTE | 2024-06-19 16:24 | ED.RN ---
this nurse was in a pt room when this pt walked out of room in her gown with her purse and coat. this nurse told the pt she was not allowed to leave with her iv in. pt stated she wasnt leaving she was ggoing to take a smoke break. this nurse then explained she is still not permitted to exit the building with her iv in. pt went back into room and refused to wear monitor.
--- NOTE | 2024-06-19 16:35 | HP.PCM.HOS_ITS ---
HPI - General General Date of Admission: 06/19/24 Date of Service: 06/19/24 Chief Complaint: Constipation, recent N/V, abd discomfort. HPI Narrative The patient is a 64 y/o F w/ PMHx: CKD stage III per GFR trending with unclear subtype, Chronic hyponatremia, HTN, HLD, Anxiety and Depression, COPD, Tobacco use, Diabetes mellitus type II, Factor V Leiden deficiency on Eliquis chronically who presents to the [facility] ED on 06/19/24 with history of constipation for at least last week with 4 days previously episodes of nausea and emesis with abdominal cramping with unremarkable evaluation at that time with noted stool impaction this a.m. with administration of fleets enema however it was not significantly effective although she does report she has been passing stool and tolerating intake but given this prompted ED evaluation to be cautious. In the ED upon evaluation the patient did have right upper quadrant pain prompting eventual further gallbladder/liver evaluation. Workup in the ED included T97.5, heart rate 87, BP initially 81/59, respiratory rate 18, 90% on room air with most recent repeat vitals T97.6, heart rate 78, BP 107/72, respiratory rate 16, 90% on room air, CBC with WBC 11.9, hemoglobin 16.2, MCV 80.9, platelet 267 with left shift, CMP with sodium 128, chloride 92, BUN/: 22/1.37, GFR 41, glucose 240, lactic acid 0.8, hepatic profile unremarkable, lipase 31, urinalysis with specific gravity 1.010, urine protein 30, glucose 250, occult blood 25, negative nitrite, negative leukocyte esterase with no evidence of urinary tract infection, CT abdomen and pelvis with mild pulmonary emphysema with pulmonary nodules measuring up to 4 mm, moderate stool in the colon, hepatic steatosis, enlarged leiomyomatous uterus with calcified lesions obscuring the left ovary, gallbladder ultrasound with no evidence of cholelithiasis, biliary sludge with gallbladder wall thickening and positive sonographic Stuart sign raising the suspicion of acalculus cholecystitis in the appropriate clinical setting, mildly dilated common bile duct, hepatic steatosis. In the ED patient ministered 1 L normal saline. ED discussed case with general surgery who recommended follow-up HIDA scan. [facility] Medical History Anxiety and depression Tobacco dependence DM type 2 (diabetes mellitus, type 2) COPD (chronic obstructive pulmonary disease) GERD (gastroesophageal reflux disease) HTN (hypertension) Factor V Leiden HLD (hyperlipidemia) Home Medications ?Medication ?Instructions ?Recorded ?Last Taken ?Type amlodipine 2.5 mg tablet 2.5 mg PO DAILY blood pressure 10/19/17 06/18/24 History atorvastatin 20 mg tablet (Lipitor) 20 mg PO QHS cholesterol 07/12/18 06/18/24 History insulin glargine 100 unit/mL (3 30 units subcut BID diabetes 07/12/18 06/18/24 History mL) subcutaneous pen (Lantus Solostar U-100 Insulin) lisinopril 5 mg tablet 5 mg PO DAILY blood pressure 07/12/18 06/18/24 History sertraline 50 mg tablet 150 mg PO DAILY depression 07/12/18 06/18/24 History ondansetron 4 mg disintegrating 4 mg PO Q8H PRN PRN Nausea #10 tabs 12/07/19 Unknown Rx tablet dicyclomine 20 mg tablet 20 mg PO TID PRN abdominal pain 06/15/24 06/18/24 Rx #30 tabs ondansetron 4 mg disintegrating 4 mg PO Q6H PRN PRN Nausea #15 tabs 06/15/24 Unknown Rx tablet apixaban 2.5 mg tablet (Eliquis) 2.5 mg PO BID 06/19/24 06/19/24 History Allergy/AdvReac Type Severity Reaction Status Date / Time No Known Allergies Allergy Verified 06/19/24 10:22 Surgical History H/O section Social History household members: spouse Smoking Status: Current every day smoker tobacco type: cigarettes Smoking packs per day: 1 Smoking cigarettes per day: 20.0 alcohol intake: current alcohol intake frequency: holidays/special occasions only substance use type: does not use Vital Signs Vital Signs Vital Signs: 06/19/24 10:18 06/19/24 10:20 06/19/24 12:20 Temperature 97.5 F L 97.5 F L 98 F Temperature Source Oral Oral Temporal Pulse Rate 87 87 89 Respiratory Rate 18 16 18 Blood Pressure 81/59 L 81/59 L 118/69 Blood Pressure Mean 66 66 85 Pulse Ox 90 93 98 Oxygen Delivery Method Room Air Room Air Room Air 06/19/24 13:00 06/19/24 14:00 Temperature 97.6 F L 97.6 F L Temperature Source Temporal Temporal Pulse Rate 89 78 Respiratory Rate 16 16 Blood Pressure 136/70 H 107/72 Blood Pressure Mean 92 83 Pulse Ox 90 90 Oxygen Delivery Method Room Air Room Air Weight Weight: 132 lb 4.438 oz Body Mass Index (BMI) 24.2 Results Lab / Micro Data 06/19/24 10:32 06/19/24 10:32 Labs: Laboratory Results - last 24 hr 06/19/24 10:32: WBC 11.9 H, RBC 6.07 H, Hgb 16.2 H, Hct 49.1 H, MCV 80.9 L, MCH 26.7 L, MCHC 33.0, RDW Std Deviation 40.8, RDW Coeff of Esperanza 13.8, Plt Count 267, MPV 10.4, Immature Gran % (Auto) 0.500, Neut % (Auto) 78.7 H, Lymph % (Auto) 12.6 L, [place] % (Auto) 7.5, Eos % (Auto) 0.3, Baso % (Auto) 0.4, Absolute Neuts (auto) 9.4 H, Absolute Lymphs (auto) 1.51, Nucleated RBC % 0, Sodium 128 L, Potassium 3.9, Chloride 92 L, Carbon Dioxide 30.0, Anion Gap 6, BUN 22 H, C reatinine 1.37 H, Estim Creat Clear Calc 32.81, Est GFR (MDRD) Af Amer 50 L, Est GFR (MDRD) Non-Af 41 L, BUN/Creatinine Ratio 16.1, Glucose 240 H, Calcium 8.5, Total Bilirubin 0.60, AST 19, ALT 18, Alkaline Phosphatase 81, Total Protein 7.0, Albumin 3.2, Globulin 3.8, Albumin/Globulin Ratio 0.8 L, Lipase 31 06/19/24 11:49: Lactic Acid 0.8 06/19/24 11:49: Lactic Acid Cancelled 06/19/24 12:26: Urine Color Yellow, Urine Clarity Clear, Urine pH 6.0, Ur Specific [place] 1.010, Urine Protein 30 H, Urine Glucose (UA) 250 H, Urine Ketones Negative, Urine Occult Blood 25 H, Urine Nitrite Negative, Urine Bilirubin Negative, Urine Urobilinogen Normal, Ur Leukocyte Esterase Negative, Urine RBC 0-5 SEEN, Urine WBC 0-5 SEEN, Ur Squamous Epith Cells 0-5 SEEN, Urine Bacteria 0 SEEN, Urine Mucus 0 SEEN Imaging Radiology Impression Abdomen/Pelvis CT 06/19/24 11:14 IMPRESSION: Mild pulmonary emphysema with pulmonary nodules measuring up to 4 mm. Presence of pulmonary emphysema on CT is an independent risk factor for lung cancer. Consider LDCT lung cancer screening in the future. Moderate stool in the colon. Hepatic steatosis. Enlarged leiomyomatous uterus with calcified lesions, obscuring the left ovary. Electronically Signed: Lavern Escalera MD at 13:34 EST , Gallbladder Ultrasound 06/19/24 13:40 IMPRESSION: No sonographic evidence of cholelithiasis. Biliary sludge with gallbladder wall thickening and positive sonographic Stuart sign, raising the possibility of acalculus cholecystitis in the appropriate clinical setting. Mildly dilated common bile duct. Consider correlation with ERCP or MRCP to evaluate for choledocholithiasis or other obstructing lesion. Hepatic steatosis. Electronically Signed: Lavern Escalera MD at 15:52 EST , Assessment & Plan Assessment/Plan (1) Abdominal pain: PLAN: Plan The patient is a 64 y/o F w/ PMHx: CKD stage III per GFR trending with unclear subtype, Chronic hyponatremia, HTN, HLD, Anxiety and Depression, COPD, Tobacco use, Diabetes mellitus type II, Factor V Leiden deficiency on Eliquis chronically who presents to the [facility] ED on 06/19/24 with history of constipation for at least last week with 4 days previously episodes of nausea and emesis with abdominal cramping with unremarkable evaluation at that time with noted stool impaction this a.m. with administration of fleets enema however it was not significantly effective although she does report she has been passing stool and tolerating intake but given this prompted ED evaluation to be cautious. #1. Abdominal pain, recent bouts of nausea and emesis with recent resolution tolerating oral intake however with worsening constipation potentially all related with acute constipation however imaging suspicious for possible acute acalculous cholecystitis: Will admit to medical surgical floor, will maintain on IVFs, allow clears until midnight with n.p.o. status following, maintain on IV PPI, IV/po pain control, trend CBC and CMP, will place on IV Zosyn therapy to be cautious, general surgery consulted with evaluation pending. Will temporarily hold NOAC in the interim transition to therapeutic Lovenox at next dose due. Will request HIDA scan per general surgery recommendation. In the interim will place on bowel regimen. #2. Acute on chronic hyponatremia, suspected secondary to hypovolemic component given acute presentation, unclear underlying chronic etiology: Admission CMP with sodium 128, chloride 92, will continue judicious hydration and repeat CMP in AM. #3. Chronic Kidney Disease Stage III, unclear subtype per GFR trend: Admission BUN/Cr 22/1.37, GFR 41, baseline renal function more recently primarily 1.1-1.2, most recently 06/15/2024 creatinine 1.16 at that time, repeat CMP in AM. #4. Diabetes mellitus type II with hyperglycemia: Hemoglobin A1c requested, will hold oral home regimen, continue home insulin regimen, given presentation will allow clear liquids with n.p.o. status after midnight, accu checks w/ ISS. #5. Hypertension: Given low BP upon presentation, improved with judicious fluids we will hold patient amlodipine regimen and lisinopril, resume once clinically appropriate. #6. Hyperlipidemia: Wilkening patient on statin therapy. #7. Anxiety and depression: We will continue patient home sertraline regimen, certainly could be contributing to patient underlying chronic hyponatremia although not severe but coupled with dehydration worsening presentation. #8. Factor V Leiden deficiency with VTE risk: Will temporally hold Eliquis regimen and at next dose to transition to therapeutic Lovenox. #9. DVT prophylaxis: Will temporally hold Eliquis regimen and at next dose to transition to therapeutic Lovenox.
[2024-06-19] MEDS: 0.9% Normal Saline (1000mL) 1,000 ML 100 ML IV (18:17)
[2024-06-19 18:25] LABS: Bedside Glucose 121 mg/dL (74-106)
[2024-06-19] MEDS: Pantoprazole Sodium 40 MG in 0.9% Normal Saline (100mL MB+) 100 ML 330 MG IV (20:58)
[2024-06-19] MEDS: Atorvastatin Calcium 20 MG Tablet PO (21:05)
[2024-06-19] MEDS: Sertraline 50 MG Tablet 150 MG PO (21:05)
[2024-06-19] MEDS: Lisinopril 5 MG Tablet PO (21:06)
[2024-06-19 21:35] LABS: Bedside Glucose 160 mg/dL (74-106)
[2024-06-20] MEDS: 0.9% Normal Saline (1000mL) 1,000 ML 100 ML IV (03:21)
[2024-06-20 03:26] VITALS: BP 130/66; PULSE 76; RESP 18; TEMP 36.9; O2SAT 93
--- NOTE | 2024-06-20 05:55 | NM_ITS ---
CLINICAL: 64-year-old female with history of right upper quadrant abdominal pain. RADIONUCLIDE HEPATOBILIARY SCINTIGRAPHY COMPARISON: Abdominal ultrasound report 06/19/2024, CT of the abdomen-pelvis report 06/19/2024 FINDINGS: Following the intravenous administration of 5.6 mCi of 99m Tc Mebrofenin, hepatobiliary images reveal: 1. Relatively prompt and homogeneous radiopharmaceutical concentration is noted by a normal sized liver. No parenchymal defects are identified. 2. Gallbladder activity is identified at 30 minutes post radiopharmaceutical administration. 3. Small intestinal tract is observed at 45 minutes following tracer injection. 4. Washout of the radiopharmaceutical by the hepatic parenchyma appears qualitatively normal.. Cholecystokinin (0.02 ug/kg) was administered intravenously over a 30-minute period. The post CCK gallbladder ejection fraction calculated at 20 minutes following Cholecystokinin administration was noted to be 15.0 % (normal greater than 35%). The ejection fraction at 30 minutes following tracer injection was 19.0%. NM/Hepatobilliary Img w/Pharm Int IMPRESSION: 1. ABNORMAL 99m Tc Mebrofenin hepatobiliary imaging examination with Cholecystokinin. A. A gallbladder ejection fraction calculated to be less than 35% following the administration of Cholecystokinin is consistent with the presence of functional hepatobiliary disease (gallbladder and/or sphincter of Oddi dyskinesia) and/or organic hepatobiliary disease (chronic acalculous cholecystitis and/or cystic duct syndrome) in patients with intermediate to high pretest probabilities of hepatobiliary illness. (Pedro Strauss et al, Journal of Nuclear Medicine 32:1695, 1991). Electronically Signed: Don Vega DO at 10:45 EST ,
[2024-06-20 05:58] LABS: Absolute Lymphocyte Count 1.88 X10^3/uL (0.83-4.51); Absolute Neutrophil Count 5.1 X10^3/uL (2.0-7.7); Basophil# 0.08 X10^3/uL; Eosinophil# 0.22 X10^3/uL; Eosinophils% 2.7 % (0-5); Hematocrit 43.5 % (37-47); Hemoglobin 14.7 g/dL (12.0-15.0); Lymphocyte # 1.88 X10^3/ul (0.83-4.51); Lymphocyte % 23.3 % (19-41); Mean Corp Hgb Conc 33.8 g/dL (32-36); Mean Corpuscular Hgb 27.7 pg (27.0-32.0); Mean Corpuscular Volume 81.9 fL (81-99); Mean Platelet Vol. 9.9 fl (6.2-12.0); Monocyte# 0.77 X10^3/uL; Monocyte% 9.5 % (0-10); NRBC Flagged by Analyzer 0 % (0-5); Neutrophil # 5.08 X10^3/uL (2.7-7.7); Platelet Count 194 K/mm3 (150-450); RBC Distribution Width CV 14.1 % (11.6-14.6); RBC Distribution Width SD 41.8 fl (35.1-43.9); Red Blood Count 5.31 M/mm3 (4.2-5.4); White Blood Count 8.1 K/mm3 (4.4-11.0)
[2024-06-20 06:11] LABS: ALB/GLOB Ratio 0.9 RATIO (0.9-2.4); AST(SGOT) 16 U/L (15-37); Alanine Aminotransfer ALT/SGPT 17 U/L (13-56); Albumin, Serum 2.8 g/dL (3.2-5.0); Alkaline Phosphatase 66 U/L (45-117); Anion Gap 2 (5-15); BUN 14 mg/dL (7-18); BUN/Creat Ratio 15.8 RATIO (10-20); Calcium,Total 7.8 mg/dL (8.5-10.1); Chloride 102 mmol/L (98-107); Creatinine, Serum 0.88 mg/dL (0.55-1.02); EST Glomerular Filtration Rate 68 mL/min (>60); Est Glom Filt Rate - Afr Amer 83 mL/min (>60); Estimated Creatinine Clearance 51.08 ml/min; Globulin 3.2 g/dL (2.2-4.2); Glucose 110 mg/dL (74-106); Phosphorus 2.8 mg/dL (2.5-4.9); Potassium 3.4 mmol/L (3.5-5.1); Sodium Level 135 mmol/L (136-145)
[2024-06-20 07:00] VITALS: O2SAT 85
--- NOTE | 2024-06-20 07:30 | HP.PCM.SX_ITS ---
[facility] - General General Date of Admission: 06/19/24 HPI Narrative ANE BHAKTA, is a 64 F who presents with several issues. The patient was in the emergency room on Thursday with nausea and vomiting and was given Zofran and Bentyl. She returned yesterday to the emergency room because yesterday morning she started experiencing a lot of epigastric pain and burning. She reports that the pain went away on admission and currently she is symptom-free. She is still having some mild burning but she is not having any pain or nausea or vomiting. She denies fevers or chills. She has not had this pain in the past. [facility] Medical History Anxiety and depression Tobacco dependence DM type 2 (diabetes mellitus, type 2) COPD (chronic obstructive pulmonary disease) GERD (gastroesophageal reflux disease) HTN (hypertension) Factor V Leiden HLD (hyperlipidemia) Home Medications ?Medication ?Instructions ?Recorded ?Last Taken ?Type amlodipine 2.5 mg tablet 2.5 mg PO DAILY blood pressure 10/19/17 06/18/24 History atorvastatin 20 mg tablet (Lipitor) 20 mg PO QHS cholesterol 07/12/18 06/18/24 History insulin glargine 100 unit/mL (3 30 units subcut BID diabetes 07/12/18 06/18/24 History mL) subcutaneous pen (Lantus Solostar U-100 Insulin) lisinopril 5 mg tablet 5 mg PO DAILY blood pressure 07/12/18 06/18/24 History sertraline 50 mg tablet 150 mg PO DAILY depression 07/12/18 06/18/24 History ondansetron 4 mg disintegrating 4 mg PO Q8H PRN PRN Nausea #10 tabs 12/07/19 Unknown Rx tablet dicyclomine 20 mg tablet 20 mg PO TID PRN abdominal pain 06/15/24 06/18/24 Rx #30 tabs ondansetron 4 mg disintegrating 4 mg PO Q6H PRN PRN Nausea #15 tabs 06/15/24 Unknown Rx tablet apixaban 2.5 mg tablet (Eliquis) 2.5 mg PO BID 06/19/24 06/19/24 History Allergy/AdvReac Type Severity Reaction Status Date / Time No Known Allergies Allergy Verified 06/19/24 10:22 Surgical History H/O section Social History household members: spouse Smoking Status: Current every day smoker tobacco type: cigarettes Smoking packs per day: 1 Smoking cigarettes per day: 20.0 alcohol intake: current alcohol intake frequency: holidays/special occasions only substance use type: does not use ROS Constitutional Constitutional: Denies anorexia, chills, fatigue or fever(s) Eyes Eyes: Denies blurry vision ENT HEENT: Denies abnormal hearing Cardiovascular Cardiovascular: Denies chest pain Respiratory/Chest Respiratory/Chest: Denies cough or dyspnea Gastrointestinal Gastrointestinal: Reports abdominal pain, nausea and vomiting; Denies constipation or diarrhea Genitourinary Genitourinary: Denies change in urinary stream or dysuria Integumentary Integumentary: Denies jaundice Neurologic Neurologic: Denies abnormal gait Psychiatric Psychiatric: Denies anxiety Endocrine Endocrinology: Denies flushing Vital Signs Vital Signs Vital Signs: 06/19/24 10:18 06/19/24 10:20 06/19/24 12:20 Temperature 97.5 F L 97.5 F L 98 F Temperature Source Oral Oral Temporal Pulse Rate 87 87 89 Respiratory Rate 18 16 18 Respiratory Effort Respiratory Depth Blood Pressure 81/59 L 81/59 L 118/69 Blood Pressure Mean 66 66 85 Blood Pressure Source Blood Pressure Position Blood Pressure Location Pulse Ox 90 93 98 Oxygen Delivery Method Room Air Room Air Room Air Oxygen Flow Rate (L/min) 06/19/24 13:00 06/19/24 14:00 06/19/24 16:44 Temperature 97.6 F L 97.6 F L 97.6 F L Temperature Source Temporal Temporal Pulse Rate 89 78 78 Respiratory Rate 16 16 16 Respiratory Effort Respiratory Depth Blood Pressure 136/70 H 107/72 107/72 Blood Pressure Mean 92 83 83 Blood Pressure Source Blood Pressure Position Blood Pressure Location Pulse Ox 90 90 90 Oxygen Delivery Method Room Air Room Air Oxygen Flow Rate (L/min) 06/19/24 17:50 06/19/24 19:54 06/19/24 20:00 Temperature 98.9 F 98.9 F Temperature Source Temporal Oral Pulse Rate 75 75 Respiratory Rate 22 H 16 Respiratory Effort Normal Respiratory Depth Normal Blood Pressure 117/65 95/66 Blood Pressure Mean 82 75 Blood Pressure Source Monitor Monitor Blood Pressure Position Semi-Fowlers Semi-Fowlers Blood Pressure Location Right Arm Right Arm Pulse Ox 85 92 Oxygen Delivery Method Room Air Nasal Cannula Oxygen Flow Rate (L/min) 2 06/20/24 03:26 Temperature 98.4 F Temperature Source Oral Pulse Rate 76 Respiratory Rate 18 Respiratory Effort Respiratory Depth Blood Pressure 130/66 H Blood Pressure Mean 87 Blood Pressure Source Monitor Blood Pressure Position Supine Blood Pressure Location Right Arm Pulse Ox 93 Oxygen Delivery Method Nasal Cannula Oxygen Flow Rate (L/min) 2 Weight Weight: 117 lb 4.575 oz Body Mass Index (BMI) 21.4 Physical Exam Const oriented x3 and no apparent distress Resp normal respiratory effort GI normal to inspection, nondistended, normoactive bowel sounds Results Lab / Micro Data 06/20/24 05:24 06/20/24 05:24 Labs: Laboratory Results - last 24 hr 06/19/24 10:32: WBC 11.9 H, RBC 6.07 H, Hgb 16.2 H, Hct 49.1 H, MCV 80.9 L, MCH 26.7 L, MCHC 33.0, RDW Std Deviation 40.8, RDW Coeff of Esperanza 13.8, Plt Count 267, MPV 10.4, Immature Gran % (Auto) 0.500, Neut % (Auto) 78.7 H, Lymph % (Auto) 12.6 L, [place] % (Auto) 7.5, Eos % (Auto) 0.3, Baso % (Auto) 0.4, Absolute Neuts (auto) 9.4 H, Absolute Lymphs (auto) 1.51, Nucleated RBC % 0, Sodium 128 L, Potassium 3.9, Chloride 92 L, Carbon Dioxide 30.0, Anion Gap 6, BUN 22 H, C reatinine 1.37 H, Estim Creat Clear Calc 32.81, Est GFR (MDRD) Af Amer 50 L, Est GFR (MDRD) Non-Af 41 L, BUN/Creatinine Ratio 16.1, Glucose 240 H, Calcium 8.5, Total Bilirubin 0.60, AST 19, ALT 18, Alkaline Phosphatase 81, Total Protein 7.0, Albumin 3.2, Globulin 3.8, Albumin/Globulin Ratio 0.8 L, Lipase 31 06/19/24 11:49: Lactic Acid 0.8 06/19/24 11:49: Lactic Acid Cancelled 06/19/24 12:26: Urine Color Yellow, Urine Clarity Clear, Urine pH 6.0, Ur Specific [place] 1.010, Urine Protein 30 H, Urine Glucose (UA) 250 H, Urine Ketones Negative, Urine Occult Blood 25 H, Urine Nitrite Negative, Urine Bilirubin Negative, Urine Urobilinogen Normal, Ur Leukocyte Esterase Negative, Urine RBC 0-5 SEEN, Urine WBC 0-5 SEEN, Ur Squamous Epith Cells 0-5 SEEN, Urine Bacteria 0 SEEN, Urine Mucus 0 SEEN 06/19/24 18:07: POC Glucose 121 H 06/19/24 21:11: POC Glucose 160 H 06/20/24 05:24: WBC 8.1, RBC 5.31, Hgb 14.7, Hct 43.5, MCV 81.9, MCH 27.7, MCHC 33.8, RDW Std Deviation 41.8, RDW Coeff of Esperanza 14.1, Plt Count 194, MPV 9.9, Immature Gran % (Auto) 0.500, Neut % (Auto) 63.0, Lymph % (Auto) 23.3, Grand % (Auto) 9.5, Eos % (Auto) 2.7, Baso % (Auto) 1.0, Absolute Neuts (auto) 5.1, Absolute Lymphs (auto) 1.88, Nucleated RBC % 0, Sodium 135 L, Potassium 3.4 L, Chloride 102, Carbon Dioxide 31.0, Anion Gap 2 L, BUN 14, Creatinine 0.88, Estim Creat Clear Calc 51.08, Est GFR (MDRD) Af Amer 83, Est GFR (MDRD) Non-Af 68, BUN/Creatinine Ratio 15.8, Glucose 110 H, Calcium 7.8 L, Phosphorus 2.8, Magnesium 2.0, Total Bilirubin 0.60, AST 16, ALT 17, Alkaline Phosphatase 66, T otal Protein 6.0 L, Albumin 2.8 L, Globulin 3.2, Albumin/Globulin Ratio 0.9 Imaging Radiology Impression Abdomen/Pelvis CT 06/19/24 11:14 IMPRESSION: Mild pulmonary emphysema with pulmonary nodules measuring up to 4 mm. Presence of pulmonary emphysema on CT is an independent risk factor for lung cancer. Consider LDCT lung cancer screening in the future. Moderate stool in the colon. Hepatic steatosis. Enlarged leiomyomatous uterus with calcified lesions, obscuring the left ovary. Electronically Signed: Lavern Escalera MD at 13:34 EST , Gallbladder Ultrasound 06/19/24 13:40 IMPRESSION: No sonographic evidence of cholelithiasis. Biliary sludge with gallbladder wall thickening and positive sonographic Stuart sign, raising the possibility of acalculus cholecystitis in the appropriate clinical setting. Mildly dilated common bile duct. Consider correlation with ERCP or MRCP to evaluate for choledocholithiasis or other obstructing lesion. Hepatic steatosis. Electronically Signed: Lavern Escalera MD at 15:52 EST , Assessment & Plan Assessment/Plan (1) Thickening of wall of gallbladder: (2) Abdominal pain: PLAN: Plan The patient presented with burning in her epigastric area as well as a history of nausea and vomiting. I reviewed the patient's CT scan and it appears normal with no stranding around the gallbladder. I reviewed the patient's ultrasound which shows sludge in the gallbladder but the area of thickening is very hazy between the gallbladder and the liver and the outer wall of her gallbladder looks normal thickness. There were no stones. She had a normal gallbladder ultrasound in October of this year. I am ordering a HIDA today. I have also started her on a PPI. Kisahn Ryan MD Pager: [facility] [address] [place] [address], [address] [place] [address] Office:
[2024-06-20 08:00] VITALS: BP 126/72; PULSE 78; RESP 18; TEMP 36.7; O2SAT 85
--- NOTE | 2024-06-20 11:15 | CASEMGMT ---
RN CM Face to Face with patient for initial transition planning/care coordination assessment. RN CM introduced self and role at [facility]. Patient lying in bed, alert and oriented. Patient willing to participate in assessment and is able to answer all questions appropriately. Care providers, pharmacy, and demographics verified. Strata: 2 PCP: Shashi Specialists: none Preferred Pharmacy: [facility] Insurance: MMO Prescription Benefit: yes Living Will/HPOA: none LNOK: Daughter in law, son Living Arrangements: Patient lives alone in a single story home with 2 steps to enter. Patient is independent at home. Transportation: daughter in law, son DME/HHC: Patient has wheelchair, nebulizer, and home oxygen through [facility] at 2lpm at only. Will monitor for increase in home oxygen. No previous HHC or SNF. Patient wishes to discharge home, denies need for home health at this time. Patient states she has no further needs or concerns at this time. CM to follow for discharge planning needs that may arise. Disposition Plan: Patient to discharge home with family support and follow-up plans in place. Alanna PITTMAN, RN, CM
[2024-06-20] MEDS: SINCALIDE 13.2 MCG IV (11:22)
[2024-06-20] MEDS: 0.9% Saline Lock 10 ML Syringe IV (11:28)
[2024-06-20] MEDS: Pantoprazole Sodium 40 MG in 0.9% Normal Saline (100mL MB+) 100 ML 330 MG IV (11:28)
[2024-06-20 12:08] LABS: Bedside Glucose 89 mg/dL (74-106)
[2024-06-20 12:08] LABS: Bedside Glucose 112 mg/dL (74-106)
--- NOTE | 2024-06-20 12:35 | DCINST_ITS ---
Discharge Instructions Diet Discharge Diet: Light diet - advance as tolerated (Avoid acid-producing foods) DC O2, CPAP, BIPAP needs Home O2 Discharge instructions: No Dressing / Incision Discharge Activity: Return to Normal Activity Follow Up Care Please Follow Up With: Kishan Ryan MD When: Please contact our office at [phone], option #2 to schedule a 2 week follow-up Test Results: Test results from this visit will be discussed in further detail at your follow- up appointment, if applicable. Discharge Plan Admission Admit Date/Time: 06/19/24 16:31 Primary Reason for Your Visit: Abdominal pain; gastritis Attending Provider: Kishan Ryan Primary Care Provider: Rosemary Danielle Instructions Additional Instructions / Restrictions: Recommend avoiding acid producing foods i.e. tomato juice, oranges, etc. You will start taking a proton-pump inhibitor and Carafate to assist with healing your new onset of gastritis. Your RUQ u/s did demonstrate some thickening of the gallbladder wall. A HIDA scan was also obtained during your hospitalization which showed a decrease in ejection fraction; meaning the gallbladder is functioning at a lower capacity. We are looking for you to perform 2 weeks of routinely taking the medication prescribed and follow-up with Dr. Ryan at the 2 week mikayla to discuss if the medication is helping or if proceeding with removal of gallbladder is needed. Recommend you also start taking Miralax twice a day until your constipation has resolved. Discharge Orders/Prescriptions Prescriptions: New omeprazole 40 mg capsule,delayed release(DR/EC) 40 mg PO DAILY 30 Days Qty: 30 1RF sucralfate [Carafate] 1 gram tablet 1 g PO TID 30 Days Qty: 90 0RF Continued amlodipine 2.5 MG tablet 2.5 mg PO DAILY Patient Comments: TAKE 1 TABLET DAILY atorvastatin [Lipitor] 20 MG tablet 20 mg PO QHS lisinopril 5 MG tablet 5 mg PO DAILY sertraline 50 MG tablet 150 mg PO DAILY insulin glargine [Lantus Solostar U-100 Insulin] 100/ML insulin pen 30 units subcut BID Rx Instructions: 30 IN AM AND SLIDING SCALEPM ondansetron 4 MG tablet 4 mg PO Q8H PRN PRN (Reason: Nausea) Qty: 10 0RF dicyclomine 20 mg tablet 20 mg PO TID PRN (Reason: abdominal pain) Qty: 30 0RF ondansetron 4 mg tablet,disintegrating 4 mg PO Q6H PRN PRN (Reason: Nausea) Qty: 15 0RF Eliquis 2.5 mg tablet 2.5 mg PO BID Referrals / Follow Up: Kishan Ryan MD [Med Staff - Active Staff] - 07/04/24 (Please contact our office to schedule a follow-up with Dr. Ryan) Shashi,Rosemary, DO [Primary Care Provider] - Disposition Disposition (needs filled in before D/C Order can be placed): Home, Self Care
[2024-06-20 14:30] VITALS: RESP 18; O2SAT 89
[2024-06-20 15:06] VITALS: O2SAT 87; O2SAT 89; O2SAT 91
--- NOTE | 2024-06-20 15:12 | PCM.DC.SUM ---
Providers Date of Admission: 06/19/24 Primary Care Physician: Dr. Rosemary Danielle DO Reason For Visit: ABDOMINAL PAIN, DEHYDRATION Diagnosis Discharge Diagnosis (1) Thickening of wall of gallbladder: Status: Acute Code(s): K82.8 - Other specified diseases of gallbladder (2) Abdominal pain: Status: Acute Code(s): R10.9 - Unspecified abdominal pain Medications at Discharge Home Medications amlodipine 2.5 mg tablet 2.5 mg PO DAILY blood pressure 10/19/17 atorvastatin 20 mg tablet (Lipitor) 20 mg PO QHS cholesterol 07/12/18 insulin glargine 100 unit/mL (3 mL) subcutaneous pen (Lantus Solostar U-100 Insulin) 30 units subcut BID diabetes 07/12/18 lisinopril 5 mg tablet 5 mg PO DAILY blood pressure 07/12/18 sertraline 50 mg tablet 150 mg PO DAILY depression 07/12/18 ondansetron 4 mg disintegrating tablet 4 mg PO Q8H PRN PRN Nausea #10 tabs 12/07/19 dicyclomine 20 mg tablet 20 mg PO TID PRN abdominal pain #30 tabs 06/15/24 ondansetron 4 mg disintegrating tablet 4 mg PO Q6H PRN PRN Nausea #15 tabs 06/15/24 apixaban 2.5 mg tablet (Eliquis) 2.5 mg PO BID blood pressure 06/19/24 omeprazole 40 mg capsule,delayed release 40 mg PO DAILY 30 days #30 caps 06/20/24 sucralfate 1 gram tablet (Carafate) 1 g PO TID 30 days #90 tabs 06/20/24 Hospital Course Summary of Care Provided Minutes Spent on Discharge: 32 Hospital Course: Patient presented with epigastric pain. RUQ u/s was performed demonstrating gallbladder wall thickening. HIDA was performed demonstrating low ejection fraction. CT scan of the ab/pel was obtained demonstrating constipation. Patient started to improve on IV PPI. Regular diet was provided to the patient without any increase in her nausea or abdominal pain. Upon discharge, patient tolerated her diet. She does require supplemental oxygen during the day and with activity. She will need 2 liters of oxygen at rest and 3 liters of oxygen with activity delivered via nasal canula. Patient will need to follow-up with her PCP within 1 week to further discuss oxygen requirements. She will be discharged to home on omeprazole and Carafate. She will need to follow-up with Dr. Ryan in 2 weeks. Weight / BMI Weight Weight: 117 lb 4.575 oz Body Mass Index (BMI) 21.4 ABG / Lab / Microbiology Data 06/20/24 05:24 06/20/24 05:24 Laboratory: Laboratory Results - last 24 hr 06/19/24 18:07: POC Glucose 121 H 06/19/24 21:11: POC Glucose 160 H 06/20/24 05:24: WBC 8.1, RBC 5.31, Hgb 14.7, Hct 43.5, MCV 81.9, MCH 27.7, MCHC 33.8, RDW Std Deviation 41.8, RDW Coeff of [place] 14.1, Plt Count 194, MPV 9.9, Immature Gran % (Auto) 0.500, Neut % (Auto) 63.0, Lymph % (Auto) 23.3, [place] % (Auto) 9.5, Eos % (Auto) 2.7, Baso % (Auto) 1.0, Absolute Neuts (auto) 5.1, Absolute Lymphs (auto) 1.88, Nucleated RBC % 0, Sodium 135 L, Potassium 3.4 L, Chloride 102, Carbon Dioxide 31.0, Anion Gap 2 L, BUN 14, Creatinine 0.88, Estim Creat Clear Calc 51.08, Est GFR (MDRD) Af Amer 83, Est GFR (MDRD) Non-Af 68, BUN/Creatinine Ratio 15.8, Glucose 110 H, Calcium 7.8 L, Phosphorus 2.8, Magnesium 2.0, Total Bilirubin 0.60, AST 16, ALT 17, Alkaline Phosphatase 66, Total Protein 6.0 L, Albumin 2.8 L, Globulin 3.2, Albumin/Globulin Ratio 0.9 06/20/24 08:10: POC Glucose 112 H 06/20/24 11:35: POC Glucose 89 Radiography Diagnostic Testing: Radiology Impression Gallbladder Ultrasound 06/19/24 13:40 IMPRESSION: No sonographic evidence of cholelithiasis. Biliary sludge with gallbladder wall thickening and positive sonographic Stuart sign, raising the possibility of acalculus cholecystitis in the appropriate clinical setting. Mildly dilated common bile duct. Consider correlation with ERCP or MRCP to evaluate for choledocholithiasis or other obstructing lesion. Hepatic steatosis. Electronically Signed: Lavern Escalera MD at 15:52 EST , Hepatobiliary Scan Nuclear Medicine 06/20/24 05:55 IMPRESSION: 1. ABNORMAL 99m Tc Mebrofenin hepatobiliary imaging examination with Cholecystokinin. A. A gallbladder ejection fraction calculated to be less than 35% following the administration of Cholecystokinin is consistent with the presence of functional hepatobiliary disease (gallbladder and/or sphincter of Oddi dyskinesia) and/or organic hepatobiliary disease (chronic acalculous cholecystitis and/or cystic duct syndrome) in patients with intermediate to high pretest probabilities of hepatobiliary illness. (Pedro Strauss et al, Journal of Nuclear Medicine 32:1695, 1990). Electronically Signed: Don Vega DO at 10:45 EST , D/C Instructions Discharge Diet: Light diet - advance as tolerated (Avoid acid-producing foods) DC O2, CPAP, BIPAP Needs RN Home O2 Qualification: Home O2 Qualification: Is the patient on home oxygen No 06/20/24 15:06 Home O2 Qualification: AT REST 1- Pulse Ox at rest 89 06/20/24 15:06 Home O2 Qualification: WITH AMBULATION 1- Pulse Ox with ambulation 87 06/20/24 15:06 1- Oxygen Flow Rate with 0 06/20/24 15:06 ambulation 2- Pulse Ox with ambulation 87 06/20/24 15:06 2- Oxygen Flow Rate with 2 06/20/24 15:06 ambulation 3- Pulse Ox with ambulation 91 06/20/24 15:06 3- Oxygen Flow Rate with 3 06/20/24 15:06 ambulation 3- Stopped test - Unable to No 06/20/24 15:06 obtain pulse ox >89% w/ max oxyg Home O2 Discharge instructions: Yes Type of respiratory needs?: Oxygen Oxygen frequency: Continuous Continuous oxygen liters per minute: 2 liters at rest; 3 liters during activity DC home with Oxygen: Yes Home O2 MD Review: I have reviewed the oxygen testing, and the patient qualifies for home oxygen equipment and portability. The patient is mobile in the home and the community. Please Follow Up With: Kishan Ryan MD When: Please contact our office at [phone], option #2 to schedule a 2 week follow-up Meaningful Use Info Meaningful Use Meaningful Use Diagnoses (Choose all that apply): None applicable Ischemic Stroke Statin Dosing Therapy Reference: STATIN DOSE THERAPY REFERENCE: * Patients > 75 years receive moderate or high dose statin therapy. * Patients 75 years or YOUNGER should receive HIGH intensity statin dose unless contraindicated. You will be required to document reason for non-treatment if statin daily dose does not meet guidelines. HIGH DOSE STATIN THERAPY DAILY Atorvastatin > than or = to 40 mg Rosuvastatin > than or = to 20 mg Amlodipine + Atorvastatin > than or = to 2.5/40 mg Ezetimibe + Simvastatin 10/80 mg Simvastatin 80mg Discharge Plan Admission Admit Date/Time: 06/19/24 16:31 Primary Reason for Your Visit: Abdominal pain; gastritis Attending Provider: Kishan Ryan Primary Care Provider: Rosemary Danielle Instructions Additional Instructions / Restrictions: Recommend avoiding acid producing foods i.e. tomato juice, oranges, etc. You will start taking a proton-pump inhibitor and Carafate to assist with healing your new onset of gastritis. Your RUQ u/s did demonstrate some thickening of the gallbladder wall. A HIDA scan was also obtained during your hospitalization which showed a decrease in ejection fraction; meaning the gallbladder is functioning at a lower capacity. We are looking for you to perform 2 weeks of routinely taking the medication prescribed and follow-up with Dr. Ryan at the 2 week mikayla to discuss if the medication is helping or if proceeding with removal of gallbladder is needed. Recommend you also start taking Miralax twice a day until your constipation has resolved. You are being sent home on oxygen via nasal canula. It is recommended that you use 2 liters at rest and 3 liters while performing any activity. Discharge Orders/Prescriptions Prescriptions: New omeprazole 40 mg capsule,delayed release(DR/EC) 40 mg PO DAILY 30 Days Qty: 30 1RF sucralfate [Carafate] 1 gram tablet 1 g PO TID 30 Days Qty: 90 0RF Continued amlodipine 2.5 MG tablet 2.5 mg PO DAILY Patient Comments: TAKE 1 TABLET DAILY atorvastatin [Lipitor] 20 MG tablet 20 mg PO QHS lisinopril 5 MG tablet 5 mg PO DAILY sertraline 50 MG tablet 150 mg PO DAILY insulin glargine [Lantus Solostar U-100 Insulin] 100/ML insulin pen 30 units subcut BID Rx Instructions: 30 IN AM AND SLIDING SCALEPM ondansetron 4 MG tablet 4 mg PO Q8H PRN PRN (Reason: Nausea) Qty: 10 0RF dicyclomine 20 mg tablet 20 mg PO TID PRN (Reason: abdominal pain) Qty: 30 0RF ondansetron 4 mg tablet,disintegrating 4 mg PO Q6H PRN PRN (Reason: Nausea) Qty: 15 0RF Eliquis 2.5 mg tablet 2.5 mg PO BID Referrals / Follow Up: Kishan Ryan MD [Med Staff - Active Staff] - 07/04/24 (Please contact our office to schedule a follow-up with Dr. Ryan) Rosemary Danielle DO [Primary Care Provider] - 06/27/24 Disposition Disposition (needs filled in before D/C Order can be placed): Home, Self Care Charges/Coding Visit Charges Inpatient E&M: 37669 Disch Hosp >30min
--- NOTE | 2024-06-20 15:59 | CASEMGMT ---
Patient discharging today. Patient qualifies for increase in home oxygen. Script received and referral sent to [facility] via [facility], with request for tank to be delivered to patients room. RN CM in to update patient, family at bedside. Patient voiced understanding. Patient denied further needs or help at discharge. Patient had no further questions or concerns. RN ANAM updated discharge plan.
--- NOTE | 2024-06-20 16:27 | PHA.DC_ITS ---
Pharmacy [facility] has performed discharge medication reconciliation and counseling for this patient. 1. OMEPRAZOLE 40MG PO DAILY 2. SUCRALFATE 1GM PO TID The patient's discharge medication list was reviewed for discrepancies and discrepancies were resolved. The patient was counseled on the following discharge medications and changes in medications for homegoing were reviewed. The Reason for Use, instructions for use, and potential side effects were reviewed for all new medications. The patient's questions regarding all of their medications were answered. The patient was able to verbally demonstrate an understanding of their discharge medications. Medications at Discharge Home Medications amlodipine 2.5 mg tablet 2.5 mg PO DAILY blood pressure 10/19/17 atorvastatin 20 mg tablet (Lipitor) 20 mg PO QHS cholesterol 07/12/18 insulin glargine 100 unit/mL (3 mL) subcutaneous pen (Lantus Solostar U-100 Insulin) 30 units subcut BID diabetes 07/12/18 lisinopril 5 mg tablet 5 mg PO DAILY blood pressure 07/12/18 sertraline 50 mg tablet 150 mg PO DAILY depression 07/12/18 ondansetron 4 mg disintegrating tablet 4 mg PO Q8H PRN PRN Nausea #10 tabs 12/07/19 dicyclomine 20 mg tablet 20 mg PO TID PRN abdominal pain #30 tabs 06/15/24 ondansetron 4 mg disintegrating tablet 4 mg PO Q6H PRN PRN Nausea #15 tabs 06/15/24 apixaban 2.5 mg tablet (Eliquis) 2.5 mg PO BID blood pressure 06/19/24 omeprazole 40 mg capsule,delayed release 40 mg PO DAILY 30 days #30 caps 06/20/24 sucralfate 1 gram tablet (Carafate) 1 g PO TID 30 days #90 tabs 06/20/24
[2024-06-20 17:01] VITALS: BP 129/78; PULSE 89; RESP 18; TEMP 36.6; O2SAT 89
== END 2024-06-20 17:08 | disposition home or self-care (01) | DRG 445 ==
LOC: ED 11:33 → PCU 16:44
PROVIDERS: Physician Assistant; Admitting Provider Surgery; Emergency Provider Emergency Medicine; PCP Internal Medicine; Visit Provider Surgery
DX: K82.8 Other specified diseases of gallbladder (principal); E87.1 Hypo-osmolality and hyponatremia; D68.51 Activated protein C resistance; E11.9 Type 2 diabetes mellitus without complications; E78.5 Hyperlipidemia, unspecified; F17.210 Nicotine dependence, cigarettes, uncomplicated; I95.9 Hypotension, unspecified; J44.9 Chronic obstructive pulmonary disease, unspecified; I10 Essential (primary) hypertension; F32.A Depression, unspecified; K29.70 Gastritis, unspecified, without bleeding; K83.8 Other specified diseases of biliary tract; K59.00 Constipation, unspecified; F41.9 Anxiety disorder, unspecified; K21.9 Gastro-esophageal reflux disease without esophagitis; Z79.4 Long term (current) use of insulin; Z79.899 Other long term (current) drug therapy; Z79.01 Long term (current) use of anticoagulants
CPT/HCPCS: 36415; 74177; 76705; 78227; 80053; 81001; 82962; 83605; 83690; 83735; 84100; 85025; 97802; 99284; A9537; Q9967; A4216; J2805

== ENCOUNTER → 2024-09-15 | Outpatient (CLI) | payer OTHER, SELFPAY ==
--- NOTE | 2024-09-15 13:26 | BI_ITS ---
EXAM: SCRN MAMM (CAD)W/AYDEN BILAT 09/15/2024 CLINICAL HISTORY: F, Age 64 y/o , SCREENING TECHNIQUE: Bilateral screening digital breast tomosynthesis with 2D and 3D images. Computer aided detection. COMPARISON: Prior exam(s) dated 06/10/2022, 07/27/2019. FINDINGS: TISSUE DENSITY: The breast tissue is composed of scattered area of fibroglandular density. Bilateral Breast Mammographic Findings: No significant masses, calcifications or other abnormalities are identified. BI/SCRN MAMM (CAD)W/AYDEN BILAT IMPRESSION: Right Breast: BIRADS 1 NEGATIVE. Left Breast: BIRADS 1 NEGATIVE. OVERALL FINAL ASSESSMENT: BIRADS 1 NEGATIVE. RECOMMENDATION: Routine annual follow-up in 1 Year A letter with findings and recommendations will be mailed to the patient. Reading Location: [facility]
== END | disposition home or self-care (01) ==
PROVIDERS: PCP Internal Medicine; Referring Provider Internal Medicine; Visit Provider Internal Medicine
DX: Z12.31 Encounter for screening mammogram for malignant neoplasm of breast (principal)
CPT/HCPCS: 77063; 77067

== ENCOUNTER → 2024-09-24 | Outpatient (CLI) | payer OTHER, SELFPAY ==
--- NOTE | 2024-09-24 09:38 | CT_ITS ---
PROCEDURE: CHEST WITHOUT CONTRAST 09/24/2024 REASON FOR EXAM: CT OF CHEST WITHOUT CONTRAST - F/U LUNG NODULE TECHNIQUE: Chest CT without contrast. Coronal and Sagittal reconstruction series were provided. One or more dose reduction techniques were used (e.g., Automated exposure control, adjustment of the mA and/or kV according to patient size, use of iterative reconstruction technique RADIATION DOSE SUMMARY: CTDlvol: 6.92 mGy DLP: 240.46 mGycm COMPARISON: Prior examination dated 03/09/2024, currently unavailable. FINDINGS: Hardware: None Lymph nodes: Few mediastinal lymph nodes are identified, subcentimeter in size in short axis, and within normal limits per size criteria. No lymphadenopathy is appreciated. Heart and Vasculature: Not enlarged. Normal morphology. No pericardial effusion. Coronary Artery Calcifications: Mild coronary artery calcifications. Lungs and Airways: Central airway is patent. Emphysematous changes. Small cavitary lesion seen within the left upper lobe measures 4.5 mm (series 4, image 20). [place] 8.5 mm pulmonary nodule within the right upper lobe, posteriorly (series 4, image 36). Additional few scattered punctate 2-4 mm pulmonary nodules are seen bilaterally. Linear atelectasis and/or scarring within the inferior right upper lobe, inferior left upper lobe, right middle lobe and lung bases. No focal airspace consolidation. Pleura: No pleural effusions. No pneumothorax. Upper Abdomen: Visualized portions of the liver and spleen appear intact. Bones: The osseous thorax appears intact. No acute fractures or dislocations are seen. CT/Chest without Contrast IMPRESSION: 1. Diffuse emphysematous changes. 2. Small cavitary lesion within the left upper lobe measures 4.5 mm. [place] pu lmonary nodule within the right upper lobe posteriorly measures 8.5 mm. 3. Additional several scattered punctate 2-4 mm pulmonary nodules are seen, lilia aterally. 4. No focal airspace consolidation, pneumothorax or pleural effusion is seen. 5. Mild coronary artery calcifications. Reading Location: [facility]
== END | disposition home or self-care (01) ==
PROVIDERS: PCP Internal Medicine; Referring Provider Internal Medicine; Visit Provider Internal Medicine
DX: R91.1 Solitary pulmonary nodule (principal)
CPT/HCPCS: 71250

== ENCOUNTER → 2025-05-01 | Outpatient (CLI) | payer OTHER, SELFPAY ==
[2025-05-01 17:39] LABS: Hematocrit 45.6 % (37-47); Hemoglobin 14.4 g/dL (12.0-15.0); Immature Granulocytes Count 0.030 X10^3/uL (0.0-0.0); Mean Corp Hgb Conc 31.6 g/dL (32-36); Mean Corpuscular Volume 88.0 fL (81-99); Mean Platelet Vol. 11.3 fl (6.2-12.0); NRBC Flagged by Analyzer 0 % (0-5); Platelet Count 262 K/mm3 (150-450); RBC Distribution Width CV 14.5 % (11.6-14.6); RBC Distribution Width SD 46.8 fl (35.1-43.9); Red Blood Count 5.18 M/mm3 (4.2-5.4); White Blood Count 9.6 K/mm3 (4.4-11.0)
[2025-05-01 18:09] LABS: AST(SGOT) 16 U/L (<=31); Alanine Aminotransfer ALT/SGPT 15 U/L (<=34); Albumin, Serum 4.0 g/dL (3.4-4.8); Alkaline Phosphatase 89 U/L (35-104); Anion Gap 13 (5-15); BUN 26 mg/dL (4-19); BUN/Creat Ratio 16.8 RATIO (10-20); Calcium,Total 8.9 mg/dL (7.6-11.0); Carbon Dioxide 27.9 mmol/L (21.0-32.0); Chloride 97 mmol/L (98-108); Globulin 3.3 g/dL (2.2-4.2); Glucose 292 mg/dL (70-99); Potassium 4.7 mmol/L (3.3-5.1)
== END | disposition home or self-care (01) ==
LOC: CIMLAB 14:55
PROVIDERS: PCP Internal Medicine; Referring Provider Internal Medicine; Visit Provider Internal Medicine
DX: E11.65 Type 2 diabetes mellitus with hyperglycemia (principal); E11.21 Type 2 diabetes mellitus with diabetic nephropathy; D72.829 Elevated white blood cell count, unspecified
CPT/HCPCS: 36415; 80053; 85025